=== PATIENT | male | born 1975 | race Caucasian/White ===

== ENCOUNTER 2019-02-24 17:38 | Emergency (ER) | payer OTHER ==
[2019-02-24 18:55] LABS: Urine Bacteria 20-50 /HPF (NONE SEEN); Urine Culture Reflex Order REFLEXED; Urine RBC >50 /HPF (NONE SEEN)
[2019-02-24 18:56] LABS: Urine Blood 3+ (NEG); Urine Glucose NEGATIVE (NEG); Urine Protein 2+ (NEG); Urine pH 6.5 (5.0-7.0)
[2019-02-24] MEDS ORDERED: levoFLOXacin 750 MG TAB ONE (19:05)
--- NOTE | 2019-02-24 19:17 | EDPHYS ---
Physician Documentation [facility] Name: Navi Harp Age: 44 yrs Sex: Male : 1975 Arrival Date: 02/24/2019 Time: 17:40 Bed 19 Private MD: ED Physician Jose Agustin HPI: 02/24 18:00 This 44 yrs old Male presents to ER via Ambulatory with complaints of Urinary cp Problem. Historical: - Allergies: 17:44 tramadol; hj - Home Meds: 19:14 Seroquel 300 mg Oral tab 2 tabs at night [Active]; trazodone 150 mg Oral tab 1 tab OD rr5 [Active]; doxepin 10 mg Oral cap 1 cap nightly [Active]; topiramate oral oral [Active]; lorazepam 2 mg Oral tab 1 tablet am 3 tablet night [Active]; - PMHx: 17:44 autism; hj - PSHx: 17:44 Cholecystectomy; Appendectomy; hj - Immunization history:: Adult Immunizations up to date. - Social history:: Smoking status: Patient/guardian denies using tobacco, Patient/guardian denies using alcohol, street drugs. - Ebola Screening: : Patient negative for fever greater than or equal to 101.5 degrees Fahrenheit, and additional compatible Ebola Virus Disease symptoms Patient denies exposure to infectious person Patient denies travel to an Ebola-affected area in the 21 days before illness onset. ROS: 18:10 Constitutional: Negative for fever. cp 18:10 Eyes: Negative for discharge, redness. cp 18:10 Respiratory: Negative for cough, wheezing. 18:10 Abdomen/GI: Negative for vomiting, diarrhea, constipation. 18:10 : Positive for hematuria. 18:10 Neuro: Negative for altered mental status. 18:10 All other systems are negative. Exam: 18:15 Constitutional: The patient appears in no acute distress, alert, awake, non-toxic, well cp developed, well nourished, obese. 18:15 Head/Face: Normocephalic, atraumatic. cp 18:15 Eyes: Periorbital structures: appear normal, Conjunctiva: normal, no exudate, no injection, Sclera: no appreciated abnormality, Lids and lashes: appear normal, bilaterally. 18:15 ENT: External ear(s): are unremarkable, Nose: is normal, Mouth: is normal. 18:15 Chest/axilla: Inspection: normal. 18:15 Cardiovascular: Rate: tachycardic. 18:15 Respiratory: the patient does not display signs of respiratory distress, Respirations: normal, no use of accessory muscles, no retractions, no splinting, no tachypnea. 18:15 Abdomen/GI: Inspection: abdomen appears normal, Palpation: abdomen is soft and non-tender, in all quadrants, involuntary guarding, is not appreciated. 18:15 Back: CVA tenderness, is absent. 18:15 Neuro: Orientation: no acute changes, per family, Mentation: no acute changes, per family. Vital Signs: 17:44 BP 124 / 75; Pulse 105; Resp 18; Temp 98.3(O); Pulse Ox 96% on R/A; Weight 120.66 kg; hj Height 5 ft. 9 in. (175.26 cm); 19:20 BP 108 / 84; Pulse 88; Resp 19; Temp 97.8; Pulse Ox 97% ; rr5 17:44 Body Mass Index 39.28 (120.66 kg, 175.26 cm) MDM: 17:51 Patient medically screened. cp 18:00 Differential diagnosis: UTI, prostatitis, urethritis, sepsis, kidney stone. cp 19:15 Data reviewed: vital signs, nurses notes. cp 19:15 Counseling: I had a detailed discussion with the patient and/or guardian regarding: the cp historical points, exam findings, and any diagnostic results supporting the discharge/admit diagnosis, lab results, the need for outpatient follow up, a family practitioner, to return to the emergency department if symptoms worsen or persist or if there are any questions or concerns that arise at home. 02/24 17:49 Order name: Urine Microscopic Only; Complete Time: 18:59 cp 02/24 18:59 Interpretation: Normal except: UWBC >50; URBC >50; UBACT 20-50. cp 02/24 18:00 Order name: Urine Dipstick--Ancillary (enter results); Complete Time: 18:59 bd 02/24 18:59 Interpretation: Normal except: UBLD 3+; UPROT 2+; UESTR 3+. cp 02/24 17:49 Order name: Urine Dipstick-Ancillary (obtain specimen); Complete Time: 18:57 cp 02/24 18:31 Order name: Urine Culture cp Administered Medications: 19:02 CANCELLED (Physician Discretion): Cipro 500 mg PO once cp 19:10 Drug: LevaQUIN 750 mg Route: PO; cc3 19:26 Follow up: Response: Medication administered at discharge. rr5 Disposition: 19:30 Chart complete. cp Disposition: 02/24/19 19:16 Discharged to Home. Impression: Urinary tract infection, site not specified. - Condition is Stable. - Discharge Instructions: Urinary Tract Infection, Adult. - Prescriptions for Levaquin 750 mg Oral Tablet - take 1 tablet by ORAL route once daily for 8-10 days start evening of 02-25-2019; 9 tablet. - Medication Reconciliation Form, Thank You Letter, Antibiotic Education, Prescription Opioid Use form. - Follow up: Private Physician; When: 2 - 3 days; Reason: Recheck today's complaints. - Problem is new. - Symptoms have improved. Addendum: 02/26/2019 19:42 Co-signature as Attending Physician, Jose Agustin MD. r n Signatures: Dispatcher [employer] EDMS Jose Agustin MD MD rn Joaquin, Henry RN Mark Mahan PA PA cp Jamila Hill cc3 Bassam Dangelo RN RN rr5 Corrections: (The following items were deleted from the chart) 02/24 19:02 19:02 Cipro 500 mg PO once ordered. cp cp 19:26 19:16 02/24/2019 19:16 Discharged to Home. Impression: Urinary tract infection, site rr5 not specified. Condition is Stable. Forms are Medication Reconciliation Form, Thank You Letter, Antibiotic Education, Prescription Opioid Use. Follow up: Private Physician; When: 2 - 3 days; Reason: Recheck today's complaints. Problem is new. Symptoms have improved. cp
--- NOTE | 2019-02-24 19:17 | ER ---
Nurse's Notes [facility] Name: Navi Harp Age: 44 yrs Sex: Male : 1975 Arrival Date: 02/24/2019 Time: 17:40 Bed 19 Private MD: Diagnosis: Urinary tract infection, site not specified Presentation: 02/24 17:42 Presenting complaint: Mother states: i have a sample of his urine and its full of blood hj and i had this sample 20 mins ago; denies fever and chills; dx with autism. Transition of care: patient was not received from another setting of care. Onset of symptoms was February 24, 2019. Risk Assessment: Do you want to hurt yourself or someone else? Patient reports no desire to harm self or others. Initial Sepsis Screen: Does the patient meet any 2 criteria? No. Patient's initial sepsis screen is negative. Does the patient have a suspected source of infection? No. Patient's initial sepsis screen is negative. Care prior to arrival: None. 17:42 Method Of Arrival: Ambulatory 17:42 Acuity: ANABEL 4 hj Historical: - Allergies: 17:44 tramadol; hj - Home Meds: 19:14 Seroquel 300 mg Oral tab 2 tabs at night [Active]; trazodone 150 mg Oral tab 1 tab OD rr5 [Active]; doxepin 10 mg Oral cap 1 cap nightly [Active]; topiramate oral oral [Active]; lorazepam 2 mg Oral tab 1 tablet am 3 tablet night [Active]; - PMHx: 17:44 autism; hj - PSHx: 17:44 Cholecystectomy; Appendectomy; hj - Immunization history:: Adult Immunizations up to date. - Social history:: Smoking status: Patient/guardian denies using tobacco, Patient/guardian denies using alcohol, street drugs. - Ebola Screening: : Patient negative for fever greater than or equal to 101.5 degrees Fahrenheit, and additional compatible Ebola Virus Disease symptoms Patient denies exposure to infectious person Patient denies travel to an Ebola-affected area in the 21 days before illness onset. Screenin:00 Abuse screen: no apparent signs noted. Nutritional screening: No deficits noted. em Tuberculosis screening: No symptoms or risk factors identified. Fall Risk None identified. Assessment: 18:00 General: Appears in no apparent distress. comfortable, Behavior is calm, cooperative, em Denies fever. Pain: Unable to use pain scale. FLACC scale score is 0 out of 10. Neuro: Level of Consciousness is awake, alert, obeys commands, Oriented to person, place, time. Cardiovascular: Capillary refill < 3 seconds Patient's skin is warm and dry. Respiratory: Airway is patent Respiratory effort is even, unlabored, Respiratory pattern is regular, symmetrical. GI: Abdomen is flat, Patient currently denies nausea, vomiting. : Reports hematuria. Derm: Skin is intact, is healthy with good turgor, Skin is pink, warm \T\ dry. Musculoskeletal: Capillary refill < 3 seconds, Range of motion: intact in all extremities. 19:24 Reassessment: Patient appears in no apparent distress at this time. discharge rr5 instruction given and explained to transmission technician without complaints made. vitally stable. Vital Signs: 17:44 BP 124 / 75; Pulse 105; Resp 18; Temp 98.3(O); Pulse Ox 96% on R/A; Weight 120.66 kg; Height 5 ft. 9 in. (175.26 cm); 19:20 BP 108 / 84; Pulse 88; Resp 19; Temp 97.8; Pulse Ox 97% ; rr5 17:44 Body Mass Index 39.28 (120.66 kg, 175.26 cm) ED Course: 17:40 Patient arrived in ED. mr 17:43 Triage completed. hj 17:44 Arm band placed on left wrist. 17:48 [facility] 17:48 Jose Agustin MD is Attending Physician. cp 17:54 Irvin Kaba LVN is Primary Nurse. em 18:00 Patient has correct armband on for positive identification. Bed in low position. Call em light in reach. Adult w/ patient. 18:00 Urine collected: clean catch specimen, blood tinged. em 19:25 No provider procedures requiring assistance completed. Patient did not have IV access rr5 during this emergency room visit. Administered Medications: 19:02 CANCELLED (Physician Discretion): Cipro 500 mg PO once cp 19:10 Drug: LevaQUIN 750 mg Route: PO; cc3 19:26 Follow up: Response: Medication administered at discharge. rr5 Intake: 17:25 IV: 200ml; Total: 200ml. em Outcome: 19:16 Discharge ordered by . cp 19:25 Discharged to home ambulatory, with significant other. rr5 19:25 Condition: stable 19:25 Discharge instructions given to significant other, Instructed on discharge instructions, follow up and referral plans. medication usage, Demonstrated understanding of instructions, follow-up care, medications, Prescriptions given X 1. 19:26 Patient left the ED. rr5 Signatures: Wade, Lu Kaba, Irvin, CATALYST IMPREGNATOR CATALYST IMPREGNATOR em Jeramy Araujo RN RN Mark Vasquez PA PA Jamila Arroyo cc3 Bassam Dangelo RN RN rr5 Corrections: (The following items were deleted from the chart) 17:47 17:44 Pulse 105bpm; Resp 18bpm; Pulse Ox 96% RA; Temp 98.3F Oral; 120.66 kg; Height 5 hj ft. 9 in.; BMI: 39.2; hj 17:49 17:42 Presenting complaint: Mother states: i have a sample of his urine and its full of hj blood and i had this sample 20 mins ago; denies fever and chills; hj 18:58 18:00 Urine collected: clean catch specimen, clear, em em
== END 2019-02-24 19:26 | disposition home or self-care (01) ==
LOC: ER 17:38
DX: N39.0 Urinary tract infection, site not specified (principal); F84.0 Autistic disorder; Z88.5 Allergy status to narcotic agent
CPT/HCPCS: 81003; 81015; 87086; 87088; 99283

== ENCOUNTER 2022-04-04 11:50 | Day surgery (SDC) | payer OTHER ==
[2022-04-04] MEDS ORDERED: PHENYLEPHRINE 10% OPTH 5ML ONE (12:56)
[2022-04-04] MEDS ORDERED: CYCLOPENTOLATE 1% OPTH 2 ML ONE (12:56)
[2022-04-04] MEDS ORDERED: KETAMINE HCL 500 MG/5 ML VIAL ONE (13:21)
[2022-04-04] MEDS ORDERED: TETRACAINE HCL 0.5% 4ML OPTH ONE (13:40)
[2022-04-04] MEDS ORDERED: NA CHLORIDE 0.9% 500 ML ONE (13:43)
[2022-04-04 15:42] LABS: Absolute Lymphocytes (CBC) 1.6 K/uL (0.7-4.9); Hematocrit 46.4 % (39.6-49.0); Lymphocytes % 16.6 % (15.3-44.8); MCV 86.2 fL (80-100); MPV 8.7 fL (7.6-11.3); RBC Red Blood Cell Count 5.38 M/uL (4.33-5.43)
[2022-04-04 16:04] LABS: Bilirubin Total 0.2 mg/dL (0.2-1.0); Magnesium 2.2 mg/dL (1.8-2.4); Potassium 4.4 mmol/L (3.5-5.1); Protein, Total 6.8 g/dL (6.4-8.2); Thyroid Stimulating Hormone 1.78 uIU/mL (0.360-3.740)
[2022-04-04 16:33] VITALS: TEMP 97; O2SAT 95
[2022-04-04 16:34] VITALS: BP 167/85
--- NOTE | 2022-04-05 03:34 | OP ---
Surgeon: Annette Paulino MD Procedure: Examination under anesthesia. The patient was given ketamine intramuscularly in the preoperative area. He was then brought to the operative room and was given 10% phenylephrine and 1% Cyclogyl drops in both eyes for dilation. We were unable to check visual acuity. His anterior segment appeared normal. His lids were normal. Conjunctivae normal. Cornea was clear. Anterior chambers formed and irises were round in both eyes. We were unable to assess pupils or motility because of lack of cooperation. His intra-ocular pressure was checked by a Luis Manuel-Pen. It was 18 mmHg in the right eye and 17 mmHg in the left eye. Retinoscopy was performed. His refraction was -0.5 +0.5 at 30 in the right eye and -1.50 in the left eye. His lens was clear in the right eye. He had about a 3+ posterior subcapsular cataract in the left eye. On funduscopic examination, his periphery, macular and vascular appeared normal in both eyes. His cup-to-disc was 0.3 in the right and 0.5 in the left . Impression: My impression is that Navi has a posterior subcapsular cataract in the left eye. He has a history of iritis, but had no apparent iritis today. The plan is to continue observation. Cataract surgery would be very difficult because of the patient's severe kyphosis and autism. I spoke with his mother and we could consider cataract surgery if he develops a cataract in the right eye, but at this time, we will continue to observe. ELLIE/JO Voice ID: [id number] Report ID: [id number] AZAEL
[2022-04-05 16:53] LABS: Folic Acid, (Folate) 19.6 ng/mL (3.1-17.5); T3 Free 2.51 pg/mL (2.18-3.98)
[2022-04-07 11:07] LABS: ZINC 81 mcg/dL (60-130)
== END 2022-04-04 16:03 | disposition home or self-care (01) ==
LOC: OR 11:50
PROVIDERS: ADMIT Ophthalmology Retina Specialist; ATTEND Ophthalmology Retina Specialist
PROC: 08J0XZZ Inspection of Right Eye, External Approach (ICD-10-PCS; 2022-04-04)
PROC: 08J1XZZ Inspection of Left Eye, External Approach (ICD-10-PCS; 2022-04-04)
PROC: 08J0XZZ Inspection of Right Eye, External Approach (ICD-10-PCS; 2022-04-04)
PROC: 08J1XZZ Inspection of Left Eye, External Approach (ICD-10-PCS; principal; 2022-04-04 13:00)
DX: H25.042 Posterior subcapsular polar age-related cataract, left eye (principal); H25.12 Age-related nuclear cataract, left eye; M45.9 Ankylosing spondylitis of unspecified sites in spine; F84.0 Autistic disorder
CPT/HCPCS: 92018 ×2; 92250 ×2; 85025; 36415; 83735; 80061; 82652; 84443; 83036; 84481; 84439; 82746; 82607; 80053; 84425; 86038; 86141; 83090; 82525; 83525; 84630; J7040

== ENCOUNTER 2022-09-06 06:31 | Day surgery (SDC) | payer OTHER ==
[2022-09-06] MEDS ORDERED: KETAMINE HCL 500 MG/5 ML VIAL ONE (06:56)
[2022-09-06] MEDS ORDERED: Ringers Lactate 1,000 ML IV ONE ×2 (06:57→11:18)
[2022-09-06] MEDS ORDERED: AMPICILLIN SODIUM 2 GM/VIAL VIAL ONE (06:57)
[2022-09-06] MEDS ORDERED: Gentamicin Inj 240 MG in NA CHLORIDE 0.9% 100 ML IV SCH (07:00)
[2022-09-06] MEDS ORDERED: MIDAZOLAM HCL 2 MG/2 ML INJ ONE (07:09)
[2022-09-06 07:56] LABS: Absolute Lymphocytes (CBC) 1.9 K/uL (0.7-4.9); Hematocrit 44.8 % (39.6-49.0); Lymphocytes % 25.8 % (15.3-44.8); MCV 86.7 fL (80-100); MPV 8.3 fL (7.6-11.3); RBC Red Blood Cell Count 5.17 M/uL (4.33-5.43)
[2022-09-06 07:58] LABS: Protime INR 1.08
[2022-09-06 08:06] LABS: Potassium 3.8 mmol/L (3.5-5.1)
[2022-09-06] MEDS ORDERED: FENTANYL CITR 100 MCG/2 ML ONE (09:01)
[2022-09-06] MEDS ORDERED: propofoL 200 MG/20 ML VIAL IV ONE (09:01)
[2022-09-06] MEDS ORDERED: ROCURONIUM 50 MG/5 ML VIAL IV ONE (09:01)
[2022-09-06] MEDS ORDERED: LIDOCAINE 1% MPF 5 ML VIAL ONE (09:01)
[2022-09-06] MEDS ORDERED: ONDANSETRON 4 MG/2 ML VIAL ONE (09:51)
[2022-09-06] MEDS ORDERED: KETOROLAC 30 MG/ML INJ ONE (10:43)
--- NOTE | 2022-09-06 11:44 | RAD REPORT ---
EXAM DESCRIPTION: RAD - Urethrocystogrphy Retrograde - 09/06/2022 11:26 am CLINICAL HISTORY: RIGHT STENT COMPARISON: No comparisons FINDINGS/IMPRESSION: Multiple intraoperative fluoroscopic images were submitted showing cannulation of the right ureter with retrograde injection of contrast and placement of a right-sided ureteral siddhartha nt. Fluoro time: 1 minutes 31 seconds Dose: 75.4 mGy
[2022-09-06] MEDS ORDERED: CODEINE 30MG/APAP 300MG TAB PO PRN (12:31)
[2022-09-06] MEDS ORDERED: PHENAZOPYRIDINE 100MG TAB PO ONE (12:31)
[2022-09-06] MEDS ORDERED: CODEINE 30MG/APAP 300MG TAB ONE (13:40)
--- NOTE | 2022-09-06 14:35 | OP ---
Surgeon: SERGIO NAVA Preoperative Diagnoses: 1.Retained right ureteral stent. 2.Left staghorn renal calculus. Postoperative Diagnoses: 1.Retained right ureteral stent. 2.Left staghorn renal calculus. 3.Encrusted right ureteral stent, not removable. 4.Meatal stenosis. 5.Urethral stricture disease. 6.Ureteral stricture disease. Principal Procedures: 1.Cystoscopy with right retrograde pyelography. 2.Attempted right ureteral stent extraction. 3.Right ureteroscopy with laser lithotripsy of calcified ureteral stent. 4.Right 6-Burundian by 26 cm new ureteral stent placed alongside retained ureteral stent, unable to be extracted. 5.Meatal dilation using sounds. Indication For Procedure: Mr. Harp is a 47-year-old gentleman with some developmental delay and h istory of seizure disorder, on Topamax, who previously underwent a right PCNL by Dr. Ferris in 2019 wit h ureteral stent retained since that time associated with residual 1.1 cm right nephrolithiasis and a left staghorn calculus. He underwent a CT scan of the abdomen and pelvis, which revealed the presen ce of the stent with some calcifications along the course of the stent without appreciable stone cruz en extensive along the stent otherwise. As a result, he was counseled for the opportunity to attempt right ureteral stent extraction cystoscopically recognizing that if this failed, he would require a percutaneous approach. Procedure In Detail: The patient was consented in the preoperative holding area with his mother who consented on his behalf before he was transferred to the operative suite where general anesthesia was induced. Ketamine was required to anesthetize him in order to obtain the preoperative labs and EKG as well as to place an IV. Upon entry into the operative suite, general anesthesia was induced and h e was a difficult intubation due to his habitus and spinal abnormalities. He was then placed in the lithotomy position, extensively padded and secured to the table appropriately due to some lateral dys tocia of his hips and issues managing that with the Yellofin stirrups. His genitalia were prepped wi th Hibiclens and he was draped in standard fashion. The case was begun using a 22-Burundian rigid cysto scope to attempt to enter the meatus; however, there was significant meatal stenosis that prevented p assage of the cystoscope. As a result, urethral sounds were required to dilate the meatus and fossa navicularis to 26-Burundian and then I was able to successfully pass the cystoscope into his meatus and via his urethra into his bladder. Upon traversing his urethra, in the perineal urethra there was sandra dence of some stricture formation that was nonocclusive. As a result, I entered his bladder with eas e and decompressed it of some significant cloudy appearing urine. Preoperative urine culture was sig nificant only for nonspecific growth. As previously stated, he was given gentamicin 2-3 mg/kg IV ant imicrobial prophylaxis along with ampicillin. The stent was then visualized emanating from the right ureteral orifice and was significantly calcified along the coil of the stent. I was able to utilize the alligator graspers to disrupt some of the calcifications off the coil of the stent and then gras p the tip of the stent and attempt to deliver it to the meatus. The stent was able to be delivered j ust to the meatus until a portion of significant resistance was encountered. It was internally encru sted that I was unable to pass a Sensor wire via the stent; so I utilized a snap to hold the stent in its position at the meatus while performing a cystoscopy alongside the stent. Fluoroscopic imagery confirmed the proximal coil of the stent was situated at the level of the ureteropelvic junction and was still coiled indicative of proximal ureteral stent coil calcification. As a result, I passed a 5 -Burundian ureteral access catheter via the cystoscope into the ureteral orifice alongside the retained stent and performed a retrograde pyelogram. Right retrograde pyelography: Using a 70:30 mixture of Omnipaque and saline, contrast was injected via the lumen of the 5-Burundian ur eteral access catheter and did propagate up in irregular right ureteral lumen with some points of dil ation alternating with point of obstruction along the entirety of the course of the ureteral lumen. Contrast did enter the renal pelvis, which was significantly dilated and so I passed the 5-Burundian ure teral access catheter over a Sensor wire, which had been placed via the 5-Burundian ureteral access cath eter, all the way into the renal pelvis and aspirated it of approximately 150-200 cc of cloudy urine. This urine was sent for culture as right renal aspirate urine culture. I then coiled the Sensor wi re within his collecting system before removing the 5-Burundian ureteral access catheter and then perfor cece direct vision semi-rigid ureteroscopy alongside the wire and the retained stent. I was able to navigate the semi-rigid ureteroscope into the mid ureter before it reached a point of obstruction and would no longer pass. While there was calcification along the entirety of the stent, it was not mos tly obstructed along the course of the stent. There was just evidence of ureteral stricture disease along the course of the stent. As a result, since I was unable to reach the proximal coil where the obstruction and prevention of removal of the stent was likely present, I passed a Bentson guidewire u nder direct vision via the semi-rigid ureteroscope into the collecting system coiling and alongside t he safety wire. I then passed a ureteral access sheath over the Bentson guidewire, but only guided i nto the mid distal ureter where it reached 1 of the initial points of ureteral strictured obstruction . It would not pass beyond this, so I passed a flexible ureteroscope over the wire and was able to s uccessfully navigate it all the way into the renal pelvis. I then surveyed the pelvis down to the UP J where the coil of the stent was observed and was indeed significantly calcified with stone occupyin g the central component of the proximal coil of the stent prohibiting its uncoiling. As a result, I employed a 200 nm laser fiber and attempted to fragment the stone off that coil. While I was able to fragment some of the stone, unfortunately now that the stent was situated in the position at the UPJ , I was unable to target the coil adequately given the angulation of the flexible ureteroscope to rem ove sufficient calcification to be able to dislodge it and remove the ureteral stent. Despite attemp ts to try to advance the stent back up the ureter and deliver the coil more into the renal pelvis for further use of flexible ureteroscopic management, this was afforded. As a result, I removed the ure teroscope and back-loaded the cystoscope over the indwelling safety wire before passing a 6-Burundian by 26 cm double-J right ureteral stent fresh one alongside the retained encrusted right ureteral stent. This was placed to decompress his hydronephrotic right renal unit. I then removed the Super Stiff wire that was passed via the flexible ureteroscope as a place gracia while attempting to pass the ret ained stent back more into his pelvis as previously described. In the end, I decompressed his bladde r of fluid and urine and left a 20-Burundian urethral Campuzano catheter to allow further decompression of h is right renal unit and hydronephrosis. The remaining coil of the retained right ureteral stent dist ally was delivered back into his bladder and the patient was taken out of the lithotomy position be re being awakened from general anesthesia, transferred to a stretcher, and then transferred to the re covery room in good condition. Complications: None. Discharge Disposition: He will require a percutaneous approach to extraction of the right ureteral s tent, and given the massive size of his left staghorn calculus, he will also require left PCNL. LAUREN/JO Voice ID: [id number] Report ID: [id number]
[2022-09-06 15:15] VITALS: BP 153/94; TEMP 96.2; O2SAT 97
--- NOTE | 2022-09-06 17:08 | EKG ---
Test Date: 2022-09-06 Test Time: 07:28:38 Superintendent Local: WANDA MEASUREMENT RESULTS: Intervals: Rate: 76 HI: 168 QRSD: 102 QT: 380 QTc: 427 [place]: P: 28 HI: 168 QRS: 34 T: 81 INTERPRETIVE STATEMENTS: Normal sinus rhythm Nonspecific T wave abnormality Abnormal ECG No previous ECG available for comparison Electronically Signed On 09-06-22 17:08:02 TAXI SERVICER by Chaitanya Gibson
--- NOTE | 2022-09-07 00:14 | P.CNS ---
Date of Consult: 09/07/22 47-year-old autistic gentleman with seizure disorder and recurrent nephrolithiasis s/p right PCNL over a year ago by Dr. Ferris at [facility] with retained and encrusted right ureteral stent s/p attempted right ureteral stent extraction with ureteroscopy and laser lithotripsy of stone along the encrusted stent before the procedure was aborted due to inability to relieve sufficient stone burden from the stent in order to remove the stent. During the procedure, very cloudy and purulent appearing urine was aspirated from the c ollecting system and sent for culture as right renal aspirate urine culture, and a fresh double-J stent was placed alongside the indwelling encrusted and retained right ureteral stent. The patient was transferred to the recovery room with a urethral Campuzano catheter in place, which was removed prior to his discharge from day surgery. He was given perioperative antimicrobials per routine, and preoperative urine culture revealed nonspecific growth, but despite this, the patient contacted me via the answering service with fever above 102 and some tachypnea. As a result, I recommended prompt emergency department evaluation. Patient seen in the emergency department. At his behavioral baseline according to his mother No tachypnea or dyspnea at this time Persistent tachycardia with heart rate in the 110-120 range Patient awake and in no apparent distress He had been voiding with some hematuria apparent Blood cultures x2 obtained Assessment and recommendation: 7-year-old autistic gentleman with seizure disorder and recurrent nephrolithiasis s/p right PCNL over a year ago by Dr. Ferris at [facility] with retained and encrusted right ureteral stent s/p attempted right ureteral stent extraction with ureteroscopy and laser lithotripsy of stone along the encrusted stent, aborted, now with pyelonephritis, possible sepsis. -Confirm intraoperative right renal aspirate urine culture in process -Initiate cefepime IV antimicrobial therapy -Resuscitative IV fluid therapy -Inpatient management and monitoring
--- NOTE | 2022-09-07 02:07 | P.HP ---
Certification for Inpatient Patient admitted to: Inpatient With expected LOS: >2 Midnights Patient will require the following post-hospital care: None Practitioner: I am a practitioner with admitting privileges, knowledge of patient current condition, hospital course, and medical plan of care. Services: Services provided to patient in accordance with Admission requirements found in Title 42 Section 412.3 of the Code of Federal Regulations Patient History Date of Service: 09/07/22 Reason for admission: Severe sepsis, pyelonephritis History of Present Illness: 47-year-old male with history of autism, hypertension, seizure disorder had a procedure yesterday on 09/06/[address] Joyner with attempted right ureteral stent extraction. Patient has had a right ureteral stent in place for the last 3 years. During the procedure he was noted to have retained right ureteral stent, left staghorn renal calculus, encrusted right ureteral stent not removable, meatal stenosis, urethral stricture. The right-sided stent was unable to be removed during the procedure, a right 6 Telugu by 26 cm new ureteral stent was placed alongside the retained ureteral stent, patient also had meatal dilation using sounds intraoperatively. Patient was given intraoperative antibiotics and subsequently discharged home with prescription for Augmentin patient is nonverbal, mother reports that she noticed patient was breathing fast and shallow and checked his temperature, found to be febrile to 102 and brought him into the emergency department for evaluation. Patient was noted to be febrile, tachycardic upon arrival to the emergency department he was given 30 cc/kg IV fluid bolus Labs were significant for marked leukocytosis, bandemia lactic acid 2.1 moderately elevated high-sensitivity troponin. Case was discussed with urology, patient was started on cefepime in the emergency department. Blood cultures were obtained, also noted that patient received intraoperative urine culture during his procedure yesterday. We will need to follow-up for these results. Patient needs criteria for severe sepsis, will admit for further evaluation and management. Allergies Sulfa (Sulfonamide Antibiotics) Adverse Reaction (Verified 09/06/22 08:02) Nausea/Vomiting tramadol Adverse Reaction (Verified 09/06/22 08:02) very depressed, lethargic Home Medications: LORazepam [Ativan*] 2 mg PO DAILY WITH BREAKFAST 07/22/15 LORazepam [Ativan*] 4 mg PO BEDTIME 07/22/15 Trazodone [Desyrel*] 225 mg PO BEDTIME 07/22/15 Buspirone HCl [Buspar] 20 mg PO BEDTIME 03/30/22 Acetaminophen with Codeine [Acetaminophen-Cod #4 Tablet] 1 each PO BIDP PRN 08/31/22 Cenobamate [Xcopri] 200 mg PO DAILY 08/31/22 Duloxetine HCl [Cymbalta] 2 cap PO BEDTIME 08/31/22 Famotidine [Pepcid] 40 mg PO BEDTIME 08/31/22 L.acidoph,Paracasei, B.lactis [Probiotic] 6 each PO DAILY 08/31/22 Multivitamin 1 each PO DAILY 08/31/22 [place]-3 Fatty Acids [[place]-3] 2 cap PO DAILY 08/31/22 Quetiapine Fumarate [Seroquel] 2 tab PO BEDTIME 08/31/22 Tamsulosin HCl 0.4 mg PO DAILY 08/31/22 hydrOXYzine HCL [Atarax] 100 mg PO DAILY 08/31/22 hydroCHLOROthiazide [Hydrochlorothiazide] 25 mg PO BEDTIME 08/31/22 Amox/Clavulanate [Augmentin 875-125 Tab] 1 each PO BID #14 tab 09/06/22 - Past Medical/Surgical History -: Autism -: Seizure disorder -: Hypertension -: Ureteral stent Psychosocial/ Personal History: Patient lives at home with his mother who is his primary caregiver. - Family History Family History: Reviewed- Non-Contributory - Social History Smoking Status: Never smoker Alcohol use: No CD- Drugs: No Caffeine use: No Place of Residence: Home Review of Systems is unable to be obtained Physical Examination - Vital Signs Temperature: 96.2 F Blood Pressure: 153/94 Pulse: 95 Respirations: 19 - Physical Exam General: Alert, Obese, Other (Nonverbal at baseline, appears uncomfortable/agitated) HEENT: Atraumatic, Normocephalic Neck: Supple Respiratory: Clear to auscultation bilaterally Cardiovascular: No edema, Normal pulses Capillary refill: <2 Seconds Gastrointestinal: Normal bowel sounds, No tenderness Musculoskeletal: No swelling, No contractures, No erythema Integumentary: No breakdown, No significant lesion Neurological: Other (Nonverbal) - Studies Laboratory Data (last 24 hrs) 09/06/22 07:38: PT 11.9, INR 1.08 09/06/22 07:38: Sodium 139, Potassium 3.8, BUN 20 H, Creatinine 1.09, Glucose 110 H 09/06/22 07:38: WBC 7.30, Hgb 14.7, Hct 44.8, Plt Count 200 Assessment and Plan - Plan Assessment: Severe sepsis secondary to pyelonephritis with retained right ureteral stent S/P new right-sided ureteral stent placement 09/06 Elevated troponin Seizure disorder Hypertension Autism-nonverbal at baseline Plan: Severe sepsis secondary to pyelonephritis with retained right ureteral stent S/P new right-sided ureteral stent placement 09/06 Seen by urology in ED, continue cefepime. Follow intraoperative urine cultures from procedure on 09/06. Patient received 30 cc/kg IV fluid bolus, initial lactate 2.1 will trend. Blood cultures obtained. Elevated troponin Suspect demand ischemia, cardiology consulted, echocardiogram ordered. Systemic anticoagulation not ordered given recent surgical procedure, hematuria, suspected demand ischemia related to sepsis. Seizure disorder continue home medications Autism-nonverbal at baseline Noted, at baseline per mother Hypertension Hold oral antihypertensive agents in the setting of sepsis, restart when appropriate. DVT PPX: Lovenox Code status:Full Discharge Plan: Home Plan to discharge in: Greater than 2 days - Advance Directives Does patient have a Living Will: No Does patient have a Durable POA for Healthcare: No - Code Status/Comfort Care Code Status Assessed: Yes (Full code) Critical Care: No Time Spent Managing Pts Care (In Minutes): 70
== END 2022-09-06 14:50 | disposition home or self-care (01) ==
LOC: OR 06:31
PROVIDERS: ATTEND Urology
PROC: 0TF68ZZ Fragmentation in Right Ureter, Via Natural or Artificial Opening Endoscopic (ICD-10-PCS; 2022-09-06)
PROC: 0T768DZ Dilation of Right Ureter with Intraluminal Device, Via Natural or Artificial Opening Endoscopic (ICD-10-PCS; principal; 2022-09-06 08:30)
DX: N20.2 Calculus of kidney with calculus of ureter (principal); N35.911 Unspecified urethral stricture, male, meatal; N13.5 Crossing vessel and stricture of ureter without hydronephrosis; Z18.89 Other specified retained foreign body fragments; N35.914 Unspecified anterior urethral stricture, male
CPT/HCPCS: 36415; 51610; 74450; 80048; 85025; 85610; 87086; 87088; 88108; 88305; 93005; J0290; J1580; J2001; J2250; J2405; J2704; J3010; J7120

== ENCOUNTER 2022-09-06 19:51 | Inpatient (IN) | payer OTHER ==
--- NOTE | 2022-09-06 21:38 | ER ---
Nurse's Notes [facility] Name: aNvi Harp Age: 47 yrs Sex: Male : 1975 Arrival Date: 09/06/2022 Time: 19:53 Bed 5 Private MD: Diagnosis: Pyelonephritis acute;Chronic obstructive pyelonephritis;Autistic disorder;Obesity, unspecified;Fever, unspecified;Severe sepsis without septic shock;Elevated white blood cell count;Bandemia;Unspecified kidney failure-insufficency Presentation: 09/06 20:58 Chief complaint: Parent and/or Guardian states: had stent removlal procedure with dr nanci joyner today unable to remove stent mother reports pt now running fever has hematuria and newly incontinent. Coronavirus screen: Vaccine status: Patient reports receiving the 2nd dose of the covid vaccine. Ebola Screen: Patient negative for fever greater than or equal to 101.5 degrees Fahrenheit, and additional compatible Ebola Virus Disease symptoms. Initial Sepsis Screen:. 20:58 Method Of Arrival: Wheelchair kl 20:58 Acuity: ANABEL 3 kl 21:04 Acuity: ANABEL 2 kl 21:07 Initial Sepsis Screen: Does the patient meet any 2 criteria? Temp <36.0*C (96.8*F)) or kl > 38.3*C (100.9*F). Altered Mental Status. HR > 90 bpm. Yes Does the patient have a suspected source of infection? Yes: Dysuria/Frequency/Urgency/UTI. 22:00 Risk Assessment: Do you want to hurt yourself or someone else? Patient reports no [facility] desire to harm self or others. 22:00 Onset of symptoms was September 06, 2022. jb4 Triage Assessment: 21:01 General: Appears distressed, uncomfortable, Behavior is agitated, anxious. Pain: Unable to use pain scale. Does not appear to understand pain scale. Historical: - Allergies: 21:00 tramadol; kl 21:00 Sulfa (Sulfonamide Antibiotics); kl - Home Meds: 21:02 Augmentin Oral [Active]; BP Med [Active]; kl - PMHx: 21:00 autism; kidney stone; kl 21:02 Hypertensive disorder; kl - PSHx: 21:00 renal stent; kl - Immunization history:: Adult Immunizations up to date. - Social history:: Smoking status: Patient denies any tobacco usage or history of. - Family history:: not pertinent. Screenin:00 [facility] ED Fall Risk Assessment (Adult) History of falling in the last 3 months, jb4 including since admission No falls in past 3 months (0 pts) Confusion or Disorientation No (0 pts) Score/Fall Risk Level 0 - 2 = Low Risk Oriented to surroundings, Maintained a safe environment. Abuse screen: Denies threats or abuse. Nutritional screening: No deficits noted. Tuberculosis screening: No symptoms or risk factors identified. Assessment: 22:00 General: Appears distressed, uncomfortable, Behavior is cooperative, anxious. Pain: jb4 Unable to use pain scale. FLACC scale score is 0 out of 10. Neuro: Level of Consciousness is awake, alert, obeys commands, Oriented to Unable to assess due to autism.. Cardiovascular: Patient's skin is warm and dry. Respiratory: Airway is patent Respiratory effort is even, labored, Respiratory pattern is symmetrical, tachypnea. GI: Abdomen is non-distended, obese. : Parent/caregiver report the patient having incontinence since Since surgery with hematuria. EENT: No signs and/or symptoms were reported regarding the EENT system. Derm: Skin is intact, Skin is pink, warm \T\ dry. Musculoskeletal: Circulation, motion, and sensation intact. Range of motion: intact in all extremities. 23:00 Reassessment: Per Dr. Joyner, Urine sample was sent from OR during the pt visit this jb4 morning and a new sample is not needed as long as lab received the first. Verified lab received sample. 23:00 Reassessment: Patient appears in no apparent distress at this time. No changes from jb4 previously documented assessment. Patient and/or family updated on plan of care and expected duration. Pain level reassessed. 09/07 00:00 Reassessment: Pt is resting in bed with eyes closed, respirations are even and jb4 unlabored, no s/s of pain or distress noted. 01:00 Reassessment: Patient appears in no apparent distress at this time. No changes from jb4 previously documented assessment. Patient and/or family updated on plan of care and expected duration. Pain level reassessed. 02:00 Reassessment: Patient appears in no apparent distress at this time. No changes from jb4 previously documented assessment. Patient and/or family updated on plan of care and expected duration. Pain level reassessed. 03:00 Reassessment: Patient appears in no apparent distress at this time. No changes from jb4 previously documented assessment. Patient and/or family updated on plan of care and expected duration. Pain level reassessed. 04:00 Reassessment: Pt is awake and alert at this time, respirations are even and unlabored jb4 with no s/s of pain or distress noted. mother remains at the bedside. 04:53 Reassessment: Patient and/or family updated on plan of care and expected duration. Pain jb4 level reassessed. Pt changed, bed bath given, placed in Gown and in hospital bed, mother given reclining chair to rest in. respirations continue to be labored and tachypneic. Mother refused further attempts at an EKG due to it making the pt more upset and not wanting to get him more worked up now that he is more calm with staff. 06:42 Reassessment: Attempted second IV for morning lab draws, initial IV no longer giving jb4 blood, flushes well with no s/s of infiltration or phlebitis. Mother agreed to attempt EKG. EKG read sinus rhythm at 100 bpm. Pt tolerated second IV attempt and EKG well. 17:46 Reassessment: attempted to call report to 4th floor. stated the nurse will call me back.ph Vital Signs: 09/06 21:03 BP 113 / 72; Pulse 132; Temp 101.2(TE); Pulse Ox 97% ; kl 22:00 BP 119 / 79; Pulse 120; Resp 29; Pulse Ox 92% on 2 lpm NC; jb4 23:28 Weight 132 kg (M); jb4 09/07 00:00 BP 120 / 76; Pulse 116; Resp 19; Temp 98.1(TE); Pulse Ox 92% on 2 lpm NC; jb4 04:00 BP 107 / 67; Pulse 99; Resp 24; Temp 98.6(TE); Pulse Ox 91% on 2 lpm NC; jb4 ED Course: 09/06 19:53 Patient arrived in ED. jj6 20:20 Mark Blake MD is Attending Physician. [facility] 21:00 Triage completed. 21:37 Adam Correa MD is Hospitalizing Provider. [facility] 21:38 Bassam Agustin MD is Hospitalizing Provider. la1 22:00 Arm band placed on right wrist. jb4 22:00 Initial lab(s) drawn, by me, sent to lab. Inserted saline lock: 22 gauge in right jb4 forearm, using aseptic technique. Blood collected. 09/07 00:32 Notified ED physician of a critical lab result(s). Lac 2.1, Trop 165.3. ll3 00:48 Notified ED physician of a critical lab result(s). wbc 252.2. kl 01:31 Notified ED physician of a critical lab result(s). Bands 26%. kl 03:28 Manuel Hilliard, RN is Primary Nurse. jb4 06:55 No provider procedures requiring assistance completed. Patient admitted, IV remains in jb4 place. 07:29 Patient has correct armband on for positive identification. Placed in gown. Bed in low kc6 position. Call light in reach. Side rails up X2. Adult w/ patient. Administered Medications: 09/06 23:54 Drug: Tylenol 1000 mg Route: PO; jb4 23:54 Drug: Cefepime 2 grams Route: IVPB; Rate: 200 ml/hr; Infused Over: 30 mins; Site: right jb4 forearm; 23:54 Drug: NS 0.9% (30 ml/kg) 30 ml/kg Route: IV; Rate: bolus; Site: right forearm; jb4 09/07 00:49 Drug: morphine 2 mg Route: IVP; Infused Over: 4 mins; Site: right forearm; lg3 Medication: 07:29 VIS not applicable for this client. kc6 Outcome: 09/06 21:38 Decision to Hospitalize by Provider. [facility] 09/07 04:57 Admitted to ER Hold. Please see [facility] for further documentation. jb4 Condition: stable Discharge instructions given to family, Instructed on the need for admit, Demonstrated understanding of instructions. 18:36 Patient left the ED. kc6 Signatures: Manuela Hoffman, RN Mark Arteaga MD MD cha Attema, Lee, CONDENSER CLEANER-C CONDENSER CLEANER-Cla1 Taty Mo RN RN Manuel Hilliard RN RN jb4 Loly Pathak RN RN lg3 Ngozi Hernandez j6 Lb Lowry RN RN 3 Jeri Cortez RN RN kc6 Corrections: (The following items were deleted from the chart) 09/06 21:00 21:00 PMHx: Autism; kl kl 09/07 05:19 04:53 Reassessment: Patient and/or family updated on plan of care and expected jb4 duration. Pain level reassessed. Pt changed, bed bath given, placed in Gown and in hospital bed, mother given reclining chair to rest in. respirations continue to be labored and tachypneic. jb4 06:51 09/06 23:54 BP 119 / 79; Pulse 120bpm; Resp 29bpm; Pulse Ox 92% 2 lpm Nasal Cannula; [id number]
--- NOTE | 2022-09-06 21:39 | EDPHYS ---
Physician Documentation [facility] Name: Navi Harp Age: 47 yrs Sex: Male : 1975 Arrival Date: 09/06/2022 Time: 19:53 Bed 5 Private MD: Mark Eid HPI: 09/06 21:26 This 47 yrs old Male presents to ER via Wheelchair with complaints of Post shellie Surgical Bleeding, Post Surgical Pain. 21:26 The patient complains of pain in the right mid back and right low back. The pain does shellie not radiate. Onset: The symptoms/episode began/occurred 1 day(s) ago. Modifying factors: The symptoms are alleviated by nothing. the symptoms are aggravated by nothing. The patient presents with pain and weakness. The symptoms are located in the right mid back and right low back. Onset: The symptoms/episode began/occurred 1 day(s) ago. Modifying factors: The patient symptoms are alleviated by nothing, the patient symptoms are aggravated by any movement. Historical: - Allergies: 21:00 tramadol; kl 21:00 Sulfa (Sulfonamide Antibiotics); kl - Home Meds: 21:02 Augmentin Oral [Active]; BP Med [Active]; kl - PMHx: 21:00 autism; kidney stone; kl 21:02 Hypertensive disorder; kl - PSHx: 21:00 renal stent; kl - Immunization history:: Adult Immunizations up to date. - Social history:: Smoking status: Patient denies any tobacco usage or history of. - Family history:: not pertinent. ROS: 21:26 Constitutional: Negative for fever, chills, and weight loss, Eyes: Negative for injury, shellie pain, redness, and discharge, ENT: Negative for injury, pain, and discharge, Neck: Negative for injury, pain, and swelling, Cardiovascular: Negative for chest pain, palpitations, and edema, Respiratory: Negative for shortness of breath, cough, wheezing, and pleuritic chest pain, : Negative for injury, bleeding, discharge, and swelling, MS/Extremity: Negative for injury and deformity, Skin: Negative for injury, rash, and discoloration, Neuro: Negative for headache, weakness, numbness, tingling, and seizure, Psych: Negative for depression, anxiety, suicide ideation, homicidal ideation, and hallucinations, Allergy/Immunology: Negative for hives, rash, and allergies, Endocrine: Negative for neck swelling, polydipsia, polyuria, polyphagia, and marked weight changes. 21:26 Abdomen/GI: Positive for abdominal pain. 21:26 Back: Positive for flank pain, on the right. Exam: 21:26 Constitutional: This is a well developed, well nourished patient who is awake, alert, shellie and in no acute distress. Head/Face: Normocephalic, atraumatic. Eyes: Pupils equal round and reactive to light, extra-ocular motions intact. Lids and lashes normal. Conjunctiva and sclera are non-icteric and not injected. Cornea within normal limits. Periorbital areas with no swelling, redness, or edema. ENT: Nares patent. No nasal discharge, no septal abnormalities noted. Tympanic membranes are normal and external auditory canals are clear. Oropharynx with no redness, swelling, or masses, exudates, or evidence of obstruction, uvula midline. Mucous membranes moist. Neck: Trachea midline, no thyromegaly or masses palpated, and no cervical lymphadenopathy. Supple, full range of motion without nuchal rigidity, or vertebral point tenderness. No Meningismus. Chest/axilla: Normal chest wall appearance and motion. Nontender with no deformity. No lesions are appreciated. Cardiovascular: Regular rate and rhythm with a normal S1 and S2. No gallops, murmurs, or rubs. Normal PMI, no JVD. No pulse deficits. Respiratory: Lungs have equal breath sounds bilaterally, clear to auscultation and percussion. No rales, rhonchi or wheezes noted. No increased work of breathing, no retractions or nasal flaring. Male : Normal genitalia with no discharge or lesions. Skin: Warm, dry with normal turgor. Normal color with no rashes, no lesions, and no evidence of cellulitis. MS/ Extremity: Pulses equal, no cyanosis. Neurovascular intact. Full, normal range of motion. Neuro: Awake and alert, GCS 15, oriented to person, place, time, and situation. Cranial nerves II-XII grossly intact. Motor strength 5/5 in all extremities. Sensory grossly intact. Cerebellar exam normal. Normal gait. Psych: Awake, alert, with orientation to person, place and time. Behavior, mood, and affect are within normal limits. 21:26 Respiratory: the patient does not display signs of respiratory distress, Respirations: no acute changes, Breath sounds: are clear throughout, Respiratory rate: 20 09/07 06:38 ECG was reviewed by the Attending Physician. [facility] Vital Signs: 09/06 21:03 BP 113 / 72; Pulse 132; Temp 101.2(TE); Pulse Ox 97% ; kl 22:00 BP 119 / 79; Pulse 120; Resp 29; Pulse Ox 92% on 2 lpm NC; jb4 23:28 Weight 132 kg (M); jb4 09/07 00:00 BP 120 / 76; Pulse 116; Resp 19; Temp 98.1(TE); Pulse Ox 92% on 2 lpm NC; jb4 04:00 BP 107 / 67; Pulse 99; Resp 24; Temp 98.6(TE); Pulse Ox 91% on 2 lpm NC; jb4 MDM: 09/06 21:07 Patient medically screened. [facility] 21:33 Differential diagnosis: nephrolithiasis, pyelonephritis, UTI, diverticulitis, shellie pancreatitis, viral Infection, bacterial infection. Differential Diagnosis altered mental status. Data reviewed: vital signs, nurses notes, lab test result(s), EKG, radiologic studies, plain films. Consideration of Admission/Observation Patient was admitted/placed on observation. Escalation of care including admission/observation considered. I considered the following discharge prescriptions or medication management in the emergency department Medications were administered in the Emergency Department. See MAR. Independent interpretation of the following test(s) in the Emergency Department CT Scan: My interpretation is no ct stone. Historians other than the Patient: family. Care significantly affected by the following chronic conditions: Hypertension, autism. 09/07 06:37 Counseling: I had a detailed discussion with the patient and/or guardian regarding: the [facility] historical points, exam findings, and any diagnostic results supporting the discharge/admit diagnosis, the presence of at least one elevated blood pressure reading (>120/80) during this emergency department visit, lab results, radiology results, the need for further work-up and treatment in the hospital. 09/06 20:22 Order name: CBC with Diff [facility] 09/06 20:22 Order name: Comprehensive Metabolic Panel [facility] 09/06 21:04 Order name: Urine Microscopic Only la 09/06 21:04 Order name: Urine Culture la 09/06 21:04 Order name: Lactate w/ 2H reflex if indic. la1 09/06 21:04 Order name: Blood Culture Adult (2) la1 09/06 21:05 Order name: COVID-19/FLU A+B la1 09/06 21:14 Order name: Magnesium [facility] 09/06 21:14 Order name: NT PRO-BNP [facility] 09/06 21:14 Order name: PT-INR [facility] 09/06 21:14 Order name: Troponin HS [facility] 09/06 23:33 Order name: COVID-19/FLU A+B; Complete Time: 00:12 EDMS 09/06 21:05 Order name: Chest Single View XRAY la1 09/07 00:09 Order name: Protime (+INR); Complete Time: 00:12 EDMS 09/07 00:31 Order name: Basic Metabolic Panel; Complete Time: 00:36 EDMS 09/07 00:31 Order name: Liver (Hepatic) Function; Complete Time: 00:36 EDMS 09/07 00:31 Order name: Troponin High Sensitivity; Complete Time: 00:36 EDMS 09/07 00:31 Order name: NT PRO-BNP; Complete Time: 00:36 EDMS 09/07 00:31 Order name: Magnesium; Complete Time: 00:36 EDMS 09/07 00:32 Order name: Lactate w/ 2H reflex if indic.; Complete Time: 00:36 EDMS 09/07 00:49 Order name: CBC with Automated Diff EDMS 09/07 01:31 Order name: Manual Differential EDMS 09/07 05:02 Order name: Lactate Sepsis 2 HR Follow-up EDMS 09/07 06:41 Order name: Blood Culture EDMS 09/07 12:23 Order name: CBC with Automated Diff EDMS 09/07 12:57 Order name: Basic Metabolic Panel EDMS 09/07 12:57 Order name: Troponin High Sensitivity EDMS 09/07 16:39 Order name: Troponin High Sensitivity EDMS 09/06 20:22 Order name: IV Saline Lock; Complete Time: 03:29 shellie 09/06 21:14 Order name: EKG; Complete Time: 21:15 shellie 09/06 21:14 Order name: Cardiac monitoring; Complete Time: 21:20 shellie 09/06 21:14 Order name: Labs collected and sent; Complete Time: 03:29 shellie 09/06 21:14 Order name: O2 Per Protocol; Complete Time: 03:29 shellie 09/06 21:14 Order name: O2 Sat Monitoring; Complete Time: 03:29 shellie 09/06 21:22 Order name: IV Saline Lock - Large Bore; Complete Time: 02:50 shellie 09/06 21:36 Order name: Abdomen 1 View (KUB) XRAY [facility] 09/06 21:56 Order name: RAD; Complete Time: 22:35 EDMS 09/06 22:32 Order name: RAD; Complete Time: 22:35 EDMS EC:38 Rate is 100 beats/min. Rhythm is regular. QRS [place] is Normal. IA interval is normal. shellie QRS interval is normal. QT interval is normal. No Q waves. T waves are Normal. No ST changes noted. Clinical impression: Sinus tachycardia and No evidence of ischemia. Interpreted by me. Reviewed by me. Administered Medications: 09/06 23:54 Drug: Tylenol 1000 mg Route: PO; jb4 23:54 Drug: Cefepime 2 grams Route: IVPB; Rate: 200 ml/hr; Infused Over: 30 mins; Site: right jb4 forearm; 23:54 Drug: NS 0.9% (30 ml/kg) 30 ml/kg Route: IV; Rate: bolus; Site: right forearm; jb4 09/07 00:49 Drug: morphine 2 mg Route: IVP; Infused Over: 4 mins; Site: right forearm; lg3 Disposition Summary: 09/06/22 21:38 Hospitalization Ordered Hospitalization Status: Inpatient Admission shellie Condition: Stable shellie Problem: new shellie Symptoms: have improved shellie Bed/Room Type: Standard shellie Provider: Bassam Agustin(09/06/22 21:38) la1 Location: Telemetry/MedSurg (Inpatient)(09/07/22 17:35) ja1 Room Assignment: 411(09/07/22 17:35) ja Diagnosis - Pyelonephritis acute shellie - Chronic obstructive pyelonephritis shellie - Autistic disorder shellie - Obesity, unspecified shellie - Fever, unspecified shellie - Severe sepsis without septic shock shellie - Elevated white blood cell count shellie - Bandemia shellie - Unspecified kidney failure - insufficency shellie Forms: - Medication Reconciliation Form shellie - SBAR form shellie Signatures: Dispatcher [employer] EDJayda Quinn Kimberly RN Mark Arteaga MD MD cha Attema, Lee, ANNEALING TORCH OPERATOR-C ANNEALING TORCH OPERATOR-Cla1 Jana Islas, RN RN Manuel Sarmiento, RN RN jb4 Saul Garrett RN RN ja1 Loly Pathak RN RN lg3 Corrections: (The following items were deleted from the chart) 09/06 21:00 21:00 PMHx: Autism; nanci christine 21:38 21:38 SunnyAdam cha la1 09/07 00:54 09/06 21:38 Telemetry/MedSurg (Inpatient) [facility] cg 09/07 00:54 09/06 21:38 shellie cg 09/07 03:29 09/06 21:04 Urine Dipstick-Ancillary ordered. walter jb4 09/07 04:52 09/06 21:14 EKG - Nurse/Tech ordered. shellie jb4 09/07 17:33 00:54 [facility] ER HOLD cg bd 17:33 00:54 ERHOLD- cg bd 17:35 17:33 Telemetry/MedSurg (Inpatient) bd ja1 17:35 17:33 411 bd ja1
--- NOTE | 2022-09-06 21:55 | RAD REPORT ---
EXAM DESCRIPTION: RAD - Chest Single View - 09/06/2022 9:37 pm CLINICAL HISTORY: fever, recent surgery Chest pain. COMPARISON: No comparisons FINDINGS: Portable technique limits examination quality. The lungs are underinflated resulting in vascular crowding. The patient's chin obscures a portion the lung apices bilaterally. Cardiac size is mildly prominent.
--- NOTE | 2022-09-06 22:30 | RAD REPORT ---
EXAM DESCRIPTION: RAD - Abdomen 1 View (KUB) - 09/06/2022 10:20 pm CLINICAL HISTORY: ABD PAIN Pain COMPARISON: Urethrocystogrphy Retrograde dated 09/06/2022 FINDINGS: There are 2 double-J stents noted on the right. Staghorn type calculus presumably involves the left kidney. Ankylosing spondylitis of the lumbar spine is likely present.
[2022-09-06 23:33] LABS: SARS-COV-2 RT PCR NEGATIVE (NEGATIVE)
[2022-09-06] MEDS ORDERED: CEFEPIME 2 GM VIAL ONE (23:36)
[2022-09-06] MEDS ORDERED: ACETAMINOPHEN 500 MG TAB ONE (23:36)
[2022-09-06] MEDS ORDERED: NA CHLORIDE 0.9% 1,000 ML ONE (23:36)
[2022-09-06] MEDS ORDERED: NA CHLORIDE 0.9% 100 ML ONE (23:36)
[2022-09-07 00:09] LABS: Protime INR 1.21
[2022-09-07 00:21] LABS: Bilirubin Direct 0.1 mg/dL (0-0.2); Bilirubin Total 0.3 mg/dL (0.2-1.0); Magnesium 1.7 mg/dL (1.6-2.4); Potassium 3.9 mmol/L (3.5-5.1); Protein, Total 6.7 g/dL (6.4-8.2)
[2022-09-07 00:31] LABS: Troponin High Sensitivity 165.3 pg/mL (<58.9)
[2022-09-07 00:38] LABS: Absolute Lymphocytes (CBC) 0.5 K/uL (0.7-4.9); Hematocrit 46.4 % (39.6-49.0); Lymphocytes % 2.3 % (15.3-44.8); MCV 85.5 fL (80-100); MPV 8.9 fL (7.6-11.3); RBC Red Blood Cell Count 5.43 M/uL (4.33-5.43)
[2022-09-07] MEDS ORDERED: MORPHINE 2 MG/ML SYR ONE (00:44)
[2022-09-07 01:30] LABS: Blood Morphology Comment NOT SEEN (NOT SEEN); Platelet Estimate ADEQ
[2022-09-07] MEDS ORDERED: NA CHLORIDE 0.9% 1,000 ML ONE (02:08)
--- NOTE | 2022-09-07 02:09 | P.HP ---
Certification for Inpatient Patient admitted to: Inpatient With expected LOS: >2 Midnights Patient will require the following post-hospital care: None Practitioner: I am a practitioner with admitting privileges, knowledge of patient current condition, hospital course, and medical plan of care. Services: Services provided to patient in accordance with Admission requirements found in Title 42 Section 412.3 of the Code of Federal Regulations <Dequan Flower - Last Filed: 09/07/22 02:07> Patient History Date of Service: 09/07/22 Reason for admission: Sepsis, pyelonephritis History of Present Illness: 47-year-old male with history of autism, hypertension, seizure disorder had a procedure yesterday on 09/06/[address] Joyner with attempted right ureteral stent extraction. Patient has had a right ureteral stent in place for the last 3 years. During the procedure he was noted to have retained right ureteral stent, left staghorn renal calculus, encrusted right ureteral stent not removable, meatal stenosis, urethral stricture. The right-sided stent was unable to be removed during the procedure, a right 6 Albanian by 26 cm new ureteral stent was placed alongside the retained ureteral stent, patient also had meatal dilation using sounds intraoperatively. Patient was given intraoperative antibiotics and subsequently discharged home with prescription for Augmentin patient is nonverbal, mother reports that she noticed patient was breathing fast and shallow and checked his temperature, found to be febrile to 102 and brought him into the emergency department for evaluation. Patient was noted to be febrile, tachycardic upon arrival to the emergency department he was given 30 cc/kg IV fluid bolus Labs were significant for marked leukocytosis, bandemia lactic acid 2.1 moderately elevated high-sensitivity troponin. Case was discussed with urology, patient was started on cefepime in the emergency department. Blood cultures were obtained, also noted that patient received intraoperative urine culture during his procedure yesterday. We will need to follow-up for these results. Patient needs criteria for severe sepsis, will admit for further evaluation and management. - Past Medical/Surgical History -: Autism -: Seizure disorder -: Hypertension -: Previous ureteral stent Psychosocial/ Personal History: Patient lives at home with his mother - Family History Family History: Reviewed- Non-Contributory - Social History Smoking Status: Never smoker Alcohol use: No CD- Drugs: No Caffeine use: No Place of Residence: Home <Dequan Flower - Last Filed: 09/07/22 02:07> Date of Service: 09/07/22 <Bassam Agustin - Last Filed: 09/07/22 20:43> Allergies Sulfa (Sulfonamide Antibiotics) Adverse Reaction (Verified 09/06/22 08:02) Nausea/Vomiting tramadol Adverse Reaction (Verified 09/06/22 08:02) very depressed, lethargic Home Medications: LORazepam [Ativan*] 2 mg PO DAILY WITH BREAKFAST 07/22/15 LORazepam [Ativan*] 4 mg PO BEDTIME 07/22/15 Trazodone [Desyrel*] 225 mg PO BEDTIME 07/22/15 Buspirone HCl [Buspar] 20 mg PO BEDTIME 03/30/22 Acetaminophen with Codeine [Acetaminophen-Cod #4 Tablet] 1 each PO BIDP PRN 08/31/22 Cenobamate [Xcopri] 200 mg PO DAILY 08/31/22 Duloxetine HCl [Cymbalta] 2 cap PO BEDTIME 08/31/22 Famotidine [Pepcid] 40 mg PO BEDTIME 08/31/22 L.acidoph,Paracasei, B.lactis [Probiotic] 6 each PO DAILY 08/31/22 Multivitamin 1 each PO DAILY 08/31/22 [place]-3 Fatty Acids [[place]-3] 2 cap PO DAILY 08/31/22 Quetiapine Fumarate [Seroquel] 2 tab PO BEDTIME 08/31/22 Tamsulosin HCl 0.4 mg PO DAILY 08/31/22 hydrOXYzine HCL [Atarax] 100 mg PO DAILY 08/31/22 hydroCHLOROthiazide [Hydrochlorothiazide] 25 mg PO BEDTIME 08/31/22 Amox/Clavulanate [Augmentin 875-125 Tab] 1 each PO BID #14 tab 09/06/22 Review of Systems is unable to be obtained General: Fever <Dequan Flower - Last Filed: 09/07/22 02:07> Physical Examination - Physical Exam General: Alert, In no apparent distress, Other (Nonverbal at baseline) HEENT: Atraumatic, PERRLA, Mucous membr. moist/pink, EOMI, Sclerae nonicteric Neck: Supple, 2+ carotid pulse no bruit, No LAD, Without JVD or thyroid abnormality Respiratory: Clear to auscultation bilaterally, Normal air movement Cardiovascular: Regular rate/rhythm, Normal S1 S2 Capillary refill: <2 Seconds Gastrointestinal: Normal bowel sounds, No tenderness Musculoskeletal: No tenderness Integumentary: No rashes Neurological: Normal strength at 5/5 x4 extr, Normal tone - Studies Laboratory Data (last 24 hrs) 09/06/22 23:48: PT 13.3 H, INR 1.21 09/06/22 23:48: Sodium 136, Potassium 3.9, BUN 21 H, Creatinine 1.37 H, Glucose 126 H, Magnesium 1.7, Total Bilirubin 0.3, AST 42 H, ALT 55, Alkaline Phosphatase 104 09/06/22 23:48: WBC 20.20 H*, Hgb 15.4, Hct 46.4, Plt Count 197 09/06/22 20:22: Sodium Cancelled, Potassium Cancelled, BUN Cancelled, Creatinine Cancelled, Glucose Cancelled, Total Bilirubin Cancelled, AST Cancelled, ALT Cancelled, Alkaline Phosphatase Cancelled <Dequan Flower - Last Filed: 09/07/22 02:07> - Studies Laboratory Data (last 24 hrs) 09/06/22 23:48: PT 13.3 H, INR 1.21 09/06/22 23:48: Sodium 136, Potassium 3.9, BUN 21 H, Creatinine 1.37 H, Glucose 126 H, Magnesium 1.7, Total Bilirubin 0.3, AST 42 H, ALT 55, Alkaline Phosphatase 104 09/06/22 23:48: WBC 20.20 H*, Hgb 15.4, Hct 46.4, Plt Count 197 09/06/22 20:22: Sodium Cancelled, Potassium Cancelled, BUN Cancelled, Creatinine Cancelled, Glucose Cancelled, Total Bilirubin Cancelled, AST Cancelled, ALT Cancelled, Alkaline Phosphatase Cancelled Microbiology Data (last 24 hrs): 09/06/22 22:40 Blood - Blood Anaerobic Blood Culture - Final 09/06/22 22:55 Blood - Blood Anaerobic Blood Culture - Final <Bassam Agustin - Last Filed: 09/07/22 20:43> Assessment and Plan - Plan Assessment: Severe sepsis secondary to pyelonephritis with retained right ureteral stent S/P new right-sided ureteral stent placement 09/06 Elevated troponin Seizure disorder Hypertension Autism-nonverbal at baseline Plan: Severe sepsis secondary to pyelonephritis with retained right ureteral stent S/P new right-sided ureteral stent placement 09/06 Seen by urology in ED, continue cefepime. Follow intraoperative urine cultures from procedure on 09/06. Patient received 30 cc/kg IV fluid bolus, initial lactate 2.1 will trend. Blood cultures obtained. Elevated troponin Suspect demand ischemia, cardiology consulted, echocardiogram ordered. Systemic anticoagulation not ordered given recent surgical procedure, hematuria, suspected demand ischemia related to sepsis. Seizure disorder continue home medications Autism-nonverbal at baseline Noted, at baseline per mother Hypertension Hold oral antihypertensive agents in the setting of sepsis, restart when appropriate. DVT PPX: Lovenox Code status:Full Discharge Plan: Home Plan to discharge in: Greater than 2 days - Advance Directives Does patient have a Living Will: No Does patient have a Durable POA for Healthcare: No - Code Status/Comfort Care Code Status Assessed: Yes (Full code) Critical Care: No Time Spent Managing Pts Care (In Minutes): 70 <Dequan Flower - Last Filed: 09/07/22 02:07> - Plan Patient seen and examined on rounds at ~noon Mother at bedside, states he seems to be slightly improved, eating well, but groaning / making more noises than typical for him. Still seems to understand what is being said. Voiding in diaper Patient with some pain/tenderness of R abdomen continue empiric antibiotics - cefepime monitor closely, f/u PVR urology following f/u cultures elevated troponin most likely demand ischemia in setting of sepsis cardiology consulted close monitoring of fluid status <Bassam Agustin - Last Filed: 09/07/22 20:43>
[2022-09-07] MEDS ORDERED: ONDANSETRON 4 MG/2 ML VIAL IV PRN (04:57)
[2022-09-07] MEDS: Ringers Lactate 1,000 ML IV SCH ×2 (04:57→20:26)
[2022-09-07] MEDS ORDERED: Ringers Lactate 1,000 ML IV ONE (06:11)
[2022-09-07 06:44] VITALS: BMI 45.6
--- NOTE | 2022-09-07 08:20 | P.PN ---
Date of Service: 09/07/22 47-year-old gentleman with history of seizure disorder and autism s/p retained ureteral stent following right PCNL over a year ago with Dr. Ferris, now s/p ureteroscopy and laser lithotripsy attempted stent extraction, failed, with purulent urine drained from the kidney, culture pending, and severe sepsis with signs of shock and CHF/cardiac compromise. Patient persistently tachycardic and tachypneic this morning Creatinine 1.37, troponin I 1.65, proBNP 1040 Voiding and wearing a depends undergarment, but uncertain how successfully. Appreciate cardiology consultation and management. -Recommend bladder scan random postvoid residual assessment, and as long as <200 cc, will continue to observe. If > 300 cc, repeat bladder scan 2 to 3 hours later, and if > 400 cc, place urethral Campuzano catheter. Of note, patient generally combative to attempts at invasive medical procedures and may require ketamine or sedation if urethral Campuzano catheter required. May instead consider a condom catheter to measure and maintain I's and O's. -Continue antimicrobial prophylaxis. Cefepime reasonable choice given the suspicion for nosocomial organisms. -Continue IV fluid resuscitation judiciously given signs of CHF.
[2022-09-07] MEDS ORDERED: CEFEPIME 2 GM VIAL ONE (08:51)
[2022-09-07] MEDS ORDERED: NA CHLORIDE 0.9% 100 ML ONE (08:52)
[2022-09-07] MEDS ORDERED: ENOXAPARIN 40 MG/0.4 ML SQ ONE (08:52)
[2022-09-07] MEDS: CEFEPIME 2 GM in NA CHLORIDE 0.9% 100 ML IV SCH ×2 (09:00→20:31)
[2022-09-07] MEDS: ENOXAPARIN 40 MG/0.4 ML SQ SCH (09:00)
[2022-09-07] MEDS: ACETAMINOPHEN 500 MG TAB PO PRN (09:10)
[2022-09-07] MEDS ORDERED: ACETAMINOPHEN 500 MG TAB ONE (09:11)
[2022-09-07 12:19] LABS: Absolute Lymphocytes (CBC) 0.5 K/uL (0.7-4.9); Hematocrit 41.4 % (39.6-49.0); Lymphocytes % 3.3 % (15.3-44.8); MPV 8.2 fL (7.6-11.3); RBC Red Blood Cell Count 4.87 M/uL (4.33-5.43)
[2022-09-07 12:57] LABS: Potassium 3.8 mmol/L (3.5-5.1); Troponin High Sensitivity 109.8 pg/mL (<58.9)
--- NOTE | 2022-09-07 12:58 | EKG ---
Test Date: 2022-09-07 Test Time: 06:34:12 Buckle Sorter: NEIL MEASUREMENT RESULTS: Intervals: Rate: 100 GA: 168 QRSD: 96 QT: 384 QTc: 495 [place]: P: 18 GA: 168 QRS: 21 T: 88 INTERPRETIVE STATEMENTS: Normal sinus rhythm Cannot rule out Anterior infarct, age undetermined Abnormal ECG Compared to ECG 09/06/2022 07:28:38 Myocardial infarct finding now present T-wave abnormality no longer present Electronically Signed On 09-07-22 12:56:48 HEALTH INSURANCE ADJUSTER by Chaitanya Gibson
--- NOTE | 2022-09-07 13:50 | ECHO ---
HEIGHT: 5 ft 7 in WEIGHT: 291 lb 0.163 oz DATE OF STUDY: 09/07/[address]: Dequan Flower NP 2-DIMENSIONAL: YES M.MODE: YES DOPPLER: YES COLOR FLOW: YES TDS: NO PORTABLE: YES DEFINITY: NO BUBBLE STUDY: NO DIAGNOSIS: ELEVATED TROPONIN CARDIAC HISTORY: CATHERIZATION: SURGERY: PROSTHETIC VALVE: PACEMAKER: MEASUREMENTS (cm) DIASTOLIC (NORMALS) SYSTOLIC (NORMALS) IVSd 1.1 (0.6-1.2) LA Diam (1.9-4.0) LVEF 65% LVIDd 4.8 (3.5-5.7) LVIDs 3.5 (2.0-3.5) %FS 27% LVPWd 1.2 (0.6-1.2) Ao Diam 3.7 (2.0-3.7) 2 DIMENSIONAL ASSESSMENT: RIGHT ATRIUM: NORMAL LEFT ATRIUM: NORMAL RIGHT VENTRICLE: NORMAL LEFT VENTRICLE: NORMAL TRICUSPID VALVE: NORMAL MITRAL VALVE: NORMAL PULMONIC VALVE: NORMAL AORTIC VALVE: NORMAL PERICARDIAL EFFUSION: NONE AORTIC ROOT: NORMAL LEFT VENTRICULAR WALL MOTION: NORMAL DOPPLER/COLOR FLOW: NORMAL COMMENTS: 1. NORMAL LEFT VENTRICULAR EJECTION FRACTION 60-65%. 2. NORMAL WALL MOTION. TECHNOLOGIST: Pollo HERMOSILLO
[2022-09-07] MEDS ORDERED: HOME MED 1 EA UNK (Quetiapine Fumarate [Seroquel] 200 MG Tablet) PO SCH (21:00)
[2022-09-07] MEDS ORDERED: LORAZEPAM 2 MG PO SCH (21:00)
[2022-09-07] MEDS ORDERED: HOME MED 1 EA UNK (Famotidine [Pepcid] 40 MG Tablet) PO SCH (21:00)
[2022-09-07] MEDS ORDERED: HOME MED 1 EA UNK (Buspirone Hcl [Buspar] 10 MG Tablet) PO SCH (21:00)
[2022-09-07] MEDS: TRAZODONE 150 MG TAB PO SCH (21:00)
--- NOTE | 2022-09-07 21:12 | P.PN ---
Subjective Date of Service: 09/07/22 Chief Complaint: Sepsis, pyelonephritis Subjective: No new changes (Still somewhat tachypneic per his mother with complaints of some right flank pain) Physical Examination - Vital Signs Temperature: 98.2 F Blood Pressure: 136/81 Pulse: 113 Respirations: 28 Pulse Ox (%): 93 - Physical Exam General: Alert HEENT: Mucous membr. moist/pink Respiratory: Other (Mild tachypnea, but difficult to appreciate relative to his mental status baseline breathing and communication) Gastrointestinal: Soft and benign - Studies Laboratory Data (last 24 hrs) 09/06/22 23:48: PT 13.3 H, INR 1.21 09/06/22 23:48: Sodium 136, Potassium 3.9, BUN 21 H, Creatinine 1.37 H, Glucose 126 H, Magnesium 1.7, Total Bilirubin 0.3, AST 42 H, ALT 55, Alkaline Phosphatase 104 09/06/22 23:48: WBC 20.20 H*, Hgb 15.4, Hct 46.4, Plt Count 197 09/06/22 20:22: Sodium Cancelled, Potassium Cancelled, BUN Cancelled, Creatinine Cancelled, Glucose Cancelled, Total Bilirubin Cancelled, AST Cancelled, ALT Cancelled, Alkaline Phosphatase Cancelled Microbiology Data (last 24 hrs): 09/06/22 22:40 Blood - Blood Anaerobic Blood Culture - Final 09/06/22 22:55 Blood - Blood Anaerobic Blood Culture - Final Assessment And Plan - Current Problems (Diagnosis) (1) Sepsis Current Visit: Yes Status: Acute Qualifiers: Sepsis type: sepsis due to unspecified organism Sepsis acute organ dysfunction status: with acute organ dysfunction (2) Retained ureteral stent Current Visit: No Status: Chronic (3) Right nephrolithiasis Current Visit: No Status: Chronic - Plan 47-year-old gentleman with autism and seizure disorder, poorly communicative with retained right calcified ureteral stent resistant to ureteroscopic extraction but complicated by development of suspected pyelonephritic sepsis associated with purulent renal drainage discovered intraoperatively with attempted stent extraction postop day 1 with CHF/mild cardiac compromise. -Appreciate cardiology consultation -Echocardiogram reviewed with normal wall motion and EF 60 to 65% -TroponinI declining from 1 65-109.8 now 93.1 as of 3:49 PM with creatinine 1.17 from 1.37 -Continue cefepime -Follow-up renal aspirate urine culture sent intraoperatively yesterday -Tylenol with codeine for pain management -Check bladder scan PVR to ensure adequate emptying given the large volume fluid resuscitation underway
[2022-09-07] MEDS: QUETIAPINE 100MG TAB PO SCH (21:18)
[2022-09-07] MEDS: FAMOTIDINE 20 MG TAB PO SCH (21:18)
[2022-09-07] MEDS: LORAZEPAM 1 MG TABLET PO SCH (21:19)
[2022-09-07] MEDS: BUSPIRONE HCL 5 MG TABLET PO SCH (21:19)
[2022-09-08 06:56] LABS: Absolute Lymphocytes (CBC) 0.9 K/uL (0.7-4.9); Hematocrit 40.8 % (39.6-49.0); Lymphocytes % 7.7 % (15.3-44.8); MCV 85.1 fL (80-100); MPV 8.6 fL (7.6-11.3); RBC Red Blood Cell Count 4.79 M/uL (4.33-5.43)
[2022-09-08 07:11] LABS: Potassium 3.8 mmol/L (3.5-5.1)
--- NOTE | 2022-09-08 07:17 | P.PN ---
Date of Service: 09/08/22 Subjective: improving eating well afebrile overnight slight tachycardia mom at bedside reports still having some shallow / fast breathing, points to right abdomen when asked where he has pain ROS: 10 point ROS as noted above, otherwise negative Physical exam GEN: Alert, nonverbal but grunts and motions HEENT: Normal conjunctiva, sclera anicteric CV: intermittent sinus tachycardia, trace b/l edema Pulm: shallow respirations, mild tachypnea; on room air ABD: Soft, Right sided tenderness Neuro: moves all extremities Problem List Severe sepsis secondary to pyelonephritis with retained right ureteral stent S/P new right-sided ureteral stent placement 09/06 Elevated troponin, suspected demand ischemia Seizure disorder Hypertension Autism-nonverbal at baseline Severe sepsis secondary to pyelonephritis with retained right ureteral stent S/P new right-sided ureteral stent placement 09/06 concern for pyelonephritis recent instrumentation f/u urine culture from 09/06 continue empiric antibiotics f/u blood cultures fever curve improved urology consulted Elevated troponin Suspect demand ischemia, cardiology consulted, echocardiogram ordered. Seizure disorder continue home medications Autism-nonverbal at baseline Noted, at baseline per mother Hypertension Hold oral antihypertensive agents in the setting of sepsis, restart when appropriate. VTE: Lovenox Code: Full Dispo: home, ~2 days
[2022-09-08] MEDS ORDERED: LORAZEPAM 2 MG PO SCH (08:00)
[2022-09-08] MEDS: Ringers Lactate 1,000 ML IV SCH ×3 (08:13→20:49)
[2022-09-08] MEDS: LORAZEPAM 1 MG TABLET PO SCH ×2 (08:15→20:40)
[2022-09-08] MEDS: CEFEPIME 2 GM in NA CHLORIDE 0.9% 100 ML IV SCH ×2 (08:15→20:46)
[2022-09-08] MEDS: TAMSULOSIN 0.4 MG SR CAP PO SCH (08:16)
[2022-09-08] MEDS: HOME MED 1 EA UNK (L.Acidoph,Paracasei, B.Lactis [Probiotic] Capsule) PO SCH (08:17)
[2022-09-08] MEDS: hydrOXYzine HCL 25 MG TAB PO SCH (08:17)
[2022-09-08] MEDS: CENOBAMATE 200 MG PO SCH (08:19)
[2022-09-08] MEDS: ENOXAPARIN 40 MG/0.4 ML SQ SCH (08:19)
[2022-09-08] MEDS ORDERED: HOME MED 1 EA UNK (Hydroxyzine Hcl [Atarax] 50 MG Tablet) PO SCH (09:00)
[2022-09-08 15:45] LABS: Urine Bacteria None Seen /HPF (<20); Urine Crystals Unidentified Moderate /HPF (None Seen); Urine RBC >50 /HPF (None Seen); Urine WBC Clump Moderate /HPF (None Seen)
[2022-09-08] MEDS: BUSPIRONE HCL 5 MG TABLET PO SCH (20:39)
[2022-09-08] MEDS: QUETIAPINE 100MG TAB PO SCH (20:39)
[2022-09-08] MEDS: FAMOTIDINE 20 MG TAB PO SCH (20:40)
[2022-09-08] MEDS: TRAZODONE 150 MG TAB PO SCH (20:41)
[2022-09-08] MEDS: ACETAMINOPHEN 500 MG TAB PO PRN (20:45)
--- NOTE | 2022-09-08 20:55 | P.PN ---
Date of Service: 09/08/22 47-year-old gentleman with history of seizure disorder and autism s/p retained ureteral stent following right PCNL over a year ago with Dr. Ferris, now s/p ureteroscopy and laser lithotripsy attempted stent extraction, failed, with purulent urine drained from the kidney, culture now <10K mixed ildefonso, and severe sepsis with signs of shock and CHF/cardiac compromise improving. Patient responded appropriately to a query about how he was feeling to suggest he was feeling "good", which is outside of his usual responsiveness. Examination: Baseline audible and breathing status with potential mild tachypnea still present according to mother Abdomen soft, nontender Appreciate care of medical team and cardiology
--- NOTE | 2022-09-08 23:46 | CON ---
Date of Consultation: 09/08/2022 Reason For Consultation: Elevated troponin. History Of Present Illness: A 47-year-old male, with history of hypertension, autism, seizure disord er, presented due to significant acute pyelonephritis and sepsis. Troponin was checked throughout an d was slightly elevated. Patient denied having any chest pain. Echo was done. EF was normal. No w all motion abnormalities. Past Medical History: As outlined above in the HPI. Medications: Refer reconciliation sheet for detailed list. Allergies: SULFA. Family History: No premature coronary artery disease or cancer. Social History: He does not smoke or drink. Does not use any drugs. Review of Systems: All systems reviewed and they were negative except as mentioned in HPI. Physical Examination: Vital Signs: Reviewed. Head and Neck: Pupils are equal, reactive to light. Intact eye movements. No JVD. No cervical lym phadenopathy. Neck is supple. Thyroid is not enlarged. Lungs: Clear to auscultation bilaterally. No rhonchi, wheezing, or crackles. No accessory muscle u se. Heart: Regular rate and rhythm. No extra sounds. Abdomen: Soft, nontender. Bowel sounds positive. No organomegaly. No masses or hernia. No rigidi ty or rebound. Extremities: No edema, clubbing, or cyanosis. Intact pulses. Skin: No rashes. Neurologic: Alert, awake, oriented x3. No acute focal deficits appreciated. Investigations: Troponin 165 and then 93. BUN is 15, creatinine 0.91. An echo is with normal eject ion fraction and no wall motion abnormalities. Assessment And Plan: 1.Elevated troponin. This is demand ischemia, normal EF on echo, normal wall motion and has no symp toms. Continue to monitor outpatient stress test, might be warranted. 2.Acute renal failure due to sepsis and this is resolved. Cardiology will sign off on this case. SR/MODL Voice ID: [id number] Report ID: [id number]
[2022-09-09 04:13] LABS: Absolute Lymphocytes (CBC) 1.2 K/uL (0.7-4.9); Hematocrit 40.8 % (39.6-49.0); MCV 85.7 fL (80-100); MPV 8.8 fL (7.6-11.3); RBC Red Blood Cell Count 4.76 M/uL (4.33-5.43)
[2022-09-09 04:26] LABS: Potassium 3.8 mmol/L (3.5-5.1)
[2022-09-09] MEDS: Ringers Lactate 1,000 ML IV SCH (05:41)
[2022-09-09] MEDS: ENOXAPARIN 40 MG/0.4 ML SQ SCH (08:49)
[2022-09-09] MEDS: LORAZEPAM 1 MG TABLET PO SCH ×2 (08:49→21:19)
[2022-09-09] MEDS: hydrOXYzine HCL 25 MG TAB PO SCH (08:49)
[2022-09-09] MEDS: TAMSULOSIN 0.4 MG SR CAP PO SCH (08:49)
[2022-09-09] MEDS: CENOBAMATE 200 MG PO SCH (08:50)
[2022-09-09] MEDS: HOME MED 1 EA UNK (L.Acidoph,Paracasei, B.Lactis [Probiotic] Capsule) PO SCH (08:51)
[2022-09-09] MEDS: CEFEPIME 2 GM in NA CHLORIDE 0.9% 100 ML IV SCH ×3 (08:51→21:20)
--- NOTE | 2022-09-09 09:06 | RAD REPORT ---
EXAM DESCRIPTION: RAD - Chest Single View - 09/09/2022 8:36 am CLINICAL HISTORY: hypoxia, uti, s/p fluids COMPARISON: Abdomen 1 View (KUB) dated 09/06/2022; Chest Single View dated 09/06/2022 FINDINGS: Lines: None. Lungs: Low lung volumes accentuates the pulmonary vasculature. The low lung volumes and portable tech nique also limit evaluation for acute parenchymal disease. In addition, the chin overlies the lung ap ices. Pleural: No significant pleural effusions or pneumothorax. Cardiac: The heart size is within normal limits. Mediastinum: Within normal limits. Bones: No acute fractures. Other: None IMPRESSION: Low lung volumes without definite acute process. The appearance is similar to 09/06/2022 .
--- NOTE | 2022-09-09 20:53 | P.PN ---
Date of Service: 09/09/22 Subjective: improving eating well afebrile right abdomen pain slight tachypnea / shallow respirations ROS: 10 point ROS unable to fully be obtained - pt nonverbal Physical exam GEN: Alert, nonverbal but grunts and motions HEENT: Normal conjunctiva, sclera anicteric CV: intermittent sinus tachycardia, no edema Pulm: shallow respirations, mild tachypnea; on room air ABD: Soft, Right sided tenderness Neuro: moves all extremities Problem List Severe sepsis secondary to pyelonephritis with retained right ureteral stent S/P new right-sided ureteral stent placement 09/06 Elevated troponin, suspected demand ischemia Seizure disorder Hypertension Autism-nonverbal at baseline Severe sepsis secondary to pyelonephritis with retained right ureteral stent S/P new right-sided ureteral stent placement 09/06 concern for pyelonephritis recent instrumentation f/u urine culture from 09/06 - mixed ildefonso leukocytosis improving, afebrile continue empiric antibiotics fever curve improved urology consulted renal U/S ordered QTc borderline / prolonged on initial EKG, on multiple psych meds that have risk for increasing QTc, avoid FQNs if possible to minimize risk of further prolongat ion Elevated troponin cardiology consulted - demand ischemia, signed off, echocardiogram ok Seizure disorder continue home medications Autism-nonverbal at baseline Noted, at baseline per mother Hypertension Hold oral antihypertensive agents in the setting of sepsis, restart when appropriate. VTE: Lovenox Code: Full Dispo: home, ~1-2 days
[2022-09-09] MEDS: TRAZODONE 150 MG TAB PO SCH (21:00)
[2022-09-09] MEDS: FAMOTIDINE 20 MG TAB PO SCH (21:19)
[2022-09-09] MEDS: BUSPIRONE HCL 5 MG TABLET PO SCH (21:19)
[2022-09-09] MEDS: QUETIAPINE 100MG TAB PO SCH (21:20)
--- NOTE | 2022-09-09 21:40 | RAD REPORT ---
EXAM DESCRIPTION: US - Renal Ultrasound-Complete - 09/09/2022 8:55 pm CLINICAL HISTORY: eval b/l ureters, hydro / kidneys COMPARISON: Chest Single View dated 09/09/2022 TECHNIQUE: Sonographic grayscale and color flow images of the kidneys and bladder were obtained. FINDINGS: Exam is technically limited given limited patient mobility and poor penetration. Bilateral hydronephrosis present, appears to be at least moderate in degree. Bilateral cortical thinn ing suggesting medical renal disease. The right kidney measures 12.7 centimeter in length. Multiple cortical cysts present, the largest see n in the midpole measuring 2.1 centimeter. Some of the cystic regions could relate to the ongoing hyd ronephrosis. Echogenic 1.1 centimeter focus with twinkle artifact at the mid pole suggestive of a moses culus. The left kidney measures measures 10.7 centimeter in length. No echogenic calculi. Multiple cortical cyst currently, the largest measuring 2.7 centimeter. The urinary bladder is suboptimally distended with distal aspect of a left ureteral stent present wit hin the bladder. IMPRESSION: Technically limited exam, as above revealing least moderate bilateral hydronephrosis. Bilateral cortical thinning suggestive of medical renal disease. Bilateral renal cortical cysts are p resent. Nonobstructing right renal midpole 1.1 centimeter calculus.
[2022-09-10 04:46] LABS: Absolute Lymphocytes (CBC) 1.6 K/uL (0.7-4.9); Hematocrit 40.6 % (39.6-49.0); Lymphocytes % 16.4 % (15.3-44.8); MCV 85.4 fL (80-100); RBC Red Blood Cell Count 4.75 M/uL (4.33-5.43)
[2022-09-10 05:01] LABS: Potassium 3.8 mmol/L (3.5-5.1)
[2022-09-10] MEDS ORDERED: NA CHLORIDE 0.9% 100 ML ONE (08:23)
[2022-09-10] MEDS: hydrOXYzine HCL 25 MG TAB PO SCH (08:40)
[2022-09-10] MEDS: TAMSULOSIN 0.4 MG SR CAP PO SCH (08:40)
[2022-09-10] MEDS: CENOBAMATE 200 MG PO SCH (08:41)
[2022-09-10] MEDS: LORAZEPAM 1 MG TABLET PO SCH ×2 (08:41→21:48)
[2022-09-10] MEDS: ENOXAPARIN 40 MG/0.4 ML SQ SCH (08:41)
[2022-09-10] MEDS: HOME MED 1 EA UNK (L.Acidoph,Paracasei, B.Lactis [Probiotic] Capsule) PO SCH (08:42)
[2022-09-10] MEDS: CEFEPIME 2 GM in NA CHLORIDE 0.9% 100 ML IV SCH ×2 (08:42→21:52)
[2022-09-10] MEDS ORDERED: CODEINE 30MG/APAP 300MG TAB PO SCH (09:00)
--- NOTE | 2022-09-10 16:57 | P.PN ---
Date of Service: 09/10/22 Subjective: improving mother states he seems to be acting more like his normal but continues with frequent grunting shallow respirations, states pain in r abd, neck getting up to toilet, feels he is emptying bladder ROS: 10 point ROS unable to fully be obtained - pt nonverbal Physical exam GEN: Alert, nonverbal but grunts and motions HEENT: Normal conjunctiva, sclera anicteric CV: intermittent sinus tachycardia, no edema Pulm: shallow respirations, mild tachypnea; on 3L NC ABD: Soft, right sided tenderness Neuro: moves all extremities Problem List Severe sepsis secondary to pyelonephritis with retained right ureteral stent S/P new right-sided ureteral stent placement 09/06 Elevated troponin, suspected demand ischemia Seizure disorder Hypertension Autism-nonverbal at baseline Severe sepsis secondary to pyelonephritis with retained right ureteral stent S/P new right-sided ureteral stent placement 09/06 concern for pyelonephritis recent instrumentation f/u urine culture from 09/06 - mixed ildefonso leukocytosis improving, afebrile continue empiric antibiotics fever curve improved urology consulted renal U/S ordered - b/l hydronephrosis QTc borderline / prolonged on initial EKG, on multiple psych meds that have risk for increasing QTc, avoid FQNs if possible to minimize risk of further prolongation Hypoxia unclear if just during sleep; suspect some component of SKYE will check room air sats appears to have shallow respirations, uncomfortable, states he is in pain; likely prohibiting him from deeper inspiration incentive spirometer repeat CXR restarted home pain medication regimen, suspect this will help Elevated troponin cardiology consulted - demand ischemia, signed off, echocardiogram ok Seizure disorder continue home medications Autism-nonverbal at baseline Noted, at baseline per mother Hypertension Hold oral antihypertensive agents in the setting of sepsis, restart when appropriate. VTE: Lovenox Code: Full Dispo: home, ~1-2 days
[2022-09-10] MEDS: TRAZODONE 150 MG TAB PO SCH (21:00)
[2022-09-10] MEDS: CODEINE 30MG/APAP 300MG TAB PO SCH (21:48)
[2022-09-10] MEDS: BUSPIRONE HCL 5 MG TABLET PO SCH (21:49)
[2022-09-10] MEDS: QUETIAPINE 100MG TAB PO SCH (21:50)
[2022-09-10] MEDS: hydroCHLOROthiazide 25 MG TAB PO SCH (21:50)
[2022-09-10] MEDS: FAMOTIDINE 20 MG TAB PO SCH (21:50)
[2022-09-11] MEDS ORDERED: FUROSEMIDE 20 MG/ 2ML VIAL IV ONE (07:15)
[2022-09-11] MEDS: ENOXAPARIN 40 MG/0.4 ML SQ SCH (08:22)
[2022-09-11] MEDS: CODEINE 30MG/APAP 300MG TAB PO SCH ×3 (08:23→22:09)
[2022-09-11] MEDS: TAMSULOSIN 0.4 MG SR CAP PO SCH (08:23)
[2022-09-11] MEDS: hydrOXYzine HCL 25 MG TAB PO SCH (08:23)
[2022-09-11] MEDS: LORAZEPAM 1 MG TABLET PO SCH ×2 (08:24→22:08)
[2022-09-11] MEDS: CEFEPIME 2 GM in NA CHLORIDE 0.9% 100 ML IV SCH ×2 (08:24→22:13)
[2022-09-11] MEDS: CENOBAMATE 200 MG PO SCH (08:25)
[2022-09-11] MEDS: HOME MED 1 EA UNK (L.Acidoph,Paracasei, B.Lactis [Probiotic] Capsule) PO SCH (08:25)
--- NOTE | 2022-09-11 09:13 | RAD REPORT ---
EXAM DESCRIPTION: Vlad Single View09/11/2022 6:37 am CLINICAL HISTORY: Hypoxia COMPARISON: August 20162022 FINDINGS: Lungs are mildly hazy. The patient is in a poor inspiration. Heart is probably borderline enlarged IMPRESSION: Lungs are mildly hazy which may indicate mild pulmonary edema
--- NOTE | 2022-09-11 13:20 | P.PN ---
Date of Service: 09/11/22 Subjective: reportedly 83% on room air, on recheck was 90% patient still somewhat tahcypneic, but better nods head when asked if still hurting eating ok, ambulating to bathroom - mother states he seems winded after ROS: 10 point ROS unable to fully be obtained - pt nonverbal Physical exam GEN: Alert, nonverbal but grunts and motions/points HEENT: Normal conjunctiva, sclera anicteric CV: intermittent sinus tachycardia, no edema Pulm: shallow respirations, mild tachypnea; on 2L NC ABD: Soft, right sided tenderness Neuro: moves all extremities Problem List Severe sepsis secondary to pyelonephritis with retained right ureteral stent S/P new right-sided ureteral stent placement 09/06 Elevated troponin, suspected demand ischemia Seizure disorder Hypertension Autism-nonverbal at baseline Severe sepsis secondary to pyelonephritis with retained right ureteral stent S/P new right-sided ureteral stent placement 09/06 recent instrumentation f/u urine culture from 09/06 - mixed ildefonso leukocytosis resolved, afebrile continue empiric antibiotics - cefepime urology consulted renal U/S ordered - b/l hydronephrosis QTc borderline / prolonged on initial EKG, on multiple psych meds that have risk for increasing QTc, avoid FQNs if possible to minimize risk of further prolongation vantin on discharge Hypoxia unclear if just during sleep; suspect some component of SKYE room air sats borderline repeat CXR - poor inspiration, but slight increased vascular markings vs due to poor inspiratory film due to sepsis and bp soft on admission, pt received IVF and HCTZ held give IV lasix x1 and re-eval room air sats wean o2 as tolerated incentive spirometer restarted home pain medication regimen, suspect this will help - component of abd pain preventing good inspiration Elevated troponin cardiology consulted - demand ischemia, signed off, echocardiogram ok Seizure disorder continue home medications Autism-nonverbal at baseline Noted, at baseline per mother Hypertension restarted home HCTZ VTE: Lovenox Code: Full Dispo: home, ~1 day once off oxygen
[2022-09-11] MEDS: TRAZODONE 150 MG TAB PO SCH (21:00)
[2022-09-11] MEDS: BUSPIRONE HCL 5 MG TABLET PO SCH (22:09)
[2022-09-11] MEDS: FAMOTIDINE 20 MG TAB PO SCH (22:10)
[2022-09-11] MEDS: hydroCHLOROthiazide 25 MG TAB PO SCH (22:10)
[2022-09-11] MEDS: QUETIAPINE 100MG TAB PO SCH (22:28)
[2022-09-12] MEDS: ACETAMINOPHEN 500 MG TAB PO PRN (02:58)
[2022-09-12 06:16] LABS: Potassium 3.4 mmol/L (3.5-5.1)
[2022-09-12] MEDS: CENOBAMATE 200 MG PO SCH (09:00)
[2022-09-12] MEDS: HOME MED 1 EA UNK (L.Acidoph,Paracasei, B.Lactis [Probiotic] Capsule) PO SCH (09:00)
[2022-09-12] MEDS: TAMSULOSIN 0.4 MG SR CAP PO SCH (09:35)
[2022-09-12] MEDS: hydrOXYzine HCL 25 MG TAB PO SCH (09:35)
[2022-09-12] MEDS: CODEINE 30MG/APAP 300MG TAB PO SCH ×3 (09:36→21:59)
[2022-09-12] MEDS: LORAZEPAM 1 MG TABLET PO SCH ×2 (09:36→21:59)
[2022-09-12] MEDS: ENOXAPARIN 40 MG/0.4 ML SQ SCH (09:37)
[2022-09-12] MEDS: CEFEPIME 2 GM in NA CHLORIDE 0.9% 100 ML IV SCH ×2 (09:37→21:54)
[2022-09-12] MEDS ORDERED: POTASSIUM CL SA 10 MEQ TAB PO ONE (21:00)
--- NOTE | 2022-09-12 21:29 | P.PN ---
Date of Service: 09/12/22 Subjective: s/p lasix yesterday breathing more comfortably and deeper off/on oxygen appears more comfortable ROS: 10 point ROS unable to fully be obtained - pt nonverbal Physical exam GEN: Alert, nonverbal but grunts and motions/points HEENT: Normal conjunctiva, sclera anicteric CV: intermittent sinus tachycardia, no edema Pulm: normal respirations, mild tachypnea; on 1L NC ABD: Soft, right sided tenderness Neuro: moves all extremities Problem List Severe sepsis secondary to pyelonephritis with retained right ureteral stent S/P new right-sided ureteral stent placement 09/06 Elevated troponin, suspected demand ischemia Seizure disorder Hypertension Autism-nonverbal at baseline Severe sepsis secondary to pyelonephritis with retained right ureteral stent S/P new right-sided ureteral stent placement 09/06 recent instrumentation f/u urine culture from 09/06 - mixed ildefonso leukocytosis resolved, afebrile continue empiric antibiotics - cefepime urology consulted renal U/S ordered - b/l hydronephrosis QTc borderline / prolonged on initial EKG, on multiple psych meds that have risk for increasing QTc, avoid FQNs if possible to minimize risk of further prolongation vantin on discharge Hypoxia unclear if just during sleep; suspect some component of SKYE room air sats borderline repeat CXR - poor inspiration, but slight increased vascular markings vs due to poor inspiratory film due to sepsis and bp soft on admission, pt received IVF and HCTZ held give IV lasix x1 and re-eval room air sats wean o2 as tolerated incentive spirometer restarted home pain medication regimen, suspect this will help - component of abd pain preventing good inspiration Elevated troponin cardiology consulted - demand ischemia, signed off, echocardiogram ok Seizure disorder continue home medications Autism-nonverbal at baseline Noted, at baseline per mother Hypertension restarted home HCTZ VTE: Lovenox Code: Full Dispo: home, ~1 day once off oxygen
[2022-09-12] MEDS: FAMOTIDINE 20 MG TAB PO SCH (22:00)
[2022-09-12] MEDS: QUETIAPINE 100MG TAB PO SCH (22:00)
[2022-09-12] MEDS: BUSPIRONE HCL 5 MG TABLET PO SCH (22:00)
[2022-09-12] MEDS: hydroCHLOROthiazide 25 MG TAB PO SCH (22:00)
[2022-09-12] MEDS: TRAZODONE 150 MG TAB PO SCH (22:01)
[2022-09-13 04:46] LABS: Potassium 3.8 mmol/L (3.5-5.1)
[2022-09-13] MEDS: CENOBAMATE 200 MG PO SCH (09:00)
[2022-09-13] MEDS: HOME MED 1 EA UNK (L.Acidoph,Paracasei, B.Lactis [Probiotic] Capsule) PO SCH (09:00)
[2022-09-13] MEDS ORDERED: POTASSIUM CL SA 10 MEQ TAB PO ONE (09:00)
[2022-09-13] MEDS: hydrOXYzine HCL 25 MG TAB PO SCH (09:03)
[2022-09-13] MEDS: CODEINE 30MG/APAP 300MG TAB PO SCH ×3 (09:04→22:02)
[2022-09-13] MEDS: LORAZEPAM 1 MG TABLET PO SCH ×2 (09:04→22:01)
[2022-09-13] MEDS: ENOXAPARIN 40 MG/0.4 ML SQ SCH (09:06)
[2022-09-13] MEDS: CEFEPIME 2 GM in NA CHLORIDE 0.9% 100 ML IV SCH ×2 (09:06→22:00)
[2022-09-13] MEDS: TAMSULOSIN 0.4 MG SR CAP PO SCH (09:11)
[2022-09-13 15:00] LABS: Arterial Blood Carboxyhemoglob 1.6 % (0-1.5); Blood Gas Oxyhemoglobin 75.1 % (94-97); Blood O2 Saturation 77.6 % (92-98.5)
--- NOTE | 2022-09-13 19:37 | P.PN ---
Subjective Date of Service: 09/13/22 Chief Complaint: Sepsis, pyelonephritis Patient is nonverbal and cannot provide any subjective complaint. According to the mother, patient is at baseline and he wants to go home. He has been requiring oxygen by nasal cannula to keep his oxygen saturation above 90%. Physical Examination - Vital Signs Temperature: 98.7 F Blood Pressure: 125/73 Pulse: 87 Respirations: 17 Pulse Ox (%): 90 Assessment And Plan - Plan Physical exam GEN: Alert, nonverbal. Obey commands. HEENT: Normal conjunctiva, sclera anicteric CV: Regular rhythm, normal rate, no edema Pulm: normal respirations, diminished breath sounds bilaterally. ABD: Soft, no tenderness. Neuro: No focal motor deficit. Problem List Severe sepsis secondary to pyelonephritis with retained right ureteral stent S/P new right-sided ureteral stent placement 09/06 Elevated troponin, suspected demand ischemia Seizure disorder Hypertension Autism-nonverbal at baseline Severe sepsis secondary to pyelonephritis with retained right ureteral stent S/P/hydronephrosis Seen by urology, new right-sided ureteral stent placement 09/06 recent instrumentation Urine culture from 09/06 - mixed ildefonso leukocytosis resolved. continue empiric antibiotics - cefepime vantin on discharge Hypoxia Patient with hypoxia. SaO2 80% on room air, PO2 of 46 on room air. Chest x-ray demonstrated increased vascular markings and possible mild pulm edema. Status post IV Lasix x1 dose. Patient has mild CO2 retention and suspect obesity hypoventilation syndrome. Continue incentive spirometer Arrange for home oxygen. Elevated troponin Seen by cardiology Elevated troponin considered to be secondary to demand ischemia. Echocardiogram is unremarkable. Cardiology signed off. Seizure disorder continue home medications Autism-nonverbal at baseline Noted, at baseline per mother Hypertension Continue HCTZ VTE: Lovenox Code: Full Dispo: home pending home oxygen arrangement.
[2022-09-13] MEDS: TRAZODONE 150 MG TAB PO SCH (21:00)
[2022-09-13] MEDS: FAMOTIDINE 20 MG TAB PO SCH (22:01)
[2022-09-13] MEDS: hydroCHLOROthiazide 25 MG TAB PO SCH (22:02)
[2022-09-13] MEDS: QUETIAPINE 100MG TAB PO SCH (22:03)
[2022-09-13] MEDS: BUSPIRONE HCL 5 MG TABLET PO SCH (22:44)
[2022-09-14 06:14] LABS: Potassium 3.8 mmol/L (3.5-5.1)
[2022-09-14] MEDS ORDERED: CEFEPIME 2 GM VIAL ONE (08:20)
[2022-09-14] MEDS ORDERED: NA CHLORIDE 0.9% 100 ML ONE (08:23)
[2022-09-14] MEDS ORDERED: FUROSEMIDE 40 MG/4 ML VIAL IV SCH (09:00)
[2022-09-14] MEDS: CENOBAMATE 200 MG PO SCH (09:00)
[2022-09-14] MEDS: HOME MED 1 EA UNK (L.Acidoph,Paracasei, B.Lactis [Probiotic] Capsule) PO SCH (09:00)
[2022-09-14] MEDS: TAMSULOSIN 0.4 MG SR CAP PO SCH (09:21)
[2022-09-14] MEDS: CODEINE 30MG/APAP 300MG TAB PO SCH (09:21)
[2022-09-14] MEDS: ENOXAPARIN 40 MG/0.4 ML SQ SCH (09:21)
[2022-09-14] MEDS: LORAZEPAM 1 MG TABLET PO SCH (09:21)
[2022-09-14] MEDS: hydrOXYzine HCL 25 MG TAB PO SCH (09:22)
[2022-09-14] MEDS: CEFEPIME 2 GM in NA CHLORIDE 0.9% 100 ML IV SCH (09:25)
[2022-09-14] MEDS ORDERED: POTASSIUM CL SA 10 MEQ TAB PO ONE (12:00)
[2022-09-14 12:47] VITALS: BP 138/74; TEMP 97; O2SAT 91
--- NOTE | 2022-09-14 13:06 | P.DS ---
Admission Date: 09/07/22 Discharge Date: 09/14/22 Disposition: ROUTINE DISCHARGE Discharge Condition: FAIR Reason for Admission: Sepsis, pyelonephritis Brief History of Present Illness: 47-year-old male with history of autism, hypertension, seizure disorder had a procedure yesterday on 09/06/[address] Joyner with attempted right ureteral stent extraction. Patient has had a right ureteral stent in place for the last 3 years. During the procedure he was noted to have retained right ureteral stent, left staghorn renal calculus, encrusted right ureteral stent not removable, meatal stenosis, urethral stricture. The right-sided stent was unable to be removed during the procedure, a right 6 Turk[place] by 26 cm new ureteral stent was placed alongside the retained ureteral stent, patient also had meatal dilation using sounds intraoperatively. Patient was given intraoperative antibiotics and subsequently discharged home with prescription for Augmentin. Patient is nonverbal, mother reports that she noticed patient was breathing fast and shallow and checked his temperature, found to be febrile to 102 and brought him into the emergency department for evaluation. Patient was noted to be febrile, tachycardic upon arrival to the emergency department he was given 30 cc/kg IV fluid bolus. Labs were significant for marked leukocytosis, bandemia lactic acid 2.1 moderately elevated high-sensitivity troponin. Case was discussed with urology, patient was started on cefepime in the emergency department, blood cultures were obtained and patient admitted for further management. Hospital Course: Diagnosis Severe sepsis secondary to pyelonephritis with retained right ureteral stent S/P new right-sided ureteral stent placement 09/06 Elevated troponin, suspected demand ischemia Seizure disorder Hypertension Autism-nonverbal at baseline Patient was admitted to the medical floor and the following medical problems addressed: Severe sepsis secondary to pyelonephritis with retained right ureteral stent/hydronephrosis Seen by urology, new right-sided ureteral stent placement 09/06 History of recent instrumentation Urine culture from 09/06 - mixed ildefonso He had leukocytosis which resolved. He was treated with empiric cefepime. Transitioned to vantin on discharge Hypoxia/restrictive lung disease/history of ankylosing spondylitis Patient with hypoxia. SaO2 80% on room air, PO2 of 46 on room air. PCO2 of 58.1 Chest x-ray demonstrated increased vascular markings and possible mild pulm edema. Patient treated with multiple doses of IV Lasix Patient has mild CO2 retention and suspect obesity hypoventilation syndrome and restrictive lung disease related to ankylosing spondylitis. Patient treated with incentive spirometer. Home oxygen arranged on discharge. Elevated troponin Seen by cardiology Elevated troponin considered to be secondary to demand ischemia. Echocardiogram is unremarkable. Cardiology signed off. Seizure disorder Stable continued home medications Autism-nonverbal at baseline He is at baseline per mother Hypertension Continue HCTZ Vital Signs/Physical Exam: Temp Pulse Resp BP Pulse Ox 97.0 F 75 18 138/74 91 09/14/22 12:00 09/14/22 12:00 09/14/22 12:00 09/14/22 12:00 09/14/22 12:00 General: Other (Awake, nonverbal) HEENT: Mucous membr. moist/pink Neck: JVD not distended Respiratory: Diminished (Bilateral) Cardiovascular: Regular rate/rhythm, Normal S1 S2 Gastrointestinal: Soft and benign, Non-distended, No tenderness Musculoskeletal: No swelling Integumentary: No rashes, No cyanosis Neurological: Other (No focal motor deficit) Laboratory Data at Discharge: WBC 9.50 K/uL (4.3-10.9) 09/10/22 04:13 Hgb 13.2 g/dL (13.6-17.9) L 09/10/22 04:13 Hct 40.6 % (39.6-49.0) 09/10/22 04:13 Plt Count 183 K/uL (152-406) D 09/10/22 04:13 PT 13.3 SECONDS (9.5-12.5) H 09/06/22 23:48 INR 1.21 09/06/22 23:48 Sodium 138 mmol/L (136-145) 09/14/22 05:18 Potassium 3.8 mmol/L (3.5-5.1) 09/14/22 05:18 BUN 26 mg/dL (7-18) H 09/14/22 05:18 Creatinine 1.20 mg/dL (0.70-1.30) 09/14/22 05:18 Glucose 123 mg/dL (74-106) H 09/14/22 05:18 Magnesium 1.7 mg/dL (1.6-2.4) 09/06/22 23:48 Total Bilirubin 0.3 mg/dL (0.2-1.0) 09/06/22 23:48 AST 42 U/L (15-37) H 09/06/22 23:48 ALT 55 U/L (16-61) 09/06/22 23:48 Alkaline Phosphatase 104 U/L (45-117) 09/06/22 23:48 Home Medications: LORazepam [Ativan*] 2 mg PO DAILY WITH BREAKFAST 07/22/15 LORazepam [Ativan*] 4 mg PO BEDTIME 07/22/15 Trazodone [Desyrel*] 225 mg PO BEDTIME 07/22/15 Buspirone HCl [Buspar] 20 mg PO BEDTIME 03/30/22 Acetaminophen with Codeine [Acetaminophen-Cod #4 Tablet] 1 each PO BIDP PRN 08/31/22 Cenobamate [Xcopri] 200 mg PO DAILY 08/31/22 Duloxetine HCl [Cymbalta] 2 cap PO BEDTIME 08/31/22 Famotidine [Pepcid] 40 mg PO BEDTIME 08/31/22 L.acidoph,Paracasei, B.lactis [Probiotic] 6 each PO DAILY 08/31/22 Multivitamin 1 each PO DAILY 08/31/22 [place]-3 Fatty Acids [[place]-3] 2 cap PO DAILY 08/31/22 Quetiapine Fumarate [Seroquel] 2 tab PO BEDTIME 08/31/22 Tamsulosin HCl 0.4 mg PO DAILY 08/31/22 hydrOXYzine HCL [Atarax] 100 mg PO DAILY 08/31/22 hydroCHLOROthiazide [Hydrochlorothiazide] 25 mg PO BEDTIME 08/31/22 Cefpodoxime Proxetil 200 mg PO BID #28 tab 09/14/22 New Medications: Cefpodoxime Proxetil 200 mg PO BID #28 tab Diet: AHA Activity: Fall precautions Followup: Tee Alfaro MD [ACTIVE - CAN ADMIT] - 1-2 Weeks Time spent managing pt's care (in minutes): 41
--- NOTE | 2022-09-14 15:26 | EKG ---
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
--- NOTE | 2022-09-14 21:27 | RAD REPORT ---
EXAM DESCRIPTION: CT - Chest For Pe Angio - 09/13/2022 10:54 pm CLINICAL HISTORY: Hypoxia COMPARISON: Chest Single View dated 09/11/2022 TECHNIQUE: Dynamically enhanced axial 3 mm thick images of the chest were obtained during administra tion of <100> mL Isovue 370 IV contrast. Coronal and oblique reconstruction images were generated and reviewed. Exam utilizes a protocol for optimal evaluation of pulmonary arterial tree. Maximum intensity projections 3D imaging was utilized All CT scans are performed using dose optimization technique as appropriate and may include automated exposure control or mA/KV adjustment according to patient size. FINDINGS: Chest Wall: No suspicious thyroid nodules or pathologic lymphadenopathy. Lungs: Significantly limited due to motion artifact. Dependent atelectasis and/or airspace disease . Pleura: No significant effusions or pneumothorax. Mediastinum/gita: No pathologic lymphadenopathy. Pulmonary arteries/Aorta: Significantly limited due to motion. No aortic aneurysm.A clinically signif icant pulmonary embolus cannot be excluded on the basis of this study. No central pulmonary embolus i s identified. Heart: No significant pericardial effusion. Normal heart size. Upper abdomen: No acute abnormality.Syndesmophytes in the spine. Bones: No acute abnormality. IMPRESSION: Study limited due to motion artifact and low lung volumes. A clinically significant pulm onary embolus cannot be excluded on the basis of this exam. No central pulmonary embolus is identifie d. Dependent airspace disease could reflect atelectasis, aspiration, and/or pneumonia.
--- NOTE | 2022-09-15 08:07 | P.CNS ---
Date of Consult: 09/12/22 Chief Complaint: Respiratory failure History of Present Illness: Patient is 47 years of age was admitted with urosepsis he has had stents also renal calculi and was found to be hypoxic no prior history of cardiopulmonary disorder patient is nonverbal mother at the bedside never smoked does have ankylosing spondylitis that causes restriction of his neck movement Allergies Sulfa (Sulfonamide Antibiotics) Adverse Reaction (Verified 09/06/22 08:02) Nausea/Vomiting tramadol Adverse Reaction (Verified 09/06/22 08:02) very depressed, lethargic Home Medications: LORazepam [Ativan*] 2 mg PO DAILY WITH BREAKFAST 07/22/15 LORazepam [Ativan*] 4 mg PO BEDTIME 07/22/15 Trazodone [Desyrel*] 225 mg PO BEDTIME 07/22/15 Buspirone HCl [Buspar] 20 mg PO BEDTIME 03/30/22 Acetaminophen with Codeine [Acetaminophen-Cod #4 Tablet] 1 each PO BIDP PRN 08/31/22 Cenobamate [Xcopri] 200 mg PO DAILY 08/31/22 Duloxetine HCl [Cymbalta] 2 cap PO BEDTIME 08/31/22 Famotidine [Pepcid] 40 mg PO BEDTIME 08/31/22 L.acidoph,Paracasei, B.lactis [Probiotic] 6 each PO DAILY 08/31/22 Multivitamin 1 each PO DAILY 08/31/22 [place]-3 Fatty Acids [[place]-3] 2 cap PO DAILY 08/31/22 Quetiapine Fumarate [Seroquel] 2 tab PO BEDTIME 08/31/22 Tamsulosin HCl 0.4 mg PO DAILY 08/31/22 hydrOXYzine HCL [Atarax] 100 mg PO DAILY 08/31/22 hydroCHLOROthiazide [Hydrochlorothiazide] 25 mg PO BEDTIME 08/31/22 Cefpodoxime Proxetil 200 mg PO BID #28 tab 09/14/22 - Past Medical/Surgical History -: Autism -: Seizure disorder -: Hypertension -: Previous ureteral stent Psychosocial/ Personal History: Patient lives at home with his mother - Social History Alcohol use: No CD- Drugs: No Caffeine use: No Place of Residence: Home Review of Systems is unable to be obtained Physical Examination Temp Pulse Resp BP Pulse Ox 97.0 F 75 18 138/74 91 09/14/22 12:00 09/14/22 12:00 09/14/22 12:00 09/14/22 12:00 09/14/22 12:00 General: Alert Respiratory: Clear to auscultation bilaterally, Diminished Cardiovascular: No edema, Normal pulses - Problems (1) Respiratory failure Status: Acute Plan: Patient is 47 years of age admitted with urosepsis secondary to renal stones he has had a stent placed found to be in respiratory failure hypoxic mildly hypercapnic no prior history of cardiopulmonary disorder Labs chemistries reviewed white count is declining cultures are so far negative I suspect that he has obesity hypoventilation syndrome agree with oxygen for now discussed with the mother she will need an outpatient sleep study vital signs stable he was treated with cefepime follow-up with me in 2 weeks Qualifiers: Respiratory failure complication: hypoxia and hypercapnia
== END 2022-09-14 15:17 | disposition home or self-care (01) | DRG 698 ==
LOC: ER 19:51 → ERHOLD 09-07 00:46 → 4TH 09-07 18:07 → 2ND 09-10 17:11
PROVIDERS: ADMIT Hospitalist; ATTEND Internal Medicine
DX: T83.593A Infection and inflammatory reaction due to other urinary stents, initial encounter (principal); A41.9 Sepsis, unspecified organism; R65.21 Severe sepsis with septic shock; J96.01 Acute respiratory failure with hypoxia; J96.02 Acute respiratory failure with hypercapnia; F84.0 Autistic disorder; Z68.42 Body mass index [BMI] 45.0-49.9, adult; N10 Acute pyelonephritis; I24.8 Other forms of acute ischemic heart disease; N17.9 Acute kidney failure, unspecified; E66.2 Morbid (severe) obesity with alveolar hypoventilation; I11.0 Hypertensive heart disease with heart failure; I50.9 Heart failure, unspecified; M45.9 Ankylosing spondylitis of unspecified sites in spine; J98.4 Other disorders of lung; G40.909 Epilepsy, unspecified, not intractable, without status epilepticus; Z88.5 Allergy status to narcotic agent; Z88.1 Allergy status to other antibiotic agents; Z95.9 Presence of cardiac and vascular implant and graft, unspecified; Z79.899 Other long term (current) drug therapy; Z20.822 Contact with and (suspected) exposure to COVID-19; Y83.8 Other surgical procedures as the cause of abnormal reaction of the patient, or of later complication, without mention of misadventure at the time of the procedure
CPT/HCPCS: 0240U; 36415; 51610; 71045; 71275; 74018; 74450; 76770; 80048; 80076; 81015; 82805; 83605; 83735; 83880; 84484; 85025; 85610; 87040; 87086; 87088; 88108; 88305; 93005; 93306; 94010; 96374; 96375; 99285; J0290; J0692; J1580; J1650; J1940; J2001; J2250; J2270; J2405; J2704; J3010; J7030; J7120; Q9967

== ENCOUNTER 2022-09-22 15:00 | Emergency (ER) | payer OTHER ==
[2022-09-22 15:41] LABS: Urine Blood 2+ (Negative); Urine Glucose Negative (Negative); Urine Protein 1+ (Negative); Urine Specific Gravity 1.015 (1.005-1.030)
[2022-09-22 15:52] LABS: Urine Bacteria 20-50 /HPF (<20); Urine Mucus Slight /HPF (None Seen); Urine RBC >50 /HPF (None Seen)
--- NOTE | 2022-09-22 16:42 | ER ---
Nurse's Notes [facility] Name: Navi Harp Age: 47 yrs Sex: Male : 1975 Arrival Date: 09/22/2022 Time: 15:09 Bed 5 Private MD: Diagnosis: UTI/ Urinary tract infection, site not specified Presentation: 09/22 15:24 Chief complaint: Parent and/or Guardian states: just had a procedure done with Dr. georgina Joyner to remove a ureter that was calcified and had caused sepsis , finished antibiotics yesterday , she noticed decreased urine output 3 days ago and decrease in activity level, pt has autism and is nonverbal. Coronavirus screen: At this time, the client does not indicate any symptoms associated with coronavirus-19. Ebola Screen: Patient negative for fever greater than or equal to 101.5 degrees Fahrenheit, and additional compatible Ebola Virus Disease symptoms Patient denies exposure to infectious person. Patient denies travel to an Ebola-affected area in the 21 days before illness onset. No symptoms or risks identified at this time. 15:24 Method Of Arrival: Ambulatory iw 15:24 Acuity: ANABEL 3 iw 15:30 Initial Sepsis Screen: Does the patient meet any 2 criteria? No. Patient's initial ph sepsis screen is negative. Does the patient have a suspected source of infection? No. Patient's initial sepsis screen is negative. Risk Assessment: Do you want to hurt yourself or someone else? Patient reports no desire to harm self or others. Onset of symptoms was September 22, 2022. Historical: - Allergies: 15:31 Sulfa (Sulfonamide Antibiotics); iw 15:31 tramadol; iw - PMHx: 15:31 Autism; Hypertensive disorder; Kidney stone; iw - PSHx: 15:31 renal stent; iw - Immunization history:: Adult Immunizations unknown. - Family history:: not pertinent. - Social history:: Smoking status: Patient denies any tobacco usage or history of. - Hospitalizations: : No recent hospitalization is reported. Screenin:46 [facility] ED Fall Risk Assessment (Adult) Score/Fall Risk Level 3 or more points = High hb Risk Oriented to surroundings, Maintained a safe environment, Educated pt \T\ family on fall prevention, incl call for assistance when getting out of bed. Abuse screen: pt AMS, no s/s abuse. Nutritional screening: No deficits noted. Tuberculosis screening: No symptoms or risk factors identified. Assessment: 15:30 General: Appears in no apparent distress. comfortable, well groomed, Behavior is calm, ph inappropriate for age, quiet. Pain: Unable to use pain scale. Does not appear to understand pain scale. FLACC scale score is 0 out of 10. Neuro: Level of Consciousness is awake, alert, obeys commands, Oriented to person, place. Cardiovascular: Capillary refill < 3 seconds in bilateral fingers Patient's skin is warm and dry. Respiratory: Airway is patent Respiratory effort is even, unlabored. Derm: Skin is healthy with good turgor, Skin is pink, warm \T\ dry. 16:52 Reassessment: Patient appears in no apparent distress at this time. Patient and/or ph family updated on plan of care and expected duration. Pain level reassessed. Pt not cooperative w/ blood draw, Dr Agustin at bedside to speak w/ mother about canceling blood work at this time, pt has stable VS that do not reflect sepsis, he received IV antibiotics for 8 days while hospitalized and is currently taking antibiotics at home. Pt was also able to urinate w/ only 48 ml post-void left in bladder. Dr Agustin recommended placing pt on another oral antibiotic and seeing how he does at home, mother agrees to plan of care. Instructed her to bring pt back to ED for high fever, N/V or worsening of symptoms. Vital Signs: 16:58 BP 147 / 86; Pulse 94; Resp 18; Temp 97.9; Pulse Ox 99% on R/A; ph ED Course: 15:09 Patient arrived in ED. mr 15:14 Jose Agustin MD is Attending Physician. rn 15:27 Triage completed. iw 15:31 Arm band placed on. iw 15:46 Lurdes Jeff, RN is Primary Nurse. hb 15:46 Bladder scan completed. 48mls. hb 16:00 Patient has correct armband on for positive identification. Bed in low position. Call ph light in reach. Adult w/ patient. 16:55 No provider procedures requiring assistance completed. Patient did not have IV access ph during this emergency room visit. 16:58 Primary Nurse role handed off by Lurdes Jeff, RAYSA ph 16:58 Taty Mo, RN is Primary Nurse. ph Administered Medications: No medications were administered Medication: 16:00 VIS not applicable for this client. ph Outcome: 16:42 Discharge ordered by . rn 16:59 Patient left the ED. ph 16:59 Discharged to home ambulatory, with family. ph 16:59 Condition: good 16:59 Discharge instructions given to family, Instructed on discharge instructions, follow up and referral plans. medication usage, Demonstrated understanding of instructions, follow-up care, medications, Prescriptions given X 1. Signatures: Lu Wade Irene, RN RN Jose Agustin MD MD rn Hall, Patricia, RN RN Lurdes Jeff RN RN
--- NOTE | 2022-09-22 16:42 | EDPHYS ---
Physician Documentation [facility] Name: Navi Harp Age: 47 yrs Sex: Male : 1975 Arrival Date: 09/22/2022 Time: 15:09 Bed 5 Private MD: ED Physician Jose Agustin HPI: 09/22 16:09 This 47 yrs old Male presents to ER via Ambulatory with complaints of Urinary Problem. rn 16:09 The patient presents with urinary symptoms, unable to void. Onset: The symptoms/episode rn began/occurred at an unknown time. Modifying factors: The symptoms are alleviated by nothing, the symptoms are aggravated by nothing. Associated signs and symptoms: Pertinent negatives: fever, hematuria. Severity of symptoms: At their worst the symptoms were mild, in the emergency department the symptoms are unchanged. The patient has not experienced similar symptoms in the past. The patient has been recently seen by a physician:. Family member reports patient appears to have difficulty urinating, is being treated for UTI currently with abx, does urinate but family member reports drinking a lot and "should have more pee". No fever/chills. Pt autistic and difficult to get information from. . Historical: - Allergies: 15:31 Sulfa (Sulfonamide Antibiotics); iw 15:31 tramadol; iw - PMHx: 15:31 Autism; Hypertensive disorder; Kidney stone; iw - PSHx: 15:31 renal stent; iw - Immunization history:: Adult Immunizations unknown. - Family history:: not pertinent. - Social history:: Smoking status: Patient denies any tobacco usage or history of. - Hospitalizations: : No recent hospitalization is reported. ROS: 16:09 Unable to obtain ROS due to autism. rn Exam: 16:09 Constitutional: This is a well developed, well nourished patient who is awake, alert, rn and in no acute distress. Head/Face: Normocephalic, atraumatic. Cardiovascular: Regular rate and rhythm. No pulse deficits. Respiratory: No increased work of breathing, no retractions or nasal flaring. Abdomen/GI: soft, non-tender Neuro: Awake and alert, GCS 15 Vital Signs: 16:58 BP 147 / 86; Pulse 94; Resp 18; Temp 97.9; Pulse Ox 99% on R/A; ph MDM: 15:14 Patient medically screened. rn 15:46 ED course: Post void residual 45ml, not obstructed, does not need jaeger catheter. . rn 16:38 Differential diagnosis: UTI, urinary retention. Data reviewed: vital signs, nurses rn notes, lab test result(s), and as a result, I will discharge patient. Management of patient was discussed with the following: Mother. Historians other than the Patient: Parent: MOther. Care significantly affected by the following chronic conditions: Autism. Counseling: I had a detailed discussion with the patient and/or guardian regarding: the historical points, exam findings, and any diagnostic results supporting the discharge/admit diagnosis, lab results, the need for outpatient follow up, to return to the emergency department if symptoms worsen or persist or if there are any questions or concerns that arise at home. Response to treatment: the patient's symptoms have mildly improved after treatment, and as a result, I will discharge patient. ED course: Patient not allowing nursing to obtain IV or blood. Spoke at length with mother, main concern was that patient does not have urinary blockage which we have ruled out. Urine still a little dirty, not sure if chronic/colonization given multiple urine cultures in past including last admission without growth. Stable vitals. Will dc home with levaquin and given return precautions. Explained to mother that does not appear unstable or incredibly ill to require restraints and forcing him to obtain blood. Return precautions given and understood. . 09/22 15:27 Order name: Urine Culture rn 09/22 15:27 Order name: Urine Microscopic Only; Complete Time: 16:34 rn 09/22 15:27 Order name: Urine Dipstick-Ancillary (obtain specimen); Complete Time: 15:46 rn 09/22 15:27 Order name: Bladder Scanner: perform post-void residual; Complete Time: 15:46 rn 09/22 15:41 Order name: Urine Dipstick-Ancillary; Complete Time: 15:45 EDMS Administered Medications: No medications were administered Disposition Summary: 09/22/22 16:42 Discharge Ordered Location: Home rn Problem: an ongoing problem rn Symptoms: are unchanged rn Condition: Stable rn Diagnosis - UTI/ Urinary tract infection, site not specified rn Followup: rn - With: Private Physician - When: As needed - Reason: Recheck today's complaints, Re-evaluation by your physician Discharge Instructions: - Discharge Summary Sheet rn - Urinary Tract Infection, Adult rn Forms: - Medication Reconciliation Form rn - Thank You Letter rn - 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
[2022-09-22 17:03] VITALS: BP 147/86; TEMP 97.9; O2SAT 99
== END 2022-09-22 16:59 | disposition home or self-care (01) ==
LOC: ER 15:00
DX: N39.0 Urinary tract infection, site not specified (principal); I10 Essential (primary) hypertension; F84.0 Autistic disorder; Z88.2 Allergy status to sulfonamides; Z88.5 Allergy status to narcotic agent
CPT/HCPCS: 81003; 81015; 87086; 87088; 99282

== ENCOUNTER 2022-10-08 12:20 | Emergency (ER) | payer OTHER ==
[2022-10-08] MEDS ORDERED: KETAMINE HCL 500 MG/5 ML VIAL ONE (12:45)
[2022-10-08 13:03] LABS: Absolute Lymphocytes (CBC) 1.9 K/uL (0.7-4.9); Hematocrit 43.6 % (39.6-49.0); Lymphocytes % 32.8 % (15.3-44.8); MCV 86.6 fL (80-100); RBC Red Blood Cell Count 5.04 M/uL (4.33-5.43)
[2022-10-08] MEDS ORDERED: NA CHLORIDE 0.9% 500 ML ONE (13:16)
[2022-10-08 13:19] LABS: Potassium 3.8 mEq/L (3.5-5.1)
[2022-10-08 13:26] LABS: Urine Bacteria <20 /HPF (<20); Urine Crystals Unidentified Few /HPF (None Seen); Urine Mucus Slight /HPF (None Seen); Urine RBC >50 /HPF (None Seen); Urine WBC Clump Rare /HPF (None Seen)
--- NOTE | 2022-10-08 13:38 | RAD REPORT ---
EXAM DESCRIPTION: CT - Abdomen Pelvis Wo Contrast - 10/08/2022 1:23 pm CLINICAL HISTORY: Hematuria COMPARISON: None TECHNIQUE: Computed axial tomography of the abdomen and pelvis was obtained. IV and oral contrast we re not requested. All CT scans are performed using dose optimization technique as appropriate and may include automated exposure control or mA/KV adjustment according to patient size. FINDINGS: The evaluation of solid organs, vessels and bowel is limited secondary to the lack of con trast administration. Some images were degraded by patient motion artifact. Staghorn calculus left kidney. 3 centimeter fluid upper pole left kidney probably a cyst. Focal hydro nephrosis is another consideration. Areas of cortical thinning are probably related to prior inflamma tion. Stent has been placed into the right renal pelvis extending into the bladder. Several right renal moses culi. Marked right hydronephrosis. Right ureter normal caliber. Calculus right UPJ not seen. Areas co rtical thinning probably related to prior inflammation Visualized liver appears grossly normal Spleen, pancreas and adrenals appear grossly normal No evidence of diverticulitis Scoliosis IMPRESSION: Marked right hydronephrosis. Right ureteral stent in place. Site of obstruction right UP J. Perhaps there is a stricture Staghorn calculus left kidney
[2022-10-08 13:42] LABS: Specific Gravity 1.014 (1.005-1.030); Urine Bilirubin NEGATIVE (Negative); Urine Blood 3+ (OVER) (Negative); Urine Clarity Turbid (Clear); Urine Color Light-Yellow (Yellow); Urine Glucose NEGATIVE (Negative); Urine Protein 1+ (Negative); Urine Urobilinogen Normal (Normal); Urine pH 5.5 (5.0-7.0)
--- NOTE | 2022-10-08 16:16 | EDPHYS ---
Physician Documentation [facility] Name: Navi Harp Age: 47 yrs Sex: Male : 1975 Arrival Date: 10/08/2022 Time: 12:22 Bed 3 Private MD: ED Physician Laci Dumont HPI: 10/08 13:34 This 47 yrs old Male presents to ER via Ambulatory with complaints of Urinary bs3 Retention. 13:34 47-year-old male history of kidney stones, moderate to severe autism, hypertension bs3 recently seen here for dysuria and diagnosed with urinary tract infection however urine culture was negative presents with urinary retention per his mom who is providing the full history she notes over the last several days he is making very small amount of urine no fevers or chills no pain nothing else bothering him she notes that she thinks that one of the kidney stones which she had a stent for possibly got lodged somewhere history is limited secondary to the patient's mental status and baseline ability to provide a history. Historical: - Allergies: 12:42 Sulfa (Sulfonamide Antibiotics); jl7 12:42 tramadol; jl7 - PMHx: 12:42 Autism; Non-verbal; Hypertensive disorder; Kidney stone; jl7 - PSHx: 12:42 renal stent; jl7 - Immunization history:: Adult Immunizations unknown. - Social history:: Smoking status: Patient denies any tobacco usage or history of. ROS: 13:34 Constitutional: Negative for fever, chills bs3 13:34 Unable to obtain ROS due to patient's inability to understand questions. Exam: 13:34 Constitutional: This is a well developed, well nourished patient who is awake, alert, bs3 and in no acute distress. Head/Face: Normocephalic, atraumatic. Eyes: Pupils equal round and reactive to light, extra-ocular motions intact. Lids and lashes normal. ENT: mmm, no posterior phyarngeal erythema Neck: Trachea midline, no thyromegaly, no neck stiffness Chest/axilla: Normal chest wall appearance and motion. Nontender with no deformity. No lesions are appreciated. Cardiovascular: Regular rate and rhythm with a normal S1 and S2. symmetric pulses in upper extremities Respiratory: Lungs have equal breath sounds bilaterally, clear to auscultation, no respiratory distress MS/ Extremity: Pulses equal, no cyanosis. Neurovascular intact. Full, normal range of motion. Neuro: Awake and alert, patient ambulating without any distress he responds to simple commands and occasionally follows direction Vital Signs: 12:39 Weight 130.18 kg; kr3 12:45 BP 132 / 86; Pulse 83; Resp 15; Temp 97.9; Pulse Ox 95% ; jl7 13:31 BP 135 / 87; Pulse 77; Resp 17; Pulse Ox 99% on Non-rebreather mask; kr3 14:30 BP 121 / 82; Pulse 82; Resp 15; Pulse Ox 96% on R/A; hb Procedures: 14:18 Moderate sedation: Pre-procedure assessment: the patient has been NPO 2 hour(s) prior bs3 to arrival, ASA physical classification: II - mild/mod systemic disease that does not interfere with daily routines, Airway assessment: able to maintain airway, can open mouth without difficulty, Mallampati classification of tongue size: II - faucial pillars and soft palate can be visualized, but uvula is masked by the base of the tongue, Monitoring during procedure: monitor and storage bin tender, continuous pulse oximetry, nurse at bedside at all times, Medications employed: Ketamine, 250 mg(s), Post-procedure assessment: the patient is moderately sedated, Chavez sedation score: 4 - brisk response to a light glabellar tap, Respiratory status: even and unlabored, a reversal agent was not used. MDM: 12:23 Patient medically screened. bs3 13:34 Differential diagnosis: Possible urinary tract infection possible kidney stone versus bs3 urinary retention possible renal failure we will check labs will get a urinalysis and reassess Patient would not get into the bed he became agitated we discussed with mother at bedside noted that he will only do labs when he is very very sick we discussed risks and benefits to multiple treatments and she noted that ketamine was the only thing that allows people to do procedures on him therefore the decision was made to use ketamine to allow us to rule out life-threatening processes he tolerated ketamine very well. Data reviewed: vital signs, nurses notes. 13:34 ED course: After initial conversation mother notes that over the past day he is having bs3 diarrhea. 13:54 ED course: Labs notable for normal creatinine and normal CBC he does have a UA which bs3 could be infectious however he has no infectious symptoms I suspect it is likely secondary to his stent and chronic kidney stones he was recently treated with antibiotics advised to follow-up on Monday. 14:18 Independent interpretation of the following test(s) in the Emergency Department CT bs3 Scan: My interpretation is Ureteral stent in place, left staghorn kidney. 15:26 ED course: Patient reassessed multiple times after sedation continues to experience bs3 improvement, still slightly drowsy will reassess again almost stable for discharge. 16:15 ED course: pt requesting to go home. . bs3 10/08 12:38 Order name: CBC with Diff; Complete Time: 13:45 bs3 10/08 12:38 Order name: BMP; Complete Time: 13:45 bs3 10/08 12:38 Order name: CT Abd/Pelvis - Without Contrast; Complete Time: 13:45 bs3 10/08 12:38 Order name: Campuzano; Complete Time: 13:09 bs3 10/08 12:38 Order name: UA; Complete Time: 13:45 bs3 10/08 13:48 Order name: Urine Culture EDMS Administered Medications: 12:46 Drug: Ketamine IM 250 mg Route: IM; Site: left deltoid; kr3 14:00 Follow up: Response: No adverse reaction kr3 12:58 Drug: Ketamine IVP 75 mg Route: IVP; Site: left hand; jl7 14:00 Follow up: Response: No adverse reaction kr3 13:31 Drug: NS 0.9% IV 500 ml Route: IV; Rate: 1000 ml/hr; Site: left hand; kr3 13:40 Not Given (Other Intervention Used): Ketamine IM 220 mg IM once kr3 Disposition Summary: 10/08/22 16:15 Discharge Ordered Location: Home bs3 Problem: new bs3 Symptoms: have improved bs3 Condition: Stable bs3 Diagnosis - Dysuria bs3 Followup: bs3 - With: Private Physician - When: 48 Hours - Reason: Re-evaluation by your physician Discharge Instructions: - Discharge Summary Sheet bs3 - Dysuria bs3 - Kidney Stones, [id number] bs3 Forms: - Antibiotic Education bs3 - Prescription Opioid Use bs3 - Medication Reconciliation Form bs3 - Thank You Letter bs3 Signatures: Dispatcher [employer] EDMS Chivo Saeed RN RN jl7 Hallie Quinteros RN RN kr3 Dumont, Laci, MD MD bs3
--- NOTE | 2022-10-08 16:16 | ER ---
Nurse's Notes [facility] Name: Navi Harp Age: 47 yrs Sex: Male : 1975 Arrival Date: 10/08/2022 Time: 12:22 Bed 3 Private MD: Diagnosis: Dysuria Presentation: 10/08 12:40 Chief complaint: Patient states: Urinary retention x 4 days, hx of kidney stones, stent jl7 placed 1 month ago. Coronavirus screen: At this time, the client does not indicate any symptoms associated with coronavirus-19. Ebola Screen: No symptoms or risks identified at this time. Risk Assessment: Do you want to hurt yourself or someone else? Unable to obtain. Onset of symptoms was October 05, 2022. 12:40 Method Of Arrival: Ambulatory [facility] 12:40 Acuity: ANABEL 3 jl7 12:45 Initial Sepsis Screen: Does the patient meet any 2 criteria? No. Patient's initial hb sepsis screen is negative. Does the patient have a suspected source of infection? No. Patient's initial sepsis screen is negative. Triage Assessment: 12:42 General: Appears in no apparent distress. uncomfortable, Behavior is uncooperative. jl7 Historical: - Allergies: 12:42 Sulfa (Sulfonamide Antibiotics); jl7 12:42 tramadol; jl7 - PMHx: 12:42 Autism; Non-verbal; Hypertensive disorder; Kidney stone; jl7 - PSHx: 12:42 renal stent; jl7 - Immunization history:: Adult Immunizations unknown. - Social history:: Smoking status: Patient denies any tobacco usage or history of. Screenin:29 [facility] ED Fall Risk Assessment (Adult) History of falling in the last 3 months, kc6 including since admission No falls in past 3 months (0 pts) Confusion or Disorientation No (0 pts) Intoxicated or Sedated No (0 pts) Impaired Gait No (0 pts) Mobility Assist Device Used No (0 pt) Altered Elimination No (0 pt) Score/Fall Risk Level 0 - 2 = Low Risk Oriented to surroundings, Maintained a safe environment, Educated pt \T\ family on fall prevention, incl call for assistance when getting out of bed, Assessed \T\ reinforced patient's understanding of fall precautions, Hourly rounding (assess needs \T\ fall precautionary measures) done. Abuse screen: Denies threats or abuse. Denies injuries from another. Nutritional screening: No deficits noted. Tuberculosis screening: No symptoms or risk factors identified. Assessment: 12:30 General: Appears in no apparent distress. comfortable, Behavior is calm, cooperative, kc6 appropriate for age. Pain: Unable to use pain scale. Does not appear to understand pain scale. FLACC scale score is 0 out of 10. Neuro: Matthews Agitation-Sedation Scale (RASS): 0 - Alert and Calm Level of Consciousness is awake, alert, obeys commands, Oriented to person, Appropriate for age. Cardiovascular: Capillary refill < 3 seconds. Respiratory: Airway is patent Trachea midline Respiratory effort is even, unlabored, Respiratory pattern is regular, symmetrical. GI: No signs and/or symptoms were reported involving the gastrointestinal system. EENT: No signs and/or symptoms were reported regarding the EENT system. Derm: No signs and/or symptoms reported regarding the dermatologic system. Skin is intact, Skin is pink, warm \T\ dry. Musculoskeletal: No signs and/or symptoms reported regarding the musculoskeletal system. Circulation, motion, and sensation intact. Capillary refill < 3 seconds, Range of motion: intact in all extremities. 13:12 Reassessment: Pt to CT via stretcher, on monitor, with RAYSA Sterling. jl7 14:30 Reassessment: Patient appears in no apparent distress at this time. VS WNL. Mother hb remains at bedside. Vital Signs: 12:39 Weight 130.18 kg; kr3 12:45 BP 132 / 86; Pulse 83; Resp 15; Temp 97.9; Pulse Ox 95% ; jl7 13:31 BP 135 / 87; Pulse 77; Resp 17; Pulse Ox 99% on Non-rebreather mask; kr3 14:30 BP 121 / 82; Pulse 82; Resp 15; Pulse Ox 96% on R/A; hb ED Course: 12:22 Patient arrived in ED. am2 12:23 Laci Dumont MD is Attending Physician. bs3 12:26 Jeri Cortez, RAYSA is Primary Nurse. kc6 12:30 Patient has correct armband on for positive identification. hb 12:42 Triage completed. jl7 12:42 Arm band placed on right wrist. jl7 13:11 Initial lab(s) drawn, by ED staff, sent to lab. Inserted saline lock: 22 gauge in left jl7 hand, using aseptic technique. Blood collected. Inserted by RAYSA Chatman. 13:15 Campuzano cath inserted, using sterile technique, 16 Fr., returned clear yellow urine. kr3 Patient tolerated well. 13:24 CT Abd/Pelvis - Without Contrast In Process Unspecified. EDMS 13:31 Hallie Quinteros RN is Primary Nurse. kr3 14:45 Campuzano cath removed intact, balloon deflated. kr3 Administered Medications: 12:46 Drug: Ketamine IM 250 mg Route: IM; Site: left deltoid; kr3 14:00 Follow up: Response: No adverse reaction kr3 12:58 Drug: Ketamine IVP 75 mg Route: IVP; Site: left hand; jl7 14:00 Follow up: Response: No adverse reaction kr3 13:31 Drug: NS 0.9% IV 500 ml Route: IV; Rate: 1000 ml/hr; Site: left hand; kr3 13:40 Not Given (Other Intervention Used): Ketamine IM 220 mg IM once kr3 Medication: 14:43 VIS not applicable for this client. Outcome: 16:15 Discharge ordered by . bs3 Signatures: Dispatcher [employer] EDMT Lurdes Jeff RN RN hb Chivo Saeed RN RN jl7 Mary Marin amStephanie Lagos kj1 Hallie Quinteros RN RN [email or web address] Jeri Cortez RN RN kc6 Laci Dumont MD MD bs3 Corrections: (The following items were deleted from the chart) 12:31 12:30 : kc6 kc6 12:39 12:36 130 kg; kj1 kr3 13:30 13:29 Ketamine IM 250 mg IM in left deltoid kr3 kr3 13:40 12:45 Ketamine IM 220 mg IM in left deltoid jl7 kr3 15:09 12:55 Campuzano cath inserted, using sterile technique, 16 Fr., kr3 kr3
[2022-10-08 16:45] VITALS: TEMP 97.9
[2022-10-08 16:47] VITALS: BP 121/82; O2SAT 96
== END 2022-10-08 16:39 | disposition home or self-care (01) ==
LOC: ER 12:20
DX: R30.0 Dysuria (principal); R33.9 Retention of urine, unspecified; Z87.442 Personal history of urinary calculi; I10 Essential (primary) hypertension; Z88.2 Allergy status to sulfonamides; Z88.5 Allergy status to narcotic agent
CPT/HCPCS: 96361; 87088; 85025; 87086; 80048; 36415; 81003; 74176; 51702; 96372; 96374; 99284; J7040

== ENCOUNTER 2024-10-10 14:12 | Inpatient (IN) | payer OTHER ==
[2024-10-10 15:38] LABS: Absolute Eosinophils 0.1 K/uL (0-0.5); Absolute Lymphocytes (CBC) 1.2 K/uL (0.7-4.9); Absolute Monocytes 1.1 K/uL (0.1-1.3); Absolute Neutrophil 5.6 K/uL (1.8-8.0); Basophils % 0.5 % (0-1.3); Eosinophils % 1.1 % (0-4.4); Hematocrit 48.3 % (39.6-49.0); Hemoglobin 15.6 g/dL (13.6-17.9); Lymphocytes % 14.8 % (15.3-44.8); MCH 27.7 pg (27.0-35.0); MCHC 32.3 g/dL (32.0-36.0); MCV 85.7 fL (80-100); MPV 8.2 fL (7.6-11.3); Monocytes % 13.4 % (3.3-12.3); Neutrophils % 70.2 % (41.7-73.7); Nucleated RBC Absolute Count 0.1 (0-0); Nucleated Red Blood Cells % 0.7 % (0-0); Platelets 260 thou/uL (152-406); RBC Red Blood Cell Count 5.63 M/uL (4.33-5.43); Red Cell Distribution Width 15.7 % (12.1-15.2)
--- NOTE | 2024-10-10 15:55 | RAD REPORT ---
Procedure: Chest Single View HISTORY: Cough COMPARISON: 2023 FINDINGS: Mild bilateral pulmonary opacities. No significant pleural effusion noted. The heart is mildly enlarged. IMPRESSION: Mild bilateral pulmonary opacities could represent pulmonary edema or pneumonia
[2024-10-10 16:01] LABS: Albumin 2.7 g/dL (3.4-5.0); Albumin/Globulin Ratio 0.6 (1.1-1.8); Anion Gap 7.8 mEq/L (5.0-15.0); Bilirubin Total 0.2 mg/dL (0.2-1.0); Globulin 4.3 g/dL (2.3-3.5); Magnesium 2.1 mg/dL (1.6-2.4); Potassium 3.8 mEq/L (3.5-5.1); Troponin High Sensitivity 12.3 pg/mL (<58.9)
[2024-10-10] MEDS ORDERED: ALBUTEROL 2.5 MG/3 ML NEB SOL ONE (18:23)
[2024-10-10] MEDS ORDERED: CEFTRIAXONE 1000 MG/VIAL ONE (18:23)
[2024-10-10] MEDS ORDERED: NA CHLORIDE 0.9% 250 ML ONE (18:24)
[2024-10-10] MEDS ORDERED: AZITHROMYCIN 500 MG INJ IVPB ONE (18:24)
[2024-10-10] MEDS ORDERED: NA CHLORIDE 0.9% 50 ML ONE (18:24)
--- NOTE | 2024-10-10 18:33 | ER ---
Nurse's Notes [facility] Name: Navi Harp Age: 49 yrs Sex: Male : 1975 Arrival Date: 10/10/2024 Time: 14:12 Bed 6 Private MD: Diagnosis: Lobar pneumonia, unspecified organism;hypoxia Presentation: 10/10 14:19 Chief complaint: Pt's mother reports generalized weakness, reports slipped and fell in ld1 the bathroom today hitting his head on the cabinets. Pt's mother reports pt has only urinated a very small amount of urine over the last 2 days and last BM was 3 days ago. Pt was noted to void during triage. 14:19 Coronavirus screen: At this time, the client does not indicate any symptoms associated ld1 with coronavirus-19. Ebola Screen: Patient denies travel to an Ebola-affected area in the 21 days before illness onset. Initial Sepsis Screen: Does the patient meet any 2 criteria? No. Patient's initial sepsis screen is negative. Does the patient have a suspected source of infection?. Risk Assessment: Do you want to hurt yourself or someone else? Unable to obtain. Onset of symptoms was October 10, 2024. Care prior to arrival: Glucose check: 88 Oxygen administered. via nasal cannula. 14:19 Acuity: ANABEL 2 ld1 14:19 Method Of Arrival: EMS: [facility] ld1 Historical: - Allergies: 14:19 Sulfa (Sulfonamide Antibiotics); ld1 14:19 tramadol; ld1 - PMHx: 14:19 Anxiety; Autism; Non-verbal; Hypertensive disorder; Kidney stone; Seizure; Non-verbal ld1 (Unknown); Home O2 via NC (Unknown); Leg swelling (Unknown); Spondylolysis (Unknown); - PSHx: 14:19 renal stent; ld1 - Immunization history:: Adult Immunizations unknown. - Infectious Disease History:: Denies. - Social history:: Smoking status: unknown. - History obtained from: mother. Screenin:30 [facility] ED Fall Risk Assessment (Adult) History of falling in the last 3 months, jb4 including since admission No falls in past 3 months (0 pts) Confusion or Disorientation No (0 pts) Intoxicated or Sedated No (0 pts) Impaired Gait Yes (1 pt) Mobility Assist Device Used No (0 pt) Altered Elimination No (0 pt) Score/Fall Risk Level 3 or more points = High Risk Oriented to surroundings, Maintained a safe environment. Abuse screen: Denies threats or abuse. Nutritional screening: On. Tuberculosis screening: No symptoms or risk factors identified. Assessment: 15:30 General: Appears in no apparent distress. ill, obese, Behavior is calm, cooperative. jb4 Pain: Unable to use pain scale. non verbal. Neuro: Level of Consciousness is awake, alert, obeys commands, Oriented to person, nonverbal. Cardiovascular: Patient's skin is warm and dry. Respiratory: Airway is patent Respiratory effort is even, unlabored, Respiratory pattern is regular, symmetrical. Derm: Skin is intact, Skin is pink, warm \T\ dry. Musculoskeletal: Circulation, motion, and sensation intact. Range of motion: intact in all extremities. 17:00 Reassessment: Patient appears in no apparent distress at this time. Patient and/or jb4 family updated on plan of care and expected duration. Pain level reassessed. Pt remains non verbal. Is pleasant and following commands. Family is at the bedside. 18:00 Reassessment: Patient appears in no apparent distress at this time. No changes from jb4 previously documented assessment. Patient and/or family updated on plan of care and expected duration. Pain level reassessed. 18:50 Reassessment: Pt noted to desat on 6L NC, ER physician notified, RT called for High jb4 flow NC. 20:00 Reassessment: Patient appears in no apparent distress at this time. Patient and/or jb4 family updated on plan of care and expected duration. Pain level reassessed. Pt sats sustaining above 90% on 10L NC. Appears more at rest. 21:01 Reassessment: Patient appears in no apparent distress at this time. Patient and/or jb4 family updated on plan of care and expected duration. Pain level reassessed. Mother expressed concern due to pt not voiding like he normally does. 21:30 Reassessment: bladder scan performed, note 795ml of urine in the bladder. Attempted to [facility] call Dr. Allen, no answer, received verbal order from ER physician to perform jaeger catheter. 22:30 Reassessment: Pt resting in bed. Jaeger and IV remain in place, pt's mother is at the 4 bedside. No s/s of pain or distress noted. 23:30 Reassessment: Patient appears in no apparent distress at this time. No changes from jb4 previously documented assessment. Patient and/or family updated on plan of care and expected duration. Pain level reassessed. Vital Signs: 14:19 BP 139 / 89; Pulse 81; Resp 22 S; Temp 99(A); Pulse Ox 91% on 6 lpm NC; ld1 15:30 BP 127 / 80; Pulse 80; Resp 20; Pulse Ox 94% on 4 lpm NC; jb4 16:11 BP 126 / 82; Pulse 74; Resp 18; Pulse Ox 93% on 4 lpm NC; ld1 17:00 BP 118 / 50; Pulse 76; Resp 20; Pulse Ox 92% on 6 lpm NC; jb4 18:00 BP 112 / 97; Pulse 71; Resp 22; Pulse Ox 89% on 6 lpm NC; jb4 19:00 BP 116 / 72; Pulse 72; Resp 20; Pulse Ox 94% on 10 lpm NC; jb4 20:00 BP 115 / 74; Pulse 78; Resp 20; Pulse Ox 96% on 10 lpm NC; jb4 21:03 BP 116 / 77; Pulse 73; Resp 20; Pulse Ox 96% on 10 lpm NC; jb4 22:00 BP 108 / 74; Pulse 73; Resp 22; Pulse Ox 94% on 10 lpm NC; jb4 23:00 BP 122 / 80; Pulse 77; Resp 24; Pulse Ox 95% on 10 lpm NC; jb4 03 00:00 BP 108 / 75; Pulse 72; Resp 20; Temp 98.1; Pulse Ox 93% on 10 lpm NC; jb4 00:40 Weight 146.51 kg (R); Height 5 ft. 2 in. ; jb4 00:40 Body Mass Index 59.08 (146.51 kg, 157.48 cm) jb4 00:40 reported by mother [facility] ED Course: 10/10 14:19 Patient arrived in ED. ld1 14:19 Arm band placed on Patient placed in an exam room, on a stretcher. ld1 14:25 Triage completed. ld1 14:26 Evelyn Villa MD is Attending Physician. sw6 15:30 Patient has correct armband on for positive identification. Bed in low position. Call [facility] light in reach. Side rails up X 1. Provided Education on: plan of care to family.. 15:30 Inserted saline lock: 24 gauge in right hand, using aseptic technique. Blood collected. jb4 15:33 CBC with Diff Sent. jb4 15:33 CMP Sent. jb4 15:33 Lipase Sent. jb4 15:33 Magnesium Sent. jb4 15:33 Troponin High Sensitivity Sent. jb4 15:33 BNP Sent. jb4 15:34 Manuel Hilliard, RN is Primary Nurse. jb4 15:43 CXR XRAY In Process Unspecified. EDMS 18:32 Ivan Allen MD is Hospitalizing Provider. 6 21:01 Inserted saline lock: 22 gauge in right hand, using aseptic technique. jb4 22:59 Jaeger cath inserted, using sterile technique, 14 Fr., by ne, balloon inflated, to jb4 gravity drainage, urine specimen collected. 10/11 00:11 No provider procedures requiring assistance completed. Patient admitted, IV remains in jb4 place. Administered Medications: 10/10 18:20 Not Given (Other Intervention Used): [id number] mg PO once jb4 18:25 Drug: Rocephin - Rocephin (cefTRIAXone) IVPB 1 grams IVPB once over 30 mins; (mix in 50 jb4 mL NS) Route: IVPB; Infused Over: 30 mins; Site: right hand; 18:25 Drug: Albuterol Inhalation 2.5 mg Inhalation once Route: Inhalation; jb4 19:10 Drug: Zithromax IVPB 500 mg IVPB once over 1 hrs; mix in 250 mL NS Route: IVPB; Infused jb4 Over: 1 hrs; Site: right hand; 19:57 Follow up: Paused due to IV being d/c'ed by pt jb4 21:06 Follow up: IV Status: Infusion continued jb4 Medication: 15:30 VIS not applicable for this client. jb4 Intake: Outcome: 18:32 Decision to Hospitalize by Provider. 10/11 00:11 Admitted to ER Hold. Please see [facility] for further documentation. jb4 Condition: stable Discharge instructions given to patient, family, Instructed on the need for admit, Demonstrated understanding of instructions, 16:13 Patient left the ED. ap3 Signatures: Dispatcher [employer] EDVT Manuel Hilliard, RAYSA TABARES jb4 Mary Marcano RN RN ap3 Megan Obregon RN RN ld1 Evelyn Villa MD MD sw6 Corrections: (The following items were deleted from the chart) 00:05 10/10 21:01 Reassessment: Patient appears in no apparent distress at this time. Patient jb4 and/or family updated on plan of care and expected duration. Pain level reassessed. Patient is alert, oriented x 3, equal unlabored respirations, skin warm/dry/pink. jb4 10/11 00:05 10/10 17:00 Reassessment: Patient appears in no apparent distress at this time. Patient jb4 and/or family updated on plan of care and expected duration. Pain level reassessed. Patient is alert, oriented x 3, equal unlabored respirations, skin warm/dry/pink. jb4 10/11 00:05 10/10 18:00 Reassessment: Patient appears in no apparent distress at this time. Patient jb4 and/or family updated on plan of care and expected duration. Pain level reassessed. Patient is alert, oriented x 3, equal unlabored respirations, skin warm/dry/pink. jb4 10/11 00:05 10/10 19:00 Reassessment: Patient appears in no apparent distress at this time. Patient jb4 and/or family updated on plan of care and expected duration. Pain level reassessed. Patient is alert, oriented x 3, equal unlabored respirations, skin warm/dry/pink. jb4 10/11 00:06 10/10 19:00 Reassessment: Patient appears in no apparent distress at this time. No jb4 changes from previously documented assessment. Patient and/or family updated on plan of care and expected duration. Pain level reassessed. jb4 10/11 00:06 10/10 20:00 Reassessment: Patient appears in no apparent distress at this time. Patient jb4 and/or family updated on plan of care and expected duration. Pain level reassessed. Patient is alert, oriented x 3, equal unlabored respirations, skin warm/dry/pink. jb4
--- NOTE | 2024-10-10 18:33 | EDPHYS ---
Physician Documentation [facility] Name: Navi Harp Age: 49 yrs Sex: Male : 1975 Arrival Date: 10/10/2024 Time: 14:12 Bed 6 Private MD: ED Physician Evelyn Villa HPI: 10/10 18:32 This 49 yrs old Male presents to ER via EMS with complaints of General sw6 Weakness, Fall Injury. 14:37 The patient presents from home with EMS and mom for evaluation for generalized weakness sw6 since Monday. Today is afternoon. Mom reports he was seen by his PCP on Monday and was started on blood pressure medication. He was then sent to the emergency department in [place] where he was diagnosed with a UTI and started on antibiotics. He was also found to have a slightly lower potassium level and this was replaced at there. He was discharged home where mom reports she has been having to help assist him with eating and she normally does not. She reports today he has not urinated. He also had a slip and fall earlier today which is what prompted her to call 911. He is not taking any blood thinners. He does have a history of autism and is nonverbal at baseline. He also wears 5 L of oxygen at all times according to mom. Mom is concerned that his blood pressure medications are too strong for him. The patient is unable to find information himself. Here for evaluation.. Historical: - Allergies: 14:19 Sulfa (Sulfonamide Antibiotics); ld1 14:19 tramadol; ld1 - PMHx: 14:19 Anxiety; Autism; Non-verbal; Hypertensive disorder; Kidney stone; Seizure; Non-verbal ld1 (Unknown); Home O2 via NC (Unknown); Leg swelling (Unknown); Spondylolysis (Unknown); - PSHx: 14:19 renal stent; ld1 - Immunization history:: Adult Immunizations unknown. - Infectious Disease History:: Denies. - Social history:: Smoking status: unknown. - History obtained from: mother. ROS: 14:39 Unable to obtain ROS due to The patient is nonverbal at baseline, sw6 18:32 Constitutional: Negative for fever, chills, and weight loss, sw6 Exam: 14:39 Neck: Trachea midline, no thyromegaly or masses palpated, and no cervical sw6 lymphadenopathy. Supple, full range of motion without nuchal rigidity, or vertebral point tenderness. No Meningismus. Cardiovascular: Regular rate and rhythm with a normal S1 and S2. No gallops, murmurs, or rubs. Normal PMI, no JVD. No pulse deficits. Respiratory: Lungs have equal breath sounds bilaterally, clear to auscultation and percussion. No rales, rhonchi or wheezes noted. No increased work of breathing, no retractions or nasal flaring. Abdomen/GI: Soft, non-tender, with normal bowel sounds. No distension or tympany. No guarding or rebound. No evidence of tenderness throughout. 14:39 Constitutional: The patient appears awake, non-diaphoretic, obese, Vital Signs: 14:19 BP 139 / 89; Pulse 81; Resp 22 S; Temp 99(A); Pulse Ox 91% on 6 lpm NC; ld1 15:30 BP 127 / 80; Pulse 80; Resp 20; Pulse Ox 94% on 4 lpm NC; jb4 16:11 BP 126 / 82; Pulse 74; Resp 18; Pulse Ox 93% on 4 lpm NC; ld1 17:00 BP 118 / 50; Pulse 76; Resp 20; Pulse Ox 92% on 6 lpm NC; jb4 18:00 BP 112 / 97; Pulse 71; Resp 22; Pulse Ox 89% on 6 lpm NC; jb4 19:00 BP 116 / 72; Pulse 72; Resp 20; Pulse Ox 94% on 10 lpm NC; jb4 20:00 BP 115 / 74; Pulse 78; Resp 20; Pulse Ox 96% on 10 lpm NC; jb4 21:03 BP 116 / 77; Pulse 73; Resp 20; Pulse Ox 96% on 10 lpm NC; jb4 22:00 BP 108 / 74; Pulse 73; Resp 22; Pulse Ox 94% on 10 lpm NC; jb4 23:00 BP 122 / 80; Pulse 77; Resp 24; Pulse Ox 95% on 10 lpm NC; jb4 10/11 00:00 BP 108 / 75; Pulse 72; Resp 20; Temp 98.1; Pulse Ox 93% on 10 lpm NC; jb4 00:40 Weight 146.51 kg (R); Height 5 ft. 2 in. ; jb4 00:40 Body Mass Index 59.08 (146.51 kg, 157.48 cm) jb4 00:40 reported by mother jb4 MDM: 10/10 14:26 Medical Screening Exam initiated 14:39 Differential diagnosis: abrasion, closed head injury, contusion, Electrolyte sw6 abnormality. Data reviewed: vital signs, nurses notes, EMS record. 18:32 Consideration of Admission/Observation Patient was admitted/placed on observation. Management of patient was discussed with the following: Hospitalist: Dr. Allen. ED course: The patient is doing well here in the ER. He does wear 5 L of oxygen at baseline however has needed to be increased to 8 L to maintain saturations. His chest x-ray is concerning for pneumonia. His laboratory studies are unremarkable including normal magnesium and potassium levels. He was given IV antibiotics here in the ER. He does require admission for continued management. Spoke with Dr. Allen with the internal medicine service and the patient was accepted for admission for continued management.. 10/10 14:37 Order name: CBC with Diff; Complete Time: 16:21 6 10/10 16:21 Interpretation: Within normal limits. 10/10 14:37 Order name: CMP; Complete Time: 16:21 sw6 10/10 16:22 Interpretation: Abnormal: HYPOALBUMINEMIA. 10/10 14:37 Order name: Lipase; Complete Time: 16:21 sw6 10/10 16:22 Interpretation: Within normal limits. 10/10 14:37 Order name: Magnesium; Complete Time: 16:21 sw6 10/10 16:22 Interpretation: Within normal limits. 10/10 14:37 Order name: Troponin High Sensitivity; Complete Time: 16:21 sw6 10/10 16:22 Interpretation: Within normal limits. 10/10 14:37 Order name: BNP; Complete Time: 16:21 sw6 10/10 16:22 Interpretation: Within normal limits. [facility] 10/10 19:15 Order name: Urinalysis w/ reflexes EDMS 10/10 19:15 Order name: CBC with Automated Diff EDMS 10/10 19:15 Order name: CBC with Automated Diff EDMS 10/10 19:15 Order name: Comprehensive Metabolic Panel EDMS 10/10 19:15 Order name: Comprehensive Metabolic Panel EDMS 10/11 15:48 Order name: ABG Arterial Blood Gas EDMS 10/10 14:37 Order name: CXR XRAY; Complete Time: 16:21 [facility] 10/11 14:25 Order name: RAD EDNM 10/10 19:15 Order name: Physical Therapy Consult [facility] 10/10 14:37 Order name: IV Saline Lock; Complete Time: 15:33 [facility] 10/10 14:37 Order name: Labs collected and sent; Complete Time: 15:33 [facility] 10/10 14:37 Order name: Oxygen Per Protocol; Complete Time: 15:33 [facility] 10/10 23:00 Order name: Campuzano; Complete Time: 23:00 jb4 Administered Medications: 18:20 Not Given (Other Intervention Used): [id number] mg PO once jb4 18:25 Drug: Rocephin - Rocephin (cefTRIAXone) IVPB 1 grams IVPB once over 30 mins; (mix in 50 jb4 mL NS) Route: IVPB; Infused Over: 30 mins; Site: right hand; 18:25 Drug: Albuterol Inhalation 2.5 mg Inhalation once Route: Inhalation; jb4 19:10 Drug: Zithromax IVPB 500 mg IVPB once over 1 hrs; mix in 250 mL NS Route: IVPB; Infused jb4 Over: 1 hrs; Site: right hand; 19:57 Follow up: Paused due to IV being d/c'ed by pt jb4 21:06 Follow up: IV Status: Infusion continued jb4 Disposition Summary: 10/10/24 18:32 Hospitalization Ordered Notes: Hospitalization Status: Inpatient Admission [facility] Provider: Ivan Allen [facility] Condition: Fair [facility] Problem: new [facility] Symptoms: are unchanged [facility] Bed/Room Type: Standard [facility] Location: Telemetry/MedSurg (Inpatient)(10/11/24 14:29) Room Assignment: 224(10/11/24 14:29) hb Diagnosis - Lobar pneumonia, unspecified organism sw6 - hypoxia [facility] Forms: - Medication Reconciliation Form - SBAR form 6 - Leadership Thank You Letter [facility] Signatures: Dispatcher [employer] Lurdes Ko RN RN hb Manuel Hilliard RN RN jb4 Mary Marcano RN RN ap3 Megan Obregon RN RN iker1 Bernarda Padilla rv1 Evelyn Villa MD MD 6 Corrections: (The following items were deleted from the chart) 14:37 14:37 CBC+H.LAB.BRZ ordered. EDMS EDMS 14:37 14:37 COMPREHENSIVE METABOLIC PANEL+C.LAB.BRZ ordered. EDMS EDMS 14:37 14:37 LIPASE+C.LAB.BRZ ordered. EDMS EDMS 14:37 14:37 MAGNESIUM+C.LAB.BRZ ordered. EDMS EDMS 14:37 14:37 Troponin High Sensitivity+C.LAB.BRZ ordered. EDMS EDMS 14:37 14:37 PROBNP+C.LAB.BRZ ordered. EDMS EDMS 15:06 14:37 Head Brain Wo Cont+CT.RAD.BRZ ordered. EDMS EDMS 21:47 18:32 Telemetry/MedSurg (Inpatient) [facility] rv1 21:47 18:32 [facility] rv1 10/11 14:29 10/10 21:47 BR ER HOLD rv1 hb 10/11 14:10/10 21:47 ERHOLD- rv1 hb
--- NOTE | 2024-10-10 19:08 | P.HP ---
Certification for Inpatient Patient admitted to: Inpatient With expected LOS: >2 Midnights Practitioner: I am a practitioner with admitting privileges, knowledge of patient current condition, hospital course, and medical plan of care. Services: Services provided to patient in accordance with Admission requirements found in Title 42 Section 412.3 of the Code of Federal Regulations Patient History Date of Service: 10/11/24 Reason for admission: Generalized weakness History of Present Illness: 49 yrs old Male with past medical history of autism, anxiety, nonverbal, hypertension, renal stones, seizure disorder, chronic hypoxic respiratory failure, spondylosis who was brought to ER with generalized weakness. It was reported as he was seen by his PCP on Monday and was started on blood pressure medication. He was then sent to the emergency department in [place] where he was diagnosed with a UTI and started on antibiotics. He was discharged home where mom reports she has been having to help assist him with eating and she normally does not. She reports today he has not urinated. He also had a slip and fall earlier today which is what prompted her to call 911. He does have a history of autism and is nonverbal at baseline. He also wears 5 L of oxygen at all times according to mom Patient was assessed in the ER and is admitted for further management Allergies Sulfa (Sulfonamide Antibiotics) Adverse Reaction (Verified 09/06/22 08:02) Nausea/Vomiting tramadol Adverse Reaction (Verified 09/06/22 08:02) very depressed, lethargic Home medications list reviewed: Yes Home Medications: LORazepam [Ativan*] 2 mg PO DAILY WITH BREAKFAST 07/22/15 LORazepam [Ativan*] 4 mg PO BEDTIME 07/22/15 Trazodone [Desyrel*] 225 mg PO BEDTIME 07/22/15 Buspirone HCl [Buspar] 20 mg PO BEDTIME 03/30/22 Acetaminophen with Codeine [Acetaminophen-Cod #4 Tablet] 1 each PO BIDP PRN 08/31/22 Cenobamate [Xcopri] 200 mg PO DAILY 08/31/22 Duloxetine HCl [Cymbalta] 2 cap PO BEDTIME 08/31/22 Famotidine [Pepcid] 40 mg PO BEDTIME 08/31/22 L.acidoph,Paracasei, B.lactis [Probiotic] 6 each PO DAILY 08/31/22 Multivitamin 1 each PO DAILY 08/31/22 Chidester-3 Fatty Acids [Chidester-3] 2 cap PO DAILY 08/31/22 Quetiapine Fumarate [Seroquel] 2 tab PO BEDTIME 08/31/22 Tamsulosin HCl 0.4 mg PO DAILY 08/31/22 hydrOXYzine HCL [Atarax] 100 mg PO DAILY 08/31/22 hydroCHLOROthiazide [Hydrochlorothiazide] 25 mg PO BEDTIME 08/31/22 Cefpodoxime Proxetil 200 mg PO BID #28 tab 09/14/22 - Past Medical/Surgical History Past Medical History: Reviewed- Non-Contributory -: Autism -: Seizure disorder -: Hypertension Past Surgical History: Reviewed- Non-Contributory -: Previous ureteral stent Psychosocial/ Personal History: Patient lives at home with his mother - Social History Smoking Status: Never smoker Alcohol use: No CD- Drugs: No Caffeine use: No Review of Systems is unable to be obtained Physical Examination - Vital Signs Temperature: 98.1 F Blood Pressure: 108/76 Pulse: 73 Respirations: 18 Pulse Ox (%): 93 - Physical Exam General: Alert, Obese, Other (non verbal ) HEENT: Atraumatic, Normocephalic Neck: Supple, No Thyromegaly Respiratory: Clear to auscultation bilaterally, Normal air movement Cardiovascular: Regular rate/rhythm, Normal S1 S2 Capillary refill: <2 Seconds Gastrointestinal: Soft and benign, W/out hepatosplenomegaly Musculoskeletal: No clubbing, No swelling Integumentary: No rashes, No tenderness/swelling Neurological: Other (Alert awake) Lymphatics: No axilla or inguinal lymphadenopathy - Studies Laboratory Data (last 24 hrs) 10/10/24 10/10/24 15:30 15:30 WBC 8.00 Hgb 15.6 Hct 48.3 Plt Count 260 Sodium 136 Potassium 3.8 BUN 26 H Creatinine 1.23 Glucose 117 H Magnesium 2.1 Total Bilirubin 0.2 AST 25 ALT 31 Alkaline Phosphatase 92 Lipase 27 Assessment and Plan - Plan Bibasilar pneumonia History of autism Anxiety Hypertension Seizure disorder Acute on chronic hypoxic respiratory failure Nonverbal Obesity Plan Started on IV antibiotic Monitor closely under telemetry Oxygen supplementation Will try to wean down oxygen requirement Will repeat x-ray chest in a.m. Continue home medications and titrate as needed Supportive management Advise lifestyle modification GI/DVT prophylaxis Advanced directive full code Discharge Plan: Home Plan to discharge in: 48 Hours - Advance Directives Does patient have a Living Will: No Does patient have a Durable POA for Healthcare: No - Code Status/Comfort Care Code Status: Full Code Time Spent Managing Pts Care (In Minutes): 54
[2024-10-10] MEDS ORDERED: ONDANSETRON 4 MG/2 ML VIAL IV PRN (19:10)
[2024-10-10] MEDS ORDERED: ACETAMINOPHEN 325 MG TABLET PO PRN (19:10)
[2024-10-10] MEDS: NA CHLORIDE 0.9% 1,000 ML IV SCH (23:00)
[2024-10-10] MEDS ORDERED: NA CHLORIDE 0.9% 1,000 ML ONE (23:02)
[2024-10-10] MEDS ORDERED: CODEINE 30MG/APAP 300MG TAB PO PRN (23:21)
[2024-10-11 00:53] VITALS: BMI 59.1
[2024-10-11 00:54] LABS: Specific Gravity 1.012 (1.005-1.030); Sqamous Epithelial <5 /HPF (None Seen); Urine Bacteria 20-50 /HPF (<20); Urine Bilirubin NEGATIVE (Negative); Urine Blood Negative (Negative); Urine Clarity Turbid (Clear); Urine Color Light-Yellow (Yellow); Urine Crystals Unidentified Few /HPF (None Seen); Urine Culture Reflex Order REFLEXED; Urine Glucose NEGATIVE (Negative); Urine Ketones NEGATIVE (Negative); Urine Microscopic Reflex YN ORDER UMIC; Urine Mucus Slight /HPF (None Seen); Urine Nitrite NEGATIVE (Negative); Urine Protein NEGATIVE (Negative); Urine RBC <5 /HPF (None Seen); Urine Urobilinogen Normal (Normal); Urine WBC 20-50 /HPF (<5); Urine pH 5.5 (5.0-7.0)
[2024-10-11 05:08] LABS: Absolute Eosinophils 0.1 K/uL (0-0.5); Absolute Lymphocytes (CBC) 1.4 K/uL (0.7-4.9); Absolute Monocytes 0.9 K/uL (0.1-1.3); Basophils % 0.2 % (0-1.3); Eosinophils % 1.1 % (0-4.4); Hematocrit 48.2 % (39.6-49.0); Hemoglobin 15.5 g/dL (13.6-17.9); Lymphocytes % 19.4 % (15.3-44.8); MCH 27.7 pg (27.0-35.0); MCHC 32.2 g/dL (32.0-36.0); MCV 86.1 fL (80-100); Monocytes % 11.9 % (3.3-12.3); Neutrophils % 67.4 % (41.7-73.7); Nucleated Red Blood Cells % 0.2 % (0-0); Platelets 252 thou/uL (152-406); Red Cell Distribution Width 15.8 % (12.1-15.2)
[2024-10-11 06:05] LABS: ALT/SGPT 31 U/L (16-61); Albumin 2.8 g/dL (3.4-5.0); Albumin/Globulin Ratio 0.7 (1.1-1.8); Alkaline Phosphatase 93 U/L (45-117); Anion Gap 6.9 mEq/L (5.0-15.0); BUN Blood Urea Nitrogen 18 mg/dL (7-18); Bilirubin Total 0.2 mg/dL (0.2-1.0); Globulin 4.2 g/dL (2.3-3.5); Glomerular Filtration Rate 93 ml/min (=/>90); Glucose Level 105 mg/dL (74-106); Sodium Level 140 mEq/L (136-145)
[2024-10-11 06:26] LABS: AST/SGOT 25 U/L (15-37); Bicarbonate > 45 mEq/L (21-32); Potassium 3.9 mEq/L (3.5-5.1)
[2024-10-11] MEDS: LORAZEPAM 1 MG TABLET PO SCH (08:00)
[2024-10-11] MEDS ORDERED: NA CHLORIDE 0.9% 1,000 ML ONE (08:06)
[2024-10-11] MEDS ORDERED: CEFTRIAXONE 2000 MG/VIAL ONE (08:07)
[2024-10-11] MEDS ORDERED: NA CHLORIDE 0.9% 50 ML ONE (08:07)
[2024-10-11] MEDS: hydrOXYzine HCL 25 MG TAB PO SCH (08:16)
[2024-10-11] MEDS: CENOBAMATE 200 MG PO SCH (08:17)
[2024-10-11] MEDS: MULTIVITAMIN TAB PO SCH (08:17)
[2024-10-11] MEDS: TAMSULOSIN 0.4 MG SR CAP PO SCH (08:17)
[2024-10-11] MEDS: DOCOSAHEXANOIC AC/EPA 1000 MG PO SCH (08:17)
[2024-10-11] MEDS: CEFTRIAXONE 2,000 MG in NA CHLORIDE 0.9% 100 ML IV SCH (08:18)
[2024-10-11] MEDS: LACTOBACILLUS/ACIDOPHILUS TAB PO SCH (09:00)
[2024-10-11] MEDS: AZITHROMYCIN IV 500 MG in NA CHLORIDE 0.9% 250 ML IVPB SCH (09:00)
[2024-10-11] MEDS ORDERED: AZITHROMYCIN 500 MG INJ IVPB ONE (09:08)
[2024-10-11] MEDS ORDERED: NA CHLORIDE 0.9% 250 ML ONE (09:08)
[2024-10-11] MEDS: BISACODYL 10 MG RECTAL SUPP PR ONE (13:56)
[2024-10-11] MEDS: MAGNESIUM CITRATE 300 ML BOT PO SCH (14:00)
--- NOTE | 2024-10-11 14:25 | RAD REPORT ---
EXAM: XR of the abdomen HISTORY: Abdominal pain Constipation COMPARISON: None FINDINGS: XR of the abdomen shows a moderate right-sided stool retention.. Large staghorn calculus le ft kidney. Rounded oblong calculus right kidney with possible calculus along the course of the right ureter noted. Findings of ankylosing spondylitis noted involving the lumbar spine.
[2024-10-11 15:46] LABS: Arterial Blood Carboxyhemoglob 1.2 % (0-1.5); Blood Gas Oxyhemoglobin 89.8 % (94-97); Blood O2 Saturation 92.6 % (92-98.5)
[2024-10-11 15:47] LABS: Blood Gas THB 15.8 g/dl (12-18)
--- NOTE | 2024-10-11 16:30 | P.PN ---
Subjective Date of Service: 10/11/24 Chief Complaint: Generalized weakness Patient remains somnolent. Mother reports patient is nonverbal but usually awake. No reported diarrhea or vomiting. Physical Examination - Vital Signs Temperature: 98.4 F Blood Pressure: 116/74 Pulse: 76 Respirations: 19 Pulse Ox (%): 93 Assessment And Plan - Plan Physical examination General: Alert and oriented x3, NAD, HEENT: Conjunctiva not pale, anicteric sclera Neck: Supple, no elevated JVD Heart: Heart sounds 1 and 2 normal, regular rhythm, normal rate, no pedal edema Lungs: Clear to auscultation bilaterally, adequate breath sounds bilaterally, no rhonchi or crackles. Abdomen: Soft, nondistended, nontender, normal bowel sounds. Extremities: No tenderness, no deformity Skin: Normal skin turgor, no rash, no nodules or ulcers. Neuro: No focal motor deficit. Normal speech. Psychiatry: Normal mood, no agitation. Diagnosis Obesity hypoventilation Restrictive lung disease secondary to scoliosis Acute on chronic respiratory failure with hypoxia and hypercapnia History of autism Anxiety Hypertension Seizure disorder Nonverbal Plan Obesity hypoventilation Restrictive lung disease secondary to scoliosis Acute on chronic respiratory failure with hypoxia and hypercapnia Arterial blood gas shows significant CO2 retention. BiPAP therapy Serial blood gas Bronchodilators. Prop up head in bed. History of autism Anxiety Hypertension Seizure disorder Nonverbal Validate, reconcile and continue home medications. Hold lorazepam and hydroxyzine which can be quite sedating. DVT prophylaxis: Lovenox Advanced directive: full code
[2024-10-11] MEDS: QUETIAPINE 100MG TAB FT SCH (21:00)
[2024-10-11] MEDS ORDERED: LORAZEPAM 1 MG TABLET PO SCH (21:00)
[2024-10-11] MEDS: TRAZODONE 150 MG TAB PO SCH (21:00)
[2024-10-11] MEDS: BUSPIRONE HCL 5 MG TABLET PO SCH (22:21)
[2024-10-11] MEDS: FAMOTIDINE 20 MG TAB PO SCH (22:21)
[2024-10-11] MEDS: DULOXETINE 30 MG CAP PO SCH (22:21)
[2024-10-12 05:49] LABS: Absolute Eosinophils 0.2 K/uL (0-0.5); Absolute Lymphocytes (CBC) 1.1 K/uL (0.7-4.9); Absolute Monocytes 1.1 K/uL (0.1-1.3); Absolute Neutrophil 7.5 K/uL (1.8-8.0); Basophils % 0.1 % (0-1.3); Eosinophils % 1.6 % (0-4.4); Hematocrit 48.4 % (39.6-49.0); Hemoglobin 15.9 g/dL (13.6-17.9); Lymphocytes % 11.3 % (15.3-44.8); MCH 28.1 pg (27.0-35.0); MCHC 32.9 g/dL (32.0-36.0); MCV 85.3 fL (80-100); MPV 8.3 fL (7.6-11.3); Monocytes % 10.9 % (3.3-12.3); Neutrophils % 76.1 % (41.7-73.7); Nucleated Red Blood Cells % 0.1 % (0-0); Platelets 260 thou/uL (152-406); RBC Red Blood Cell Count 5.67 M/uL (4.33-5.43)
[2024-10-12 06:23] LABS: BUN Blood Urea Nitrogen 14 mg/dL (7-18); Glomerular Filtration Rate 94 ml/min (=/>90); Glucose Level 111 mg/dL (74-106); Potassium 3.4 mEq/L (3.5-5.1); Sodium Level 137 mEq/L (136-145)
[2024-10-12 06:24] LABS: Anion Gap 4.4 mEq/L (5.0-15.0); Bicarbonate > 45 mEq/L (21-32)
[2024-10-12] MEDS: POTASSIUM CL SA 10 MEQ TAB PO ONE (10:23)
[2024-10-12] MEDS: ENOXAPARIN 40 MG/0.4 ML SQ SCH (10:23)
--- NOTE | 2024-10-12 16:59 | P.PN ---
Subjective Date of Service: 10/12/24 Chief Complaint: Generalized weakness Patient is more awake today and noted to be on high flow oxygen. Patient is nonverbal. Nursing staff report that he has been taking a panel monitor off. Nursing staff report he did not tolerate the BiPAP and was taking it off. Physical Examination - Vital Signs Temperature: 98.2 F Blood Pressure: 181/72 Pulse: 90 Respirations: 18 Pulse Ox (%): 90 Assessment And Plan - Plan Physical examination General: Awake, nonverbal, NAD, morbidly obese Neck: Supple, no elevated JVD Heart: Heart sounds 1 and 2 normal, regular rhythm, normal rate, no pedal edema Lungs: Clear to auscultation bilaterally, adequate breath sounds bilaterally, no rhonchi or crackles. Abdomen: Soft, nondistended, nontender, normal bowel sounds. Extremities: No tenderness. Skin: Normal skin turgor, no rash, no nodules or ulcers. Neuro: No focal motor deficit. Normal speech. Psychiatry: No agitation. Diagnosis Obesity hypoventilation Restrictive lung disease secondary to scoliosis Acute on chronic respiratory failure with hypoxia and hypercapnia History of autism Anxiety Hypertension Seizure disorder Nonverbal Functional constipation Plan Obesity hypoventilation Restrictive lung disease secondary to scoliosis Acute on chronic respiratory failure with hypoxia and hypercapnia Arterial blood gas shows significant CO2 retention. BiPAP therapy Serial blood gas Bronchodilators. Prop up head in bed. History of autism Anxiety Hypertension Seizure disorder Nonverbal Validate, reconcile and continue home medications. Hold lorazepam and hydroxyzine which can be quite sedating. 10/12 Bicarb level checked as part of renal function is still significantly elevated suggesting renal compensation due to persistent CO2 retention, however patient is more awake and interactive today. According to report, patient have had multiple bowel movements since admission which should help with breathing excusions. Continue bronchodilators. BiPAP as tolerated. Limit supplemental oxygen to keep SaO2 between 88 to 92% to preserve hypoxic drive. Continue other home medications. Avoid psychoactive medications. DVT prophylaxis: Lovenox Advanced directive: full code
[2024-10-13 06:56] LABS: Albumin 2.7 g/dL (3.4-5.0); Anion Gap 5.9 mEq/L (5.0-15.0); Phosphorus 4.2 mg/dL (2.5-4.9); Potassium 3.9 mEq/L (3.5-5.1)
--- NOTE | 2024-10-13 15:55 | P.PN ---
Subjective Date of Service: 10/13/24 Chief Complaint: Generalized weakness No major changes from yesterday. Patient is nonverbal. 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 Patient has been tolerating 6 L of oxygen by nasal cannula. He is on 5 L by nasal cannula at baseline. Physical Examination - Vital Signs Temperature: 98.1 F Blood Pressure: 166/94 Pulse: 86 Respirations: 16 Pulse Ox (%): 95 Assessment And Plan - Plan Physical examination General: Awake, nonverbal, NAD, morbidly obese Neck: Supple, no elevated JVD Heart: Heart sounds 1 and 2 normal, regular rhythm, normal rate, no pedal edema Lungs: Clear to auscultation bilaterally, adequate breath sounds bilaterally, no rhonchi or crackles. Abdomen: Soft, nondistended, nontender, normal bowel sounds. Extremities: No tenderness. Skin: Normal skin turgor, no rash, no nodules or ulcers. Neuro: No focal motor deficit. Normal speech. Psychiatry: No agitation. Diagnosis Obesity hypoventilation Restrictive lung disease secondary to scoliosis Acute on chronic respiratory failure with hypoxia and hypercapnia History of autism Anxiety Hypertension Seizure disorder Nonverbal Functional constipation Plan Obesity hypoventilation Restrictive lung disease secondary to scoliosis Acute on chronic respiratory failure with hypoxia and hypercapnia Arterial blood gas shows significant CO2 retention. BiPAP therapy Serial blood gas Bronchodilators. Prop up head in bed. History of autism Anxiety Hypertension Seizure disorder Nonverbal Validate, reconcile and continue home medications. Hold lorazepam and hydroxyzine which can be quite sedating. 10/12 Bicarb level checked as part of renal function is still significantly elevated suggesting renal compensation due to persistent CO2 retention, however patient is more awake and interactive today. According to report, patient have had multiple bowel movements since admission which should help with breathing excusions. Continue bronchodilators. BiPAP as tolerated. Limit supplemental oxygen to keep SaO2 between 88 to 92% to preserve hypoxic drive. Continue other home medications. Avoid psychoactive medications. 10/13 Bicarb level in BMP is improving. Patient keeps removing the telemetry leads, so it is discontinued. Patient did not tolerate BiPAP and will take care of. He sometimes takes off his oxygen. Urine culture is growing enterobacteria sensitive to Levaquin. Antibiotics changed to oral Levaquin. Pulmonary consulted to assist with management. Continue to hold psychoactive medications. Diet as tolerated. DVT prophylaxis: Lovenox Advanced directive: full code
[2024-10-13] MEDS: levoFLOXacin 750 MG TAB PO SCH (16:16)
[2024-10-14] MEDS: POTASSIUM CL SA 10 MEQ TAB PO ONE (07:47)
[2024-10-14 08:33] LABS: Albumin 2.4 g/dL (3.4-5.0); Phosphorus 2.6 mg/dL (2.5-4.9)
[2024-10-14 09:35] VITALS: O2SAT 95
[2024-10-14 12:25] VITALS: BP 146/89; TEMP 98.2
--- NOTE | 2024-10-14 12:31 | P.CNS ---
Date of Consult: 10/14/24 Reason for Consult: Respiratory failure Chief Complaint: Respiratory failure History of Present Illness: Patient is 49 years of age with a history of morbid obesity ankylosing spondylitis seizures nonverbal with a urinary tract infection mother at the bedside and drink and was apparently admitted to [facility] in February last year tried BiPAP and he refused Allergies Sulfa (Sulfonamide Antibiotics) Adverse Reaction (Verified 09/06/22 08:02) Nausea/Vomiting tramadol Adverse Reaction (Verified 09/06/22 08:02) very depressed, lethargic Home Medications: LORazepam [Ativan*] 2 mg PO DAILY WITH BREAKFAST 07/22/15 Trazodone [Desyrel*] 225 mg PO BEDTIME 07/22/15 Buspirone HCl [Buspar] 10 mg PO BID 03/30/22 Acetaminophen with Codeine [Acetaminophen-Cod #4 Tablet] 1 each PO BIDP PRN 08/31/22 Cenobamate [Xcopri] 150 mg PO DAILY 08/31/22 Duloxetine HCl [Cymbalta] 40 mg PO BID 08/31/22 Famotidine [Pepcid] 40 mg PO BEDTIME 08/31/22 L.acidoph,Paracasei, B.lactis [Probiotic] 6 each PO DAILY 08/31/22 Multivitamin 1 each PO DAILY 08/31/22 Orlando-3 Fatty Acids [Orlando-3] 2 cap PO DAILY 08/31/22 Quetiapine Fumarate [Seroquel] 2 tab PO BEDTIME 08/31/22 Tamsulosin HCl 0.4 mg PO DAILY 08/31/22 hydrOXYzine HCL [Atarax] 100 mg PO DAILY 08/31/22 hydroCHLOROthiazide [Hydrochlorothiazide] 25 mg PO BEDTIME 08/31/22 Cefdinir [Omnicef] 300 mg PO BID 10/11/24 Famotidine [Pepcid] 40 mg BEDTIME 10/11/24 Loperamide HCl [Loperamide] 2 mg PO TID 10/11/24 Metoprolol Succinate [Toprol Xl] 25 mg PO DAILY 10/11/24 Montelukast [Singulair] 10 mg PO BEDTIME 10/11/24 lisinopriL [Lisinopril] 5 mg PO DAILY 10/11/24 - Past Medical/Surgical History -: Autism -: Seizure disorder -: Hypertension -: Previous ureteral stent Psychosocial/ Personal History: Patient lives at home with his mother - Social History Smoking Status: Unknown if ever smoked Alcohol use: No CD- Drugs: No Caffeine use: No Place of Residence: Home Review of Systems is unable to be obtained Physical Examination Temp Pulse Resp BP Pulse Ox 98.2 F 85 16 146/89 H 90 L 10/14/24 12:00 10/14/24 12:00 10/14/24 12:00 10/14/24 12:00 10/14/24 12:00 General: Alert Respiratory: Clear to auscultation bilaterally, Diminished Cardiovascular: No edema, Regular rate/rhythm, Normal S1 S2 Gastrointestinal: Normal bowel sounds, Soft and benign - Problems (1) Respiratory failure with hypoxia and hypercapnia Current Visit: No Status: Acute Plan: Patient is 49 years of age admitted with a urinary tract infection chronic hypoxic hypercapnic respiratory failure has refused BiPAP in the past cannot wear a mask according to the mother he has morbid obesity bicarbonate level is elevated and adding some Diamox for now loss injections patient's mother to contact primary care doctor his bicarbonate level is decreasing DC IV fluids for now patient's Enterobacter in the urine in the urine is responsive to levofloxacin labs chemistries reviewed he has got no fever or white count patient has O2 at home and he is also refused any procedures including tracheostomy patient has ankylosing spondylitis and very diminished lung volume Qualifiers: Chronicity: chronic Qualified Code(s): J96.11 - Chronic respiratory failure with hypoxia; J96.12 - Chronic respiratory failure with hypercapnia
--- NOTE | 2024-10-14 12:37 | CON ---
History Of Present Illness: This is a 49-year-old male. I was consulted for urinary tract infection. He has significant past medical history of autism, anxiety, nonverbal, hypertension, renal stones, seizure disorder, chronic hypoxic respiratory failure, spondylosis, brought into the emergency room with weakness. He was seen by a PCP on Monday. The patient is unable to communicate. Most of the history was obtained through medical records and the staff. Past Medical History: As per HPI. Social History: Nonsmoker. Nondrinker. Family History: Noncontributory. Medications: Levaquin. See MARs for other medications. Allergies: SULFA DRUGS, TRAMADOL. Review of Systems: Unable to obtain. Physical Examination: General: This is a 49-year-old male, lying in bed, not in any acute cardiopulmonary distress. Vital Signs: Temperature 98, pulse 80, respirations 14, blood pressure 155/89. HEENT: Unremarkable. Neck: Supple. Lungs: Basal crackles. Heart: S1, S2. Regular. Abdomen: Soft, nontender. Bowel sounds present. Extremities: 2+ edema. Laboratory Data: Shows WBC 9.8, hemoglobin 15.9, platelets 260. Chemistry shows BUN of 15, creatinine 0.7, albumin level is 2.4. Bactrim, gentamicin, Levaquin, tobramycin, and meropenem. Assessment And Plan: Urinary tract infection secondary to Enterobacter cloacae in a 49-year-old male with significant history of autism. Moderate protein-calorie malnourishment. Monitor signs of infection with WBC and fever trends. Thank you, Dr. Newton, for consult. NF/MODL Voice ID: [id number] Report ID: [id number] AZAEL
[2024-10-14] MEDS: ACETAZOLAMIDE 500 MG IV IV SCH (13:00)
--- NOTE | 2024-10-14 14:04 | P.DS ---
Admission Date: 10/10/24 Discharge Date: 10/14/24 Disposition: DC HOME/HOME HEALTH CARE Discharge Condition: FAIR Reason for Admission: Respiratory failure Brief History of Present Illness: 49 yrs old Male with past medical history of autism, anxiety, nonverbal, hypertension, renal stones, seizure disorder, chronic hypoxic respiratory failure, spondylosis who was brought to ER with generalized weakness. It was reported as he was seen by his PCP on Monday and was started on blood pressure medication. He was then sent to the emergency department in [place] where he was diagnosed with a UTI and started on antibiotics. He was discharged home where mom reports she has been having to help assist him with eating and she normally does not. He also had a slip and fall earlier which is what prompted her to call 911. He does have a history of autism and is nonverbal at baseline. He also wears 5 L of oxygen at all times according to mom. UA suggested the presence of UTI. Patient was hospitalized for further management. Hospital Course: Diagnosis Obesity hypoventilation Restrictive lung disease secondary to scoliosis Acute on chronic respiratory failure with hypoxia and hypercapnia History of autism Anxiety Hypertension Seizure disorder Nonverbal Functional constipation Patient admitted to the medical floor and the following medical problems addressed: Obesity hypoventilation Restrictive lung disease secondary to scoliosis Acute on chronic respiratory failure with hypoxia and hypercapnia Arterial blood gas showed significant CO2 retention. Patient placed on BiPAP therapy however patient was always taking it off. Apparently, according to report patient was previously hospitalized at [facility] and attempt was made to arrange home NIV. Patient refused to use it and it was discontinued. Patient treated with bronchodilators. Patient oxygen requirement improved to baseline 5-6L by nasal cannula. Patient is currently awake and alert and at baseline. Acute cystitis without hematuria UA suggested the presence of UTI. Urine culture grew Enterobacter. Patient was treated with IV antibiotics and transitioned to oral Levaquin on discharge. Infectious disease Dr. Llanos evaluated patient and assisted with management and agrees with oral Levaquin on discharge. History of autism Anxiety Hypertension Seizure disorder Nonverbal Held lorazepam and hydroxyzine which can be quite sedating. Other medications continued during the hospital stay. Vital Signs/Physical Exam: Temp Pulse Resp BP Pulse Ox 98.2 F 85 16 146/89 H 90 L 10/14/24 12:00 10/14/24 12:10/14/24 12:10/14/24 12:25 12:00 General: In no apparent distress, Obese HEENT: Mucous membr. moist/pink Neck: JVD not distended Cardiovascular: Regular rate/rhythm, Normal S1 S2 Gastrointestinal: Soft and benign, Non-distended, No tenderness Musculoskeletal: No swelling Integumentary: No cyanosis Neurological: Other (No focal motor deficit.) Laboratory Data at Discharge: WBC 9.80 thou/uL (4.3-10.9) 10/12/24 05:27 Hgb 15.9 g/dL (13.6-17.9) 10/12/24 05:27 Hct 48.4 % (39.6-49.0) 10/12/24 05:27 Plt Count 260 thou/uL (152-406) 10/12/24 05:27 Sodium 139 mEq/L (136-145) 10/14/24 08:02 Potassium 4.0 mEq/L (3.5-5.1) 10/14/24 08:02 BUN 15 mg/dL (7-18) 10/14/24 08:02 Creatinine 0.74 mg/dL (0.70-1.30) 10/14/24 08:02 Glucose 104 mg/dL (74-106) 10/14/24 08:02 Phosphorus 2.6 mg/dL (2.5-4.9) 10/14/24 08:02 Magnesium 2.1 mg/dL (1.6-2.4) 10/10/24 15:30 Total Bilirubin 0.2 mg/dL (0.2-1.0) 10/11/24 04:55 AST 25 U/L (15-37) 10/11/24 04:55 ALT 31 U/L (16-61) 10/11/24 04:55 Alkaline Phosphatase 93 U/L (45-117) 10/11/24 04:55 Lipase 27 U/L (13-75) 10/10/24 15:30 Home Medications: Trazodone [Desyrel*] 225 mg PO BEDTIME 07/22/15 Buspirone HCl [Buspar] 10 mg PO BID 03/30/22 Acetaminophen with Codeine [Acetaminophen-Cod #4 Tablet] 1 each PO BIDP PRN 08/31/22 Cenobamate [Xcopri] 150 mg PO DAILY 08/31/22 Duloxetine HCl [Cymbalta] 40 mg PO BID 08/31/22 Famotidine [Pepcid] 40 mg PO BEDTIME 08/31/22 L.acidoph,Paracasei, B.lactis [Probiotic] 6 each PO DAILY 08/31/22 Multivitamin 1 each PO DAILY 08/31/22 Van-3 Fatty Acids [Van-3] 2 cap PO DAILY 08/31/22 Quetiapine Fumarate [Seroquel] 2 tab PO BEDTIME 08/31/22 Tamsulosin HCl 0.4 mg PO DAILY 08/31/22 hydroCHLOROthiazide [Hydrochlorothiazide] 25 mg PO BEDTIME 08/31/22 Metoprolol Succinate [Toprol Xl*] 25 mg PO DAILY 10/11/24 Montelukast [Singulair*] 10 mg PO BEDTIME 10/11/24 lisinopriL [Lisinopril] 5 mg PO DAILY 10/11/24 acetaZOLAMIDE [Acetazolamide] 250 mg PO BID #60 tab 10/14/24 levoFLOXacin [Levaquin*] 750 mg PO DAILY #6 tab 10/14/24 New Medications: acetaZOLAMIDE [Acetazolamide] 250 mg PO BID #60 tab levoFLOXacin [Levaquin*] 750 mg PO DAILY #6 tab Diet: AHA Activity: Fall precautions Followup: José Luis Diaz MD [Primary Care Provider] - 1-2 Weeks Time spent managing pt's care (in minutes): 35
== END 2024-10-14 16:05 | disposition home health service (06) | DRG 189 ==
LOC: ER 14:12 → ERHOLD 19:10 → 2ND 10-11 15:31
PROVIDERS: ADMIT Family Medicine; ATTEND Internal Medicine
PROC: 4A033R1 Measurement of Arterial Saturation, Peripheral, Percutaneous Approach (ICD-10-PCS; principal; 2024-10-11)
PROC: 5A0945A Assistance with Respiratory Ventilation, 24-96 Consecutive Hours, High Flow/Velocity Cannula (ICD-10-PCS; 2024-10-11)
DX: J96.21 Acute and chronic respiratory failure with hypoxia (principal); F84.0 Autistic disorder; E66.2 Morbid (severe) obesity with alveolar hypoventilation; Z68.43 Body mass index [BMI] 50.0-59.9, adult; E44.0 Moderate protein-calorie malnutrition; N30.00 Acute cystitis without hematuria; J96.22 Acute and chronic respiratory failure with hypercapnia; I10 Essential (primary) hypertension; M41.9 Scoliosis, unspecified; F41.9 Anxiety disorder, unspecified; J98.4 Other disorders of lung; K59.04 Chronic idiopathic constipation; G40.909 Epilepsy, unspecified, not intractable, without status epilepticus; B96.89 Other specified bacterial agents as the cause of diseases classified elsewhere; Z88.5 Allergy status to narcotic agent; Z88.2 Allergy status to sulfonamides; Z79.899 Other long term (current) drug therapy
CPT/HCPCS: 36415; 36600; 51702; 71045; 74018; 80048; 80053; 80069; 81001; 82805; 83690; 83735; 83880; 84484; 85025; 87077; 87086; 87088; 87186; 94660; 96365; 96366; 96375; 97116; 97161; 97530; 99285; J0696; J1120; J1650; J7030; J7050; J7613

== ENCOUNTER 2024-11-20 10:42 | Emergency (ER) | payer OTHER ==
--- NOTE | 2024-11-20 14:20 | EDPHYS ---
Physician Documentation [facility] Name: Navi Harp Age: 49 yrs Sex: Male : 1975 Arrival Date: 11/20/2024 Time: 10:42 Bed 2 Private MD: ED Physician Juana Rutledge HPI: 11/20 14:26 This 49 yrs old Male presents to ER via Wheelchair with complaints of Groin gb1 Pain, Wound Check. 14:26 49-year-old male autistic brought by his mom for concern in the right groin where there gb1 is pain and possibly swelling. She noticed that the patient was itching that area more than regular. He denies any fever or any kind of difficulty breathing or shortness of breath or chest pain. He is not on O2 via nasal cannula at home.. Historical: - Allergies: 11:02 Sulfa (Sulfonamide Antibiotics); ll1 11:02 tramadol; ll1 - PMHx: 11:02 Anxiety; Autism; Non-verbal; Home O2 via NC (Unknown); Hypertensive disorder; Kidney ll1 stone; leg swelling (Unknown); Non-verbal (Unknown); Seizure; spondylolysis (Unknown); - PSHx: 11:02 renal stent; ll1 - Immunization history:: Adult Immunizations up to date. - Infectious Disease History:: Denies. - Social history:: Smoking status: Patient denies any tobacco usage or history of. Exam: 14:26 Constitutional: This is a well developed, well nourished patient who is awake, alert, gb1 and in no acute distress. Head/Face: Normocephalic, atraumatic. Eyes: Pupils equal round and reactive to light, extra-ocular motions intact. Lids and lashes normal. Conjunctiva and sclera are non-icteric and not injected. Cornea within normal limits. Periorbital areas with no swelling, redness, or edema. ENT: Nares patent. No nasal discharge, no septal abnormalities noted. Tympanic membranes are normal and external auditory canals are clear. Oropharynx with no redness, swelling, or masses, exudates, or evidence of obstruction, uvula midline. Mucous membranes moist. Respiratory: Lungs have equal breath sounds bilaterally, clear to auscultation and percussion. No rales, rhonchi or wheezes noted. No increased work of breathing, no retractions or nasal flaring. Abdomen/GI: Soft, non-tender, with normal bowel sounds. No distension or tympany. No guarding or rebound. No evidence of tenderness throughout. Back: No spinal tenderness. No costovertebral tenderness. Full range of motion. Skin: Warm, dry with normal turgor. There is erythema to the right groin which appears to be consistent with tinea cruris. Patient is morbidly obese and there is area of excoriation there consistent with a fungal infection. Vital Signs: 11:04 BP 138 / 96; Pulse 91; Resp 20; Temp 97.3; Pulse Ox 84% on R/A; Weight 146.51 kg; ll1 Height 5 ft. 6 in. ; Pain 7/10; 13:07 BP 133 / 82; Pulse 84; Resp 17; Pulse Ox 97% on 5 lpm NC; dd2 14:55 BP 137 / 79; Pulse 81; Resp 18; Pulse Ox 96% on 5 lpm NC; ll1 11:04 Body Mass Index 52.13 (146.51 kg, 167.64 cm) ll1 11:04 Pain Scale: Adult ll1 MDM: 11:25 Medical Screening Exam initiated gb1 14:26 Data reviewed: vital signs, nurses notes. ED course: I recommend antifungal for tinea gb1 cruris that is present in the right groin. Likely secondary to body habitus.. Administered Medications: No medications were administered Disposition Summary: 11/20/24 14:20 Discharge Ordered Notes: Location: Home gb1 Problem: new gb1 Symptoms: are unchanged gb1 Condition: Stable gb1 Diagnosis - Tinea cruris gb1 Followup: gb1 - With: Private Physician - When: - Reason: Recheck today's complaints Discharge Instructions: - Discharge Summary Sheet gb1 - Jock Itch, [id number] gb1 Forms: - Medication Reconciliation Form gb1 - Antibiotic Education gb1 - Prescription Opioid Use gb1 - Patient Portal Instructions gb1 - Leadership Thank You Letter gb1 Prescriptions: - Clotrimazole 1 % Topical Cream - Apply to affected area 1 application TOPICAL route every 12 hours; 15 gram; gb1 Refills: 0, Product Selection Permitted Signatures: Kathy Hoffman RN RN ll1 Juana Rutledge MD MD gb1 EDGAR, JOCELIN, RN RN dd2
--- NOTE | 2024-11-20 14:20 | ER ---
Nurse's Notes [facility] Name: Navi Harp Age: 49 yrs Sex: Male : 1975 Arrival Date: 11/20/2024 Time: 10:42 Bed 2 Private MD: Diagnosis: Tinea cruris Presentation: 11/20 11:04 Chief complaint: Patient states: Mom noticed abscess to R groin area since last night. ll1 No fever. Admitted last month for 1 week. Coronavirus screen: Client denies travel out of the [place] in the last 14 days. At this time, the client does not indicate any symptoms associated with coronavirus-19. Ebola Screen: Patient denies travel to an Ebola-affected area in the 21 days before illness onset. Initial Sepsis Screen: Does the patient meet any 2 criteria? No. Patient's initial sepsis screen is negative. Does the patient have a suspected source of infection? No. Patient's initial sepsis screen is negative. Risk Assessment: Do you want to hurt yourself or someone else? Patient reports no desire to harm self or others. Onset of symptoms was November 19, 2024. 11:04 Method Of Arrival: Wheelchair ll1 11:04 Acuity: ANABEL 3 ll1 Triage Assessment: 11:04 General: Appears uncomfortable, Behavior is cooperative, appropriate for age, restless. ll1 Pain: Complains of pain in R groin Quality of pain is described as aching. Derm: Abscess located on R groin Parent/caregiver reports the patient having. Historical: - Allergies: 11:02 Sulfa (Sulfonamide Antibiotics); ll1 11:02 tramadol; ll1 - PMHx: 11:02 Anxiety; Autism; Non-verbal; Home O2 via NC (Unknown); Hypertensive disorder; Kidney ll1 stone; leg swelling (Unknown); Non-verbal (Unknown); Seizure; spondylolysis (Unknown); - PSHx: 11:02 renal stent; ll1 - Immunization history:: Adult Immunizations up to date. - Infectious Disease History:: Denies. - Social history:: Smoking status: Patient denies any tobacco usage or history of. Screenin:00 [facility] ED Fall Risk Assessment (Adult) History of falling in the last 3 months, dd2 including since admission No falls in past 3 months (0 pts) Confusion or Disorientation No (0 pts) Intoxicated or Sedated No (0 pts) Impaired Gait Yes (1 pt) Mobility Assist Device Used Yes (1 pt) Altered Elimination No (0 pt) Score/Fall Risk Level 0 - 2 = Low Risk Oriented to surroundings, Maintained a safe environment, Educated pt \T\ family on fall prevention, incl call for assistance when getting out of bed, Provided non-skid footwear. Abuse screen: Denies threats or abuse. Denies injuries from another. Nutritional screening: No deficits noted. Tuberculosis screening: No symptoms or risk factors identified. Assessment: 12:34 Reassessment: No changes from previously documented assessment. Patient and/or family ll1 updated on plan of care and expected duration. Pain level reassessed. Patient is alert, oriented x 3, equal unlabored respirations, skin warm/dry/pink. 14:00 General: Appears in no apparent distress. Behavior is calm, cooperative. Pain: dd2 Complains of pain in groin and right femoral area Pain does not radiate. Unable to use pain scale. Does not appear to understand pain scale. Patient appears to be grimacing, to be guarding. Neuro: Level of Consciousness is awake, alert, BASELINE DECREASE VERBAL R/T AUTISM. Cardiovascular: No deficits noted. Respiratory: No deficits noted. Airway is patent Respiratory effort is even, unlabored, Respiratory pattern is regular, symmetrical. GI: No deficits noted. No signs and/or symptoms were reported involving the gastrointestinal system. Abdomen is round obese. : REDNESS TO FOLDS AND GROIN. EENT: No deficits noted. No signs and/or symptoms were reported regarding the EENT system. Derm: Skin is moist, Skin is red, GROIN AND FOLDS NOTED TO BE MOIST WITH REDNESS Parent/caregiver reports the patient having burning, pain. Musculoskeletal: No deficits noted. No signs and/or symptoms reported regarding the musculoskeletal system. Vital Signs: 11:04 BP 138 / 96; Pulse 91; Resp 20; Temp 97.3; Pulse Ox 84% on R/A; Weight 146.51 kg; ll1 Height 5 ft. 6 in. ; Pain 7/10; 13:07 BP 133 / 82; Pulse 84; Resp 17; Pulse Ox 97% on 5 lpm NC; dd2 14:55 BP 137 / 79; Pulse 81; Resp 18; Pulse Ox 96% on 5 lpm NC; ll1 11:04 Body Mass Index 52.13 (146.51 kg, 167.64 cm) ll1 11:04 Pain Scale: Adult ll1 ED Course: 10:44 Patient arrived in ED. im 10:46 Juana Rutledge MD is Attending Physician. gb1 11:02 Arm band placed on left wrist. ll1 11:06 Triage completed. ll1 12:34 Patient placed in an exam room, on a stretcher. ll1 14:00 Patient has correct armband on for positive identification. Bed in low position. Call dd2 light in reach. Side rails up X2. Adult w/ patient. Client placed on continuous cardiac and pulse oximetry monitoring. NIBP monitoring applied. Door closed. Noise minimized. Warm blanket given. Pillow given. 14:00 No provider procedures requiring assistance completed. Patient did not have IV access dd2 during this emergency room visit. Oxygen administration via nasal cannula \T\ 5L/min. 14:31 JOCELIN HERNÁNDEZ, RN is Primary Nurse. dd2 14:36 Provided Education on: D/C EDUCATION. dd2 Administered Medications: No medications were administered Medication: 14:00 VIS not applicable for this client. dd2 Outcome: 14:20 Discharge ordered by . gb1 14:55 Patient left the ED. ll1 15:01 Discharged to home via wheelchair, 1 15:01 Condition: stable 15:01 Discharge instructions given to patient, family, Instructed on discharge instructions, follow up and referral plans. medication usage, Demonstrated understanding of instructions, follow-up care, medications, Prescriptions given X 1, Signatures: Kathy Hoffman RN RN 1 Laura Howell Juana Rutledge MD MD 1 JOCELIN HERNÁNDEZ, RN RN dd2 Corrections: (The following items were deleted from the chart) 11:08 11:04 BP 138 / 96; Pulse 91bpm; Resp 20bpm; Pulse Ox 84% RA; 146.51 kg; Height 5 ft. 6 ll1 in.; BMI: 52.1; Pain 7/10, Adult; ll1 13:20 13:07 BP 134 / 64; Pulse 64bpm; Resp 17bpm; Pulse Ox 94% 5 lpm Nasal Cannula; dd2 dd2
[2024-11-20 15:12] VITALS: TEMP 97.3
[2024-11-20 15:13] VITALS: BP 133/82; O2SAT 97
== END 2024-11-20 14:55 | disposition home or self-care (01) ==
LOC: ER 10:42
DX: B35.6 Tinea cruris (principal); F84.0 Autistic disorder

== ENCOUNTER 2025-04-16 16:07 | Emergency (ER) | payer OTHER ==
--- NOTE | 2025-04-16 17:33 | RAD REPORT ---
EXAMINATION: XR Tib Fib Left CLINICAL INDICATION: Male, 50 years old. PAIN TECHNIQUE: 2 view radiograph of the left tibia and fibula were obtained. COMPARISON: No prior exam. FINDINGS: No evidence of fracture or dislocation. Normal alignment. No evidence of arthropathy or oth er focal bone lesion. Soft tissues are unremarkable. IMPRESSION: No acute or significant abnormalities.
--- NOTE | 2025-04-16 17:33 | RAD REPORT ---
EXAMINATION: XR Femur Left CLINICAL INDICATION: Male, 50 years old. PAIN TECHNIQUE: 2 view radiograph of the left femur were obtained. COMPARISON: No prior exam. FINDINGS: No evidence of fracture or dislocation. Normal alignment. Mild to moderate hip joint degene rative changes. Poor penetration limits evaluation. No other focal bone lesion. Soft tissues are unremarkable. IMPRESSION: No acute osseous abnormalities. Degenerative hip joint changes as above.
--- NOTE | 2025-04-16 17:34 | RAD REPORT ---
EXAMINATION: XR Tib Fib Right CLINICAL INDICATION: Male, 50 years old. PAIN TECHNIQUE: 2 view radiograph of the right tibia and fibula were obtained. COMPARISON: No prior exam. FINDINGS: No evidence of fracture or dislocation. Normal alignment. No evidence of arthropathy or oth er focal bone lesion. Soft tissues are unremarkable. IMPRESSION: No acute or significant abnormalities.
--- NOTE | 2025-04-16 17:37 | RAD REPORT ---
EXAMINATION: XR Femur Right CLINICAL INDICATION: Male, 50 years old. PAIN RIGHT TECHNIQUE: 2 view radiograph of the right femur were obtained. COMPARISON: No prior exam. FINDINGS: No evidence of fracture or dislocation. Normal alignment. No evidence of arthropathy or oth er focal bone lesion, although poor penetration limits evaluation. Soft tissues are unremarkable. IMPRESSION: No acute or significant abnormalities.
--- NOTE | 2025-04-16 17:47 | RAD REPORT ---
EXAMINATION: ONE VIEW CHEST XR CLINICAL INDICATION: Male, 50 years old.,DYSPNEA TECHNIQUE: Frontal chest projection is submitted. Examination is limited by patient positioning and t echnique. COMPARISON: 10/11/2024 FINDINGS: The lungs show suboptimal inspiratory effort somewhat limits evaluation. Left basilar pleural-parench ymal opacity, and mild right basilar atelectasis, likely stable. No pneumothorax or sizable effusion. The heart is normal in size. Mediastinal contours are unremarkable. IMPRESSION: Stable left basilar pleural-parenchymal opacity, could reflect atelectasis or pneumonia with effusion .
--- NOTE | 2025-04-16 18:25 | EDPHYS ---
Physician Documentation [facility] Name: Navi Harp Age: 50 yrs Sex: Male : 1975 Arrival Date: 04/16/2025 Time: 16:07 Bed 4 Private MD: NIKOLAS Physician Mark Blake HPI: 04/16 19:03 This 50 yrs old Male presents to ER via Wheelchair with complaints of Fall Injury, kb Trouble Walking. 19:03 Patient is a 50-year-old male who presents for bilateral leg pain. Mother states that kb he was walking into his adult daycare when he tripped over the curb and fell to his knees yesterday. States he has been having pain when he stands from a sitting position and with walking. Patient is nonverbal. O2 sat on arrival was low, mother states patient is on home O2 at all times due to decreased lung expansion. States that his oxygen level is normally 90% on home O2. States that it is normally lower with his concentrator that they travel with because it does not work as well, believes it is not working at all right now. Patient is in no respiratory distress. Mother denies any recent respiratory illness.. Historical: - Allergies: 16:21 Sulfa (Sulfonamide Antibiotics); ll1 16:21 tramadol; ll1 - PMHx: 16:21 Anxiety; Autism; Non-verbal; Home O2 via NC (Unknown); Hypertensive disorder; Kidney ll1 stone; leg swelling (Unknown); Non-verbal (Unknown); Seizure; spondylolysis (Unknown); - PSHx: 16:21 renal stent; ll1 ROS: 19:01 Constitutional: As per HPI kb Exam: 19:01 Constitutional: This is a well developed, well nourished patient who is awake, alert, kb and in no acute distress. Head/Face: Normocephalic, atraumatic. ENT: Moist Mucous membranes Cardiovascular: Regular rate Skin: Warm, dry with normal turgor. Normal color. 19:01 Respiratory: Breath sounds: decreased breath sounds, that are moderate, are scattered, 19:01 Musculoskeletal/extremity: Extremities: grossly normal except: noted in the right stinson and left stinson: contusion, ROM: intact in all extremities, Circulation is intact in all extremities. Sensation intact. Vital Signs: 16:21 BP 113 / 81; Pulse 81; Pulse Ox 77% on 5 lpm NC; ll1 16:21 Pulse Ox 95% on 15 lpm NC; ll1 16:50 BP 130 / 110; Pulse 71; Resp 20; Pulse Ox 91% on 6 lpm NC; iw 18:05 BP 131 / 86; Pulse 71; Resp 16; Pulse Ox 92% on R/A; hb MDM: 16:18 Medical Screening Exam initiated kb 19:05 Differential diagnosis: contusion, fracture, strain. Data reviewed: vital signs, nurses kb notes. Consideration of Admission/Observation Escalation of care including admission/observation considered. Admission considered due to low oxygen saturation on arrival. Mother states that they live 5 miles from here and she will put him on his big O2 tank that he has at home and monitor his O2 sat. Patient's O2 sat is 92 to 93% on oxygen on the stretcher. Mother educated on return precautions.. Historians other than the Patient: Parent: mother. Counseling: I had a detailed discussion with the patient and/or guardian regarding the historical points, exam findings, and any diagnostic results supporting the discharge/admit diagnosis, radiology results, the need for outpatient follow up, a family practitioner, to return to the emergency department if symptoms worsen or persist or if there are any questions or concerns that arise at home. 04/16 16:23 Order name: Femur Right XRAY; Complete Time: 17:49 kb 04/16 16:23 Order name: Femur Left XRAY; Complete Time: 17:49 kb 04/16 16:23 Order name: Tib Fib Left XRAY; Complete Time: 17:49 kb 04/16 16:23 Order name: Tib Fib Right XRAY; Complete Time: 17:49 kb 04/16 16:34 Order name: Chest Single View XRAY; Complete Time: 17:49 kb Administered Medications: No medications were administered Disposition Summary: 04/16/25 18:24 Discharge Ordered Notes: Location: Home kb Condition: Stable kb Diagnosis - Pain in right leg kb - Pain in left leg kb Followup: kb - With: Emergency Department - When: As needed - Reason: Worsening of condition Followup: kb - With: Private Physician - When: 2 - 3 days - Reason: Recheck today's complaints, Continuance of care, Re-evaluation by your physician Discharge Instructions: - Discharge Summary Sheet kb - Musculoskeletal Pain kb Forms: - Medication Reconciliation Form kb - Antibiotic Education kb - Prescription Opioid Use kb - Patient Portal Instructions kb - Leadership Thank You Letter kb Signatures: Dispatcher [employer] EDLiudmila Bales, RUG DYER-C RUG DYER-Kathy Strange, RN RN ll1 Corrections: (The following items were deleted from the chart) 16:35 16:35 CBC+H.LAB.BRZ ordered. EDMS EDMS 16:35 16:35 BASIC METABOLIC PANEL+C.LAB.BRZ ordered. EDMS EDMS 16:36 16:34 IV Saline Lock ordered. kb camila
--- NOTE | 2025-04-16 18:25 | ER ---
Nurse's Notes [facility] Name: Navi Harp Age: 50 yrs Sex: Male : 1975 Arrival Date: 04/16/2025 Time: 16:07 Bed 4 Private MD: Diagnosis: Pain in right leg;Pain in left leg Presentation: 04/16 16:19 Chief complaint: Parent and/or Guardian states: PATIENT WAS WALKING INTO HIS ADULT ll1 DAYCARE, SLIPPED AND FELL, LANDING ON BOTH KNEES. MOM REPORTS HAVING DIFFICULTY STANDING AND WALKING NOW. Coronavirus screen: At this time, the client does not indicate any symptoms associated with coronavirus-19. Ebola Screen: No symptoms or risks identified at this time. Risk Assessment: Do you want to hurt yourself or someone else? Patient reports no desire to harm self or others. Onset of symptoms was April 15, 2025. 16:19 Method Of Arrival: Wheelchair ll1 16:19 Acuity: ANABEL 4 ll1 16:21 Initial Sepsis Screen: Does the patient meet any 2 criteria? No. Patient's initial ll1 sepsis screen is negative. Does the patient have a suspected source of infection? No. Patient's initial sepsis screen is negative. Triage Assessment: 16:21 General: Appears uncomfortable, Behavior is calm, cooperative. Pain: Complains of pain ll1 in right knee and left knee. Respiratory: O2 77 ON 5 LMP NC CONCENTRATOR. Historical: - Allergies: 16:21 Sulfa (Sulfonamide Antibiotics); ll1 16:21 tramadol; ll1 - PMHx: 16:21 Anxiety; Autism; Non-verbal; Home O2 via NC (Unknown); Hypertensive disorder; Kidney ll1 stone; leg swelling (Unknown); Non-verbal (Unknown); Seizure; spondylolysis (Unknown); - PSHx: 16:21 renal stent; ll1 Screenin:52 [facility] ED Fall Risk Assessment (Adult) History of falling in the last 3 months, iw including since admission Yes- single mechanical fall (1 pt) Confusion or Disorientation Yes (5 pts) Intoxicated or Sedated No (0 pts) Impaired Gait Yes (1 pt) Mobility Assist Device Used Yes (1 pt) Altered Elimination Yes (1 pt) Score/Fall Risk Level 3 or more points = High Risk Oriented to surroundings, Maintained a safe environment. Abuse screen: Denies threats or abuse. Denies injuries from another. Nutritional screening: No deficits noted. Tuberculosis screening: No symptoms or risk factors identified. Assessment: 16:52 General: Appears uncomfortable, obese, Behavior is cooperative, anxious. Neuro: Level iw of Consciousness is awake, alert, Oriented to none Moves all extremities. Cardiovascular: Patient's skin is warm and dry. Respiratory: Respiratory effort is even, labored, Respiratory pattern is regular. 18:06 Reassessment: Patient appears in no apparent distress at this time. Patient and/or hb family updated on plan of care and expected duration. Pain level reassessed. Vital Signs: 16:21 BP 113 / 81; Pulse 81; Pulse Ox 77% on 5 lpm NC; ll1 16:21 Pulse Ox 95% on 15 lpm NC; ll1 16:50 BP 130 / 110; Pulse 71; Resp 20; Pulse Ox 91% on 6 lpm NC; iw 18:05 BP 131 / 86; Pulse 71; Resp 16; Pulse Ox 92% on R/A; hb ED Course: 16:09 Patient arrived in ED. mr 16:18 Liudmila Bronson FNP-C is [facility]. kb 16:18 Mark Blake MD is Attending Physician. kb 16:21 Triage completed. ll1 16:21 Arm band placed on right wrist. ll1 16:51 Tiwla Villa, RAYSA is Primary Nurse. iw 16:55 No provider procedures requiring assistance completed. iw 17:14 Femur Right XRAY In Process Unspecified. EDMS 17:14 Femur Left XRAY In Process Unspecified. EDMS 17:14 Tib Fib Left XRAY In Process Unspecified. EDMS 17:14 Tib Fib Right XRAY In Process Unspecified. EDMS 17:14 Chest Single View XRAY In Process Unspecified. EDMS Administered Medications: No medications were administered Medication: 16:52 VIS not applicable for this client. iw Outcome: 18:24 Discharge ordered by MD. kb 18:49 Patient left the ED. iw Signatures: Dispatcher [employer] EDMS Liudmila Bronson FNP-C [employer]IN[employer]OVEMENT [employer]AD-Ckhiram Mauro Lu, Reg Reg mr Twila Villa, RN RN iw Lurdes Jeff RN RN Kathy Hoffman RN RN ll1 Corrections: (The following items were deleted from the chart) 16:55 16:50 Pulse Ox 91% 6 lpm Nasal Cannula; iw iw
[2025-04-16 19:14] VITALS: BP 131/86; O2SAT 92
== END 2025-04-16 18:49 | disposition home or self-care (01) ==
LOC: ER 16:07
DX: M79.605 Pain in left leg (principal); M79.604 Pain in right leg
CPT/HCPCS: 71045; 73552; 99281

== ENCOUNTER 2025-05-17 13:16 | Emergency (ER) | payer OTHER ==
--- NOTE | 2025-05-17 14:20 | EDPHYS ---
Physician Documentation [facility] Name: Navi Harp Age: 50 yrs Sex: Male : 1975 Arrival Date: 05/17/2025 Time: 13:16 Bed 13 Private MD: ED Physician Jose Agustin HPI: 05/17 13:44 This 50 yrs old Male presents to ER via Wheelchair with complaints of midline problem. rn 13:44 Patient brought in by family for replacement of midline IV catheter. Is almost done rn with IV antibiotics for UTI, has 2 or 3 days left, family member states he accidentally pulled it out today. Denies significant blood loss. Otherwise acting normal. No fever or chills. No other acute complaints.. Historical: - Allergies: 13:25 Sulfa (Sulfonamide Antibiotics); dd2 13:25 tramadol; dd2 - PMHx: 13:25 Anxiety; Autism; Non-verbal; Home O2 via NC; Hypertensive disorder; Kidney stone; leg dd2 swelling; Non-verbal; Seizure; spondylolysis; - PSHx: 13:25 renal stent; dd2 - Immunization history:: Adult Immunizations up to date. - Infectious Disease History:: Denies. - Social history:: Smoking status: Patient denies any tobacco usage or history of. - Family history:: not pertinent. - Hospitalizations: : No recent hospitalization is reported. ROS: 13:44 Constitutional: Negative for fever, chills, and weight loss, Cardiovascular: Negative rn for chest pain, palpitations, and edema, Respiratory: Negative for shortness of breath, cough, wheezing, and pleuritic chest pain, Exam: 13:44 Constitutional: This is a well developed, well nourished patient who is awake, alert, rn and in no acute distress. Vital Signs: 13:22 BP 122 / 85; Pulse 81; Resp 18; Temp 98.4; Pulse Ox 90% 5 lpm ; Weight 147.42 kg; dd2 MDM: 13:25 Medical Screening Exam initiated rn 13:44 Historians other than the Patient: Parent: Mother gives history given patient's severe rn autism, reports he handed her the midline catheter and there is no other acute complications that she knows of. She states was told to come to the emergency room for replacement.. 13:54 Differential Diagnosis Accidental displacement of midline IV catheter. Data reviewed: rn vital signs, nurses notes, and as a result, I will discharge patient. Counseling: I had a detailed discussion with the patient and/or guardian regarding the historical points, exam findings, and any diagnostic results supporting the discharge/admit diagnosis, the need for outpatient follow up, to return to the emergency department if symptoms worsen or persist or if there are any questions or concerns that arise at home. Special discussion: I discussed with the patient/guardian in detail that at this point there is no indication for admission to the hospital. It is understood, however, that if the symptoms persist or worsen the patient needs to return immediately for re-evaluation. Based on the history and exam findings, there is no indication for further emergent testing or inpatient evaluation. I discussed with the patient/guardian the need to see the primary care provider for further evaluation of the symptoms. 05/17 14:31 Order name: Jing. Order: MIDLINE insertion. SEE [email or web address] for order; Complete Time: 14:31ss Administered Medications: No medications were administered Disposition Summary: 05/17/25 14:19 Discharge Ordered Notes: Location: Home rn Problem: new rn Symptoms: have improved rn Condition: Stable rn Diagnosis - Accidental displacement of midline vascular access catheter rn Followup: rn - With: Private Physician - When: As needed - Reason: Recheck today's complaints, Re-evaluation by your physician Discharge Instructions: - Discharge Summary Sheet rn - Midline Catheter rn Forms: - Medication Reconciliation Form rn - Antibiotic cattle dehorner - Prescription Opioid Use rn - Patient Portal Instructions rn - Leadership Thank You Letter rn Signatures: Jose Agustin MD MD rn Blanchard, Shelby, RN RN ss JOCELIN HERNÁNDEZ RN RN dd2 Corrections: (The following items were deleted from the chart) 14:30 13:34 PICC Line Insertion ordered. rn ss
--- NOTE | 2025-05-17 14:20 | ER ---
Nurse's Notes [facility] Name: Navi Harp Age: 50 yrs Sex: Male : 1975 Arrival Date: 05/17/2025 Time: 13:16 Bed 13 Private MD: Diagnosis: Accidental displacement of midline vascular access catheter Presentation: 05/17 13:22 Chief complaint: Parent and/or Guardian states: PT PULLED OUT RT ARM MIDLINE ABOUT 1 dd2 HOUR AGO. PT HAS MIDLINE FOR ANTIBIOTIC INFUSIONS EVERY 12 HOURS. Coronavirus screen: At this time, the client does not indicate any symptoms associated with coronavirus-19. Ebola Screen: No symptoms or risks identified at this time. Initial Sepsis Screen: Does the patient meet any 2 criteria? No. Patient's initial sepsis screen is negative. Does the patient have a suspected source of infection? No. Patient's initial sepsis screen is negative. Risk Assessment: Do you want to hurt yourself or someone else? Patient reports no desire to harm self or others. Onset of symptoms was May 17, 2025 at 12:15. 13:22 Method Of Arrival: Wheelchair dd2 13:22 Acuity: ANABEL 3 dd2 Triage Assessment: 13:25 General: Appears in no apparent distress. Behavior is calm, cooperative, inappropriate dd2 for age. Pain: Denies pain. 13:25 Respiratory: Airway is patent Respiratory effort is even, unlabored, Respiratory dd2 pattern is regular, symmetrical. Historical: - Allergies: 13:25 Sulfa (Sulfonamide Antibiotics); dd2 13:25 tramadol; dd2 - PMHx: 13:25 Anxiety; Autism; Non-verbal; Home O2 via NC; Hypertensive disorder; Kidney stone; leg dd2 swelling; Non-verbal; Seizure; spondylolysis; - PSHx: 13:25 renal stent; dd2 - Immunization history:: Adult Immunizations up to date. - Infectious Disease History:: Denies. - Social history:: Smoking status: Patient denies any tobacco usage or history of. - Family history:: not pertinent. - Hospitalizations: : No recent hospitalization is reported. Screenin:[address] [facility] ED Fall Risk Assessment (Adult) History of falling in the last 3 months, jb4 including since admission No falls in past 3 months (0 pts) Confusion or Disorientation No (0 pts) Intoxicated or Sedated No (0 pts) Impaired Gait No (0 pts) Mobility Assist Device Used No (0 pt) Altered Elimination No (0 pt) Score/Fall Risk Level 0 - 2 = Low Risk Oriented to surroundings, Maintained a safe environment. Abuse screen: Denies threats or abuse. Nutritional screening: No deficits noted. Tuberculosis screening: No symptoms or risk factors identified. Assessment: 13:39 General: Appears in no apparent distress. comfortable, Behavior is calm, cooperative. jb4 Neuro: Level of Consciousness is awake, alert, Oriented to Pt is non verbal.. Cardiovascular: Patient's skin is warm and dry. Respiratory: Airway is patent Respiratory effort is even, unlabored, Respiratory pattern is regular, symmetrical. Derm: Skin is intact, Skin is pink, warm \T\ dry. Musculoskeletal: Circulation, motion, and sensation intact. Range of motion: intact in all extremities. Vital Signs: 13:22 BP 122 / 85; Pulse 81; Resp 18; Temp 98.4; Pulse Ox 90% 5 lpm ; Weight 147.42 kg; dd2 ED Course: 13:18 Patient arrived in ED. im 13:25 Triage completed. dd2 13:25 Jose Agustin MD is Attending Physician. rn 13:25 Arm band placed on right wrist. dd2 13:39 Patient has correct armband on for positive identification. Bed in low position. Call jb4 light in reach. Side rails up X 1. Provided Education on: plan of care to mother. 13:39 No provider procedures requiring assistance completed. jb4 14:39 Inserted PICC line: Reason for PICC placement: IV antibiotics Placed by: Picc team in jb4 right ,using aseptic technique. upper arm Flushed with 10 mL NS. Administered Medications: No medications were administered Medication: 13:39 VIS not applicable for this client. jb4 Outcome: 14:19 Discharge ordered by . rn 14:39 Discharged to home via wheelchair, with family, jb4 14:39 Condition: stable 14:39 Discharge instructions given to family, Instructed on discharge instructions, follow up and referral plans. Demonstrated understanding of instructions, follow-up care, 14:40 Patient left the ED. jb4 Signatures: Jose Agustin MD MD rn Bryson, James, RN RN jb4 Laura Howell JOCELIN HERNÁNDEZ RN RN dd2
[2025-05-17 15:23] VITALS: BP 122/85; TEMP 98.4; O2SAT 90
== END 2025-05-17 14:40 | disposition home or self-care (01) ==
LOC: ER 13:16
DX: T82.524A Displacement of infusion catheter, initial encounter (principal)
CPT/HCPCS: 36569; 99284

== ENCOUNTER 2025-05-18 10:11 | Emergency (ER) | payer OTHER ==
--- NOTE | 2025-05-18 14:46 | ER ---
Nurse's Notes [facility] Name: Navi Harp Age: 50 yrs Sex: Male : 1975 Arrival Date: 05/18/2025 Time: 10:11 Bed 20 Private MD: Diagnosis: Accidental displacement of midline intravenous catheter Presentation: 05/18 10:22 Chief complaint: Patient states: R arm midline accidentally pulled out some point this ll1 morning. Coronavirus screen: Client denies travel out of the [place] in the last 14 days. At this time, the client does not indicate any symptoms associated with coronavirus-19. Ebola Screen: Patient denies travel to an Ebola-affected area in the 21 days before illness onset. Initial Sepsis Screen: Does the patient meet any 2 criteria? No. Patient's initial sepsis screen is negative. Does the patient have a suspected source of infection? No. Patient's initial sepsis screen is negative. Risk Assessment: Do you want to hurt yourself or someone else? Patient reports no desire to harm self or others. Onset of symptoms was May 18, 2025. 10:22 Method Of Arrival: Wheelchair ll1 10:22 Acuity: ANABEL 3 ll1 Triage Assessment: 10:22 General: Appears uncomfortable, Behavior is calm, cooperative, appropriate for age. ll1 General: needs mid line to RUE replaced. Pain: Denies pain. Historical: - Allergies: 10:21 Sulfa (Sulfonamide Antibiotics); ll1 10:21 tramadol; ll1 - PMHx: 10:21 Anxiety; Autism; Non-verbal; Home O2 via NC; Hypertensive disorder; Kidney stone; leg ll1 swelling; Non-verbal; Seizure; spondylolysis; - PSHx: 10:21 renal stent; ll1 - Immunization history:: Adult Immunizations up to date. - Infectious Disease History:: Denies. - Family history:: not pertinent. - Hospitalizations: : No recent hospitalization is reported. - Social history:: Smoking status: Patient denies any tobacco usage or history of. Screenin:30 [facility] ED Fall Risk Assessment (Adult) History of falling in the last 3 months, cc6 including since admission No falls in past 3 months (0 pts) Confusion or Disorientation No (0 pts) Intoxicated or Sedated No (0 pts) Impaired Gait No (0 pts) Mobility Assist Device Used No (0 pt) Altered Elimination No (0 pt) Score/Fall Risk Level 0 - 2 = Low Risk Oriented to surroundings, Maintained a safe environment, Educated pt \T\ family on fall prevention, incl call for assistance when getting out of bed, Hourly rounding (assess needs \T\ fall precautionary measures) done. Abuse screen: Denies threats or abuse. Denies injuries from another. Nutritional screening: No deficits noted. Tuberculosis screening: No symptoms or risk factors identified. Assessment: 10:30 General: Appears in no apparent distress. uncomfortable, Behavior is calm, cooperative. cc6 Pain: Denies pain. Neuro: Level of Consciousness is awake, alert, obeys commands, Oriented to person, place, time. Cardiovascular: Capillary refill Patient's skin is warm and dry. Respiratory: Airway is patent Respiratory effort is even, unlabored, Respiratory pattern is regular, symmetrical. GI: No signs and/or symptoms were reported involving the gastrointestinal system. : No signs and/or symptoms were reported regarding the genitourinary system. EENT: No signs and/or symptoms were reported regarding the EENT system. Derm: No signs and/or symptoms reported regarding the dermatologic system. Musculoskeletal: No signs and/or symptoms reported regarding the musculoskeletal system. 13:35 Reassessment: Pt's mother updated about ETA for picc-line nurse, told her that we tried ph to contact him and are unsure of when he will arrive. Pt provided w/ sandwich, chips and drink. 14:21 Reassessment: Patient appears in no apparent distress at this time. No changes from ph previously documented assessment. Patient and/or family updated on plan of care and expected duration. Pain level reassessed. PICC line nurse at bedside for midline placement. Vital Signs: 10:22 BP 116 / 87; Pulse 80; Resp 20; Temp 97.6; Pulse Ox 94% on 5 lpm NC; Weight 146.06 kg; ll1 Height 5 ft. 5 in. ; Pain 0/10; 10:22 Body Mass Index 53.58 (146.06 kg, 165.1 cm) ll1 10:22 Pain Scale: Adult ll1 ED Course: 10:13 Patient arrived in ED. im 10:21 Jose Agustin MD is Attending Physician. rn 10:21 Arm band placed on. ll1 10:26 Triage completed. ll1 10:30 Bed in low position. Call light in reach. Side rails up X2. cc6 11:17 Ila Pride, RN is Primary Nurse. cc6 15:19 Provided Education on: how to wrap midline. cc6 15:19 No provider procedures requiring assistance completed. Patient did not have IV access cc6 during this emergency room visit. Administered Medications: No medications were administered Medication: 15:20 VIS not applicable for this client. cc6 Outcome: 14:46 Discharge ordered by . rn 15:08 Discharged to home via wheelchair, with family, cc6 15:08 Condition: stable 15:08 Discharge instructions given to family, Instructed on discharge instructions, follow up and referral plans. Demonstrated understanding of instructions, follow-up care, 15:20 Patient left the ED. cc6 Signatures: Jsoe Agustin MD MD rn Hall, Patricia, RN RN ph Lewis, Lynsay, RN RN [facility] Laura Howell Ila Pride, RN RN cc6
--- NOTE | 2025-05-18 14:46 | EDPHYS ---
Physician Documentation [facility] Name: Navi Harp Age: 50 yrs Sex: Male : 1975 Arrival Date: 05/18/2025 Time: 10:11 Bed 20 Private MD: ED Physician Jose Agustin HPI: 05/18 11:14 This 50 yrs old Male presents to ER via Wheelchair with complaints of midline problem. rn 11:14 Patient presents after pulling out midline IV catheter again. Was just seen by me rn yesterday with midline replacement. Mother states was going to check on him and he pulled out catheter once again. No other acute complaints.. Historical: - Allergies: 10:21 Sulfa (Sulfonamide Antibiotics); ll1 10:21 tramadol; ll1 - PMHx: 10:21 Anxiety; Autism; Non-verbal; Home O2 via NC; Hypertensive disorder; Kidney stone; leg ll1 swelling; Non-verbal; Seizure; spondylolysis; - PSHx: 10:21 renal stent; ll1 - Immunization history:: Adult Immunizations up to date. - Infectious Disease History:: Denies. - Family history:: not pertinent. - Hospitalizations: : No recent hospitalization is reported. - Social history:: Smoking status: Patient denies any tobacco usage or history of. ROS: 11:14 Constitutional: Negative for fever, chills, and weight loss, MS/Extremity: Positive for rn accidental displacement of intravenous catheter Exam: 11:14 Constitutional: This is a well developed, well nourished patient who is awake, alert, rn and in no acute distress. MS/ Extremity: Pulses equal, no cyanosis. Neurovascular intact. Full, normal range of motion. Equal circumference. Vital Signs: 10:22 BP 116 / 87; Pulse 80; Resp 20; Temp 97.6; Pulse Ox 94% on 5 lpm NC; Weight 146.06 kg; ll1 Height 5 ft. 5 in. ; Pain 0/10; 10:22 Body Mass Index 53.58 (146.06 kg, 165.1 cm) ll1 10:22 Pain Scale: Adult ll1 MDM: 10:21 Medical Screening Exam initiated rn 11:16 Differential Diagnosis Accidental displacement of midline IV catheter. Data reviewed: rn vital signs, nurses notes, and as a result, I will discharge patient. 14:45 Counseling: I had a detailed discussion with the patient and/or guardian regarding the rn historical points, exam findings, and any diagnostic results supporting the discharge/admit diagnosis, the need for outpatient follow up, to return to the emergency department if symptoms worsen or persist or if there are any questions or concerns that arise at home. Special discussion: I discussed with the patient/guardian in detail that at this point there is no indication for admission to the hospital. It is understood, however, that if the symptoms persist or worsen the patient needs to return immediately for re-evaluation. ED course: Midline has been placed successfully, tolerated well, will dc home with return precautions. . 05/18 13:45 Order name: [facility] [place] Order: MIDLINE insertion SEE [employer] FOR ORDER; Complete Time: 15:10 ss Administered Medications: No medications were administered Disposition Summary: 05/18/25 14:46 Discharge Ordered Notes: Location: Home rn Problem: new rn Symptoms: have improved rn Condition: Stable rn Diagnosis - Accidental displacement of midline intravenous catheter rn Followup: rn - With: Private Physician - When: As needed - Reason: Recheck today's complaints, Re-evaluation by your physician Forms: - Medication Reconciliation Form rn - Antibiotic surg rn - Prescription Opioid Use rn - Patient Portal Instructions rn - Leadership Thank You Letter rn Signatures: Jose Agustin MD MD rn Blanchard, Shelby, RN RN ss Kathy Hoffman RN RN ll1 Ila Pride, RN RN cc6 Corrections: (The following items were deleted from the chart) 13:45 10:21 PICC Line Insertion ordered. rn ss
[2025-05-18 16:02] VITALS: BP 116/87; TEMP 97.6; O2SAT 94
== END 2025-05-18 15:20 | disposition home or self-care (01) ==
LOC: ER 10:11
DX: T82.524A Displacement of infusion catheter, initial encounter (principal)
CPT/HCPCS: 99282

== ENCOUNTER 2025-05-19 12:23 | Emergency (ER) | payer OTHER ==
--- NOTE | 2025-05-19 16:36 | ER ---
Nurse's Notes [facility] Name: Navi Harp Age: 50 yrs Sex: Male : 1975 Arrival Date: 05/19/2025 Time: 12:23 Bed 26 Private MD: Diagnosis: Accidental displacement of midline intravenous catheter Presentation: 05/19 13:23 Chief complaint: Parent and/or Guardian states: patient pulled his PICC line out and me1 needs another for abx for UTI. o2 sat is 84% on 5 lpm via nc in triage. Coronavirus screen: Vaccine status: Patient reports being unvaccinated. Ebola Screen: No symptoms or risks identified at this time. Initial Sepsis Screen: Does the patient meet any 2 criteria? No. Patient's initial sepsis screen is negative. Does the patient have a suspected source of infection? No. Patient's initial sepsis screen is negative. Risk Assessment: Do you want to hurt yourself or someone else? Patient reports no desire to harm self or others. Onset of symptoms is unknown. 13:23 Method Of Arrival: Wheelchair me1 13:23 Acuity: ANABEL 3 me1 Historical: - Allergies: 13:25 Sulfa (Sulfonamide Antibiotics); me1 13:25 tramadol; me1 - PMHx: 13:25 Anxiety; Autism; Non-verbal; Home O2 via NC; Hypertensive disorder; Kidney stone; leg me1 swelling; Non-verbal; Seizure; spondylolysis; - PSHx: 13:25 renal stent; me1 - Immunization history:: Adult Immunizations up to date. - Infectious Disease History:: Denies. - Social history:: Smoking status: Patient denies any tobacco usage or history of. - Family history:: not pertinent. - Hospitalizations: : No recent hospitalization is reported. Screenin:30 [facility] ED Fall Risk Assessment (Adult) History of falling in the last 3 months, rg5 including since admission Yes- fall prone (multiple falls) (3 pts) Confusion or Disorientation Yes (5 pts) Intoxicated or Sedated No (0 pts) Impaired Gait Yes (1 pt) Mobility Assist Device Used Yes (1 pt) Altered Elimination Yes (1 pt) Score/Fall Risk Level 3 or more points = High Risk Oriented to surroundings, Maintained a safe environment, Hourly rounding (assess needs \T\ fall precautionary measures) done, Used ambulatory aids as needed (educated on \T\ assisted with). Abuse screen: Denies threats or abuse. Denies injuries from another. Nutritional screening: No deficits noted. Tuberculosis screening: No symptoms or risk factors identified. Assessment: 13:30 General: Appears uncomfortable, Behavior is calm, cooperative. Pain: Denies pain. rg5 Neuro: Level of Consciousness is awake, alert. Cardiovascular: Patient's skin is warm and dry. Respiratory: Airway is patent Trachea midline Respiratory effort is even, unlabored. GI: Abdomen is round Abd is soft. : No signs and/or symptoms were reported regarding the genitourinary system. EENT: No signs and/or symptoms were reported regarding the EENT system. Derm: Skin is intact, Skin is normal, Skin temperature is warm. Musculoskeletal: Circulation, motion, and sensation intact. Range of motion: intact in all extremities. 14:14 Reassessment: No changes from previously documented assessment. Patient and/or family rg5 updated on plan of care and expected duration. Pain level reassessed. Patient is alert, oriented x 3, equal unlabored respirations, skin warm/dry/pink. 15:18 Reassessment: No changes from previously documented assessment. Patient and/or family rg5 updated on plan of care and expected duration. Pain level reassessed. Patient is alert, oriented x 3, equal unlabored respirations, skin warm/dry/pink. 16:27 Reassessment: No changes from previously documented assessment. Patient and/or family rg5 updated on plan of care and expected duration. Pain level reassessed. Patient is alert, oriented x 3, equal unlabored respirations, skin warm/dry/pink. Vital Signs: 13:23 BP 128 / 78; Pulse 82; Resp 20; Temp 99; Pulse Ox 84% on 5 lpm NC; Weight 96.16 kg; me1 Height 5 ft. 5 in. ; Pain 0/10; 14:07 BP 134 / 99; Pulse 68; Resp 19; Pulse Ox 94% on 5 lpm NC; rg5 15:17 BP 135 / 88; Pulse 83; Resp 19; Pulse Ox 94% on 5 lpm NC; rg5 13:23 Body Mass Index 35.28 (96.16 kg, 165.1 cm) [facility] [place] 13:23 Pain Scale: Adult [facility] [place] ED Course: 12:26 Patient arrived in ED. mr 12:29 Jose Agustin MD is Attending Physician. rn 13:24 Triage completed. me1 13:25 Arm band placed on Patient placed in an exam room. me1 13:30 Patient has correct armband on for positive identification. Bed in low position. Side rg5 rails up X2. Adult w/ patient. Client placed on continuous cardiac and pulse oximetry monitoring. NIBP monitoring applied. child monitor on. Pulse ox on. NIBP on. Door closed. Noise minimized. Warm blanket given. 13:30 No provider procedures requiring assistance completed. rg5 13:32 Johann Leyva, RN is Primary Nurse. rg5 16:20 Inserted PICC line: Placed by: neal gonzales in left Cephalic vein ,using aseptic rg5 technique. fr. 4, 15cm. Administered Medications: No medications were administered Medication: 13:30 VIS not applicable for this client. rg5 Outcome: 16:35 Discharge ordered by . rn 17:00 Discharged to home via wheelchair, rg5 17:00 Condition: stable 17:00 Discharge instructions given to 17:01 Patient left the ED. rg5 Signatures: Lu Wade, Reg Reg mr Jose Agustin MD MD rn Eddleman, Michelle, RN RN mt1 Johann Leyva, RAYSA RN rg5 Corrections: (The following items were deleted from the chart) 15:19 14:07 BP 134 / 99; Pulse 68bpm; Resp 19bpm; Pulse Ox 100% 3 lpm Nasal Cannula; rg5 rg5 16:28 16:20 Inserted PICC line: Placed by: neal in left Cephalic vein ,using aseptic rg5 technique. fr. 4, 15cm rg5
--- NOTE | 2025-05-19 16:36 | EDPHYS ---
Physician Documentation [facility] Name: Navi Harp Age: 50 yrs Sex: Male : 1975 Arrival Date: 05/19/2025 Time: 12:23 Bed 26 Private MD: ED Physician Jose Agustin HPI: 05/19 16:29 This 50 yrs old Male presents to ER via Wheelchair with complaints of Removed PICC line.rn 16:29 Patient has had multiple midline catheters placed recently, continues to pull them out. rn No other acute complaints. Only has 2 days of antibiotics left.. Historical: - Allergies: 13:25 Sulfa (Sulfonamide Antibiotics); me1 13:25 tramadol; me1 - PMHx: 13:25 Anxiety; Autism; Non-verbal; Home O2 via NC; Hypertensive disorder; Kidney stone; leg me1 swelling; Non-verbal; Seizure; spondylolysis; - PSHx: 13:25 renal stent; me1 - Immunization history:: Adult Immunizations up to date. - Infectious Disease History:: Denies. - Social history:: Smoking status: Patient denies any tobacco usage or history of. - Family history:: not pertinent. - Hospitalizations: : No recent hospitalization is reported. ROS: 16:30 Constitutional: Negative for fever, chills, and weight loss, Cardiovascular: Negative rn for chest pain, palpitations, and edema, Respiratory: Negative for shortness of breath, cough, wheezing, and pleuritic chest pain, Exam: 16:30 Constitutional: This is a well developed, well nourished patient who is awake, alert, rn and in no acute distress. Vital Signs: 13:23 BP 128 / 78; Pulse 82; Resp 20; Temp 99; Pulse Ox 84% on 5 lpm NC; Weight 96.16 kg; me1 Height 5 ft. 5 in. ; Pain 0/10; 14:07 BP 134 / 99; Pulse 68; Resp 19; Pulse Ox 94% on 5 lpm NC; rg5 15:17 BP 135 / 88; Pulse 83; Resp 19; Pulse Ox 94% on 5 lpm NC; rg5 13:23 Body Mass Index 35.28 (96.16 kg, 165.1 cm) me1 13:23 Pain Scale: Adult me1 MDM: 12:30 Medical Screening Exam initiated rn 16:30 Data reviewed: vital signs, nurses notes, and as a result, I will discharge patient. rn Counseling: I had a detailed discussion with the patient and/or guardian regarding the historical points, exam findings, and any diagnostic results supporting the discharge/admit diagnosis, the need for outpatient follow up, to return to the emergency department if symptoms worsen or persist or if there are any questions or concerns that arise at home. Special discussion: I discussed with the patient/guardian in detail that at this point there is no indication for admission to the hospital. It is understood, however, that if the symptoms persist or worsen the patient needs to return immediately for re-evaluation. 05/19 12:30 Order name: PICC Line Insertion; Complete Time: 16:19 rn Administered Medications: No medications were administered Disposition Summary: 05/19/25 16:35 Discharge Ordered Notes: Location: Home rn Problem: new rn Symptoms: have improved rn Condition: Stable rn Diagnosis - Accidental displacement of midline intravenous catheter rn Followup: rn - With: Private Physician - When: As needed - Reason: Recheck today's complaints, Re-evaluation by your physician Forms: - Medication Reconciliation Form rn - Antibiotic research program internship - Prescription Opioid Use rn - Patient Portal Instructions rn - Leadership Thank You Letter rn Signatures: Jose Agustin MD MD rn Eddleman, Michelle RN RN me1
[2025-05-19 21:44] VITALS: TEMP 99
[2025-05-19 21:45] VITALS: O2SAT 94
[2025-05-19 21:47] VITALS: BP 135/88
== END 2025-05-19 17:01 | disposition home or self-care (01) ==
LOC: ER 12:23
DX: T82.524A Displacement of infusion catheter, initial encounter (principal); F41.9 Anxiety disorder, unspecified; F84.0 Autistic disorder; I10 Essential (primary) hypertension; Z88.2 Allergy status to sulfonamides; Z88.8 Allergy status to other drugs, medicaments and biological substances
CPT/HCPCS: 36569; 99284